=== PATIENT | male | born 1970 | race African-American/Black ===

== ENCOUNTER → 2023-01-14 | Outpatient (CLI) | payer OTHER, SELFPAY ==
--- NOTE | 2023-01-14 | COLBX_PTH ---
PATIENT: RITA LEWIS LOC: [facility] U#:[id number] AGE/SX: 52/M ROOM: RE01/14/[address]: Dr. Thiago Barboza MD : 1970 BED: DIS: 01/14/2023 SPEC #: [id number] RECD: 01/14/23 11:52 STATUS: MARICEL NAGA #: [id number] SKYE: 01/14/23 00:[address]: Thiago Barboza DEPT: SURGICAL PATHOLOGY RECD BY: Arturo Tripp Tissues: Sigmoid colon biopsy Procedures: Surgery Specimen Level IV HEADER OPERATION: Colonoscopy PRE-OP DIAGNOSIS: Screening TISSUE SUBMITTED: Sigmoid colon polyp MICROSCOPIC DIAGNOSIS Sigmoid colon polyp, biopsy: Hyperplastic polyp. OSKAR:anders 01/17/2023 MICROSCOPIC DESCRIPTION Slides are reviewed. GROSS DESCRIPTION Received in fixative is one container labeled with the patient's name and designated sigmoid colon polyp. The specimen consists of two fragments of villegas tissue measuring in aggregate 1.0 x 0.3 x 0.1 cm. The specimen is totally submitted in one cassette. / AM 01/14/2023 TC:1 CPT: 32483
== END | disposition home or self-care (01) ==
LOC: LABSPEC 14:47
PROVIDERS: Referring Provider Surgery; Visit Provider Surgery
DX: K63.5 Polyp of colon (principal)
CPT/HCPCS: 88305

== ENCOUNTER 2023-01-15 09:09 | Emergency (ER) | payer OTHER, SELFPAY ==
[2023-01-15 09:10] VITALS: BP 146/94; PULSE 63; RESP 14; TEMP 36.3; O2SAT 100; BMI 30.2
--- NOTE | 2023-01-15 09:52 | EDS_ITS ---
HPI History of Present Illness Chief Complaint: Nausea/Vomiting Narrative Narrative: 52-year-old male past medical history of hypercholesterolemia states he had routine colonoscopy performed by Dr. Barboza yesterday. Afterwards, his abdomen was firm and he felt bloated. Yesterday evening he had nausea and vomiting. In the last 24 hours he had 4-5 episodes of vomiting without any blood in his emesis. He states he is starting to pass gas as he stated he would over time. He awoke this morning and had decreased appetite and did not feel like eating breakfast. He was able to sit through a hearing aid test/fitting today and he states his abdominal pain has improved and that he is no longer vomiting. He presents with his for evaluation of the nausea and vomiting as a state that this is never happened to him previously after his colonoscopy 5 years ago and other procedures. PFSH PFSH Allergy/AdvReac Type Severity Reaction Status Date / Time No Known Allergies Allergy Verified 01/15/23 09:11 Social History Smoking Status: Never smoker ROS ROS ED ROS Narrative Constitutional: No fever, no chills. HEENT: No sore throat. No neck pain. No loss of vision. No rhinorrhea. Cardiovascular: No chest pain. No palpitations. No pedal edema. Respiratory: No cough, no shortness of breath. Abdominal: Positive abdominal bloating/abdominal pain, diffuse, improving. 4-5 episodes of nausea and vomiting in the last 24 hours after the procedure. Decreased appetite. No hematemesis. Positive flatulence. Genitourinary: No dysuria. No hematuria. Musculoskeletal: No myalgias. No arthralgias. Neurologic: No headaches. No dizziness. No lightheadedness. Skin: No rash. No change in color. Psychiatric: No depression. No anxiety. EXAM Physical Exam Narrative Exam Narrative: Afebrile. Vital signs noted. HEENT: Normocephalic. Atraumatic. PERRL, EOMI. Neck soft and supple. No point tenderness or step off. Cardiovascular: Regular rate and rhythm. No murmurs, rubs, or gallops appreciated. Respiratory: No tachypnea. Lungs clear to auscultation bilaterally. Gastrointestinal: Abdomen soft, nontender, with normoactive bowel sounds. No distention. No rebound or guarding. Neurological: Awake. Alert. Nonfocal, nonlateralizing. Skin: No rash. Normal color. No pallor. Musculoskeletal: No pedal edema. Full range of motion extremities. Const Vital Signs: 01/15/23 09:10 01/15/23 13:08 Temperature 97.3 F L Temperature Source Temporal Pulse Rate 63 60 Respiratory Rate 14 16 Blood Pressure 146/94 H 143/81 H Blood Pressure Mean 111 101 Pulse Ox 100 100 Oxygen Delivery Method Room Air Room Air MDM MDM MDM Narrative Medical decision making narrative: Patient does have bowel sounds so I am not concerned for ileus. I do not think he has a bowel obstruction. He may have had more of a reaction to the anesthesia/medication that he was given for the colonoscopy. I do not feel laboratory work is indicated as he only had 4-5 episodes of vomiting. However, I do feel that x-ray should be obtained to look for any sign of perforation or free air. Initially, patient declined any medications for nausea or for pain. I interpreted the x-rays of his abdomen/abdominal series and there is dilation of small bowel loops with air concerning for small bowel obstruction. I reviewed the radiology report which confirms my independent interpretation. They are recommending CT scan and I agree. Patient has not had any previous intra-abdominal surgeries to cause adhesions, however. I will draw basic laboratories including CBC and CMP to check his kidney function and order CT of the abdomen pelvis with IV contrast. While he declined further pain medications, he stated he would like something for nausea, so he was administered Zofran 4 mg intravenously. I reviewed the patient's laboratory work, WBC count 7.9, hemoglobin normal at 14.6, hematocrit 42.0, platelet count normal at 268. Sodium slightly low at 135 but normal potassium of 3.5 and normal chloride of 101. He has a normal BUN of 10 and creatinine also normal at 1.04. In review of his LFTs, they are essentially unremarkable. Of most significance is review of the CT report of the CT of the abdomen and pelvis with IV contrast. There is partial to complete small bowel obstruction noted with a transition point in the mid to right abdomen. NG tube will be placed. I reviewed and interpreted the KUB x-ray which does show the tip of the nasogastric tube to be in the region of the stomach. I reviewed the radiology report which confirms my independent interpretation. I discussed the patient with the on-call surgeon, Dr. Monzon who suggested that the patient be transferred to [facility] as he was just seen by one of their surgeons, Dr. Barboza. I discussed the patient with Dr. Tammy Foreman, who has accepted him in transfer. Transfer arrangements will be made through the [facility] transfer line. Currently, patient is in stable condition. Disposition is transferred. History & Record Review Discussion w/independent historian: Patient and Family Additional record(s) reviewed:: Prior outpatient record (Off patient's MyChart on cellular phone) and No prior records Lab Data Attestation: I reviewed the patient's lab results. Labs: Laboratory Results - last 24 hr 01/15/23 09:30 WBC 7.9 RBC 4.91 Hgb 14.6 Hct 42.0 MCV 85.5 MCH 29.7 MCHC 34.8 RDW Std Deviation 38.9 RDW Coeff of Kailash 12.6 Plt Count 268 MPV 11.0 Immature Gran % (Auto) 0.300 Neut % (Auto) 68.2 Lymph % (Auto) 24.3 Mckinley % (Auto) 6.7 Eos % (Auto) 0.1 Baso % (Auto) 0.4 Absolute Neuts (auto) 5.4 Absolute Lymphs (auto) 1.92 Nucleated RBC % 0 Sodium 135 L Potassium 3.5 Chloride 101 Carbon Dioxide 27.0 Anion Gap 7 BUN 10 Creatinine 1.04 Estim Creat Clear Calc 79.45 Est GFR (MDRD) Af Amer 97 Est GFR (MDRD) Non-Af 80 BUN/Creatinine Ratio 9.6 L Glucose 105 Calcium 9.3 Total Bilirubin 0.90 AST 17 ALT 25 Alkaline Phosphatase 79 Total Protein 8.0 Albumin 3.9 Globulin 4.1 Albumin/Globulin Ratio 1.0 Radiography Diagnostic Testing: Clinical Impression(s) from Imaging Studies Acute Abdomen Series 01/15/23 10:15 IMPRESSION: Dilated gaseous small bowel loops with air-fluid levels concerning for bowel obstruction. Further evaluation with CT scan of the abdomen and pelvis might be of value. Electronically Signed: Cali Dumont MD at 10:54 EDT , Abdomen/Pelvis CT 01/15/23 10:58 IMPRESSION: 1. Dilated proximal small bowel loops with normal caliber ileal loops concerning for distal small bowel obstruction which could be partial or complete. 2. Slightly prominent prostate. 3. Mild hepatic steatosis. Electronically Signed: Cali Dumont MD at 12:54 EDT , KUB X-Ray 01/15/23 14:10 IMPRESSION: Endogastric tube with the tip in the region of the stomach. Electronically Signed: Cali Dumont MD at 14:41 EDT , Discharge Plan Triage Chief Complaint: Nausea/Vomiting ED Provider: Earl Diaz Dx/Rx/DC Orders Clinical Impression: Status post colonoscopy with polypectomy, Small bowel obstruction, Nausea and vomiting Primary Care Provider: La Avila Referrals: La Avila MD [Primary Care Provider] - Disposition Disposition: Acute Care Hospital Discharge Location: [facility]
--- NOTE | 2023-01-15 10:15 | RAD_ITS ---
INDICATION: pain, nausea and vomiting after colonoscopy EXAMINATION/TECHNIQUE: X-RAY - XR Abdomen Series W/ Chest 1 View COMPARISON: None. FINDINGS: --Chest: LINES/DEVICES: None. LUNGS: Hypoventilatory changes in the right lung base. No focal infiltrate or pleural effusions. MEDIASTINUM AND CARDIOVASCULAR STRUCTURES: Cardiac silhouette not enlarged. Central airways and mediastinal contour are unremarkable. BONES AND SOFT TISSUES: No acute findings. --Abdomen: BOWEL GAS PATTERN: Dilated small bowel loops with air-fluid levels. Air is seen in the region of the rectum. FREE AIR: None visualized. ORGANOMEGALY: Not seen. CALCIFICATIONS: No abnormal calcifications observed. BONES AND SOFT TISSUES: No acute findings. RAD/Acute Abd Inc Chest (Portable) IMPRESSION: Dilated gaseous small bowel loops with air-fluid levels concerning for bowel obstruction. Further evaluation with CT scan of the abdomen and pelvis might be of value. Electronically Signed: Cali Dumont MD at 10:54 EDT ,
--- NOTE | 2023-01-15 10:58 | CT_ITS ---
STUDY: CT ABDOMEN AND PELVIS WITH CONTRAST - URINARY TRACT REASON FOR EXAM: Male, 52 years old. Pain, nausea and vomiting RADIATION DOSAGE (If Supplied By Facility): CTDIvol = ( 11.21 ) mGy, DLP = ( 887.09 ) mGycm TECHNIQUE: IV 100mL Isovue-300 was administered. Transaxial images were obtained from the dome of the diaphragm to the symphysis pubis in the arterial, nephrographic and excretory phases. Multiplanar coronal and sagittal images were reformatted. Individualized Dose Optimization Techniques Were Used For This CT. COMPARISON: Radiographs of the abdomen of the same day. FINDINGS: The visualized lung bases are unremarkable. The visualized portions of the heart are within normal limits. Small hypodense lesions in the right lobe of the above measuring less than 5 mm likely representing cysts difficult to characterize. Mild hepatic steatosis. Normal gallbladder and extrahepatic biliary system. Normal spleen. Normal pancreas. Normal bilateral adrenal glands. The antrum of the stomach is not well distended. Dilated fluid-filled small bowel loops with normal caliber ileal loops. There is a transitional zone on the right side of the mid abdomen. Colonic diverticulosis without evidence of acute diverticulitis. The colon is not distended. There is non-visualization of the appendix. Normal abdominal aorta. No retroperitoneal adenopathy. Normal right kidney. Normal left kidney. Normal urinary bladder. Prominent prostate with small calcification. Correlation with PSA level is recommended. Small umbilical hernia containing fat. Degenerative changes of the spine. CT/Abdomen/Pelvis W IV Cont ONLY IMPRESSION: 1. Dilated proximal small bowel loops with normal caliber ileal loops concerning for distal small bowel obstruction which could be partial or complete. 2. Slightly prominent prostate. 3. Mild hepatic steatosis. Electronically Signed: Cali Dumont MD at 12:54 EDT ,
[2023-01-15] MEDS: Ondansetron 4 MG/2 ML Vial IV (11:14)
[2023-01-15] MEDS: 0.9% Normal Saline 1,000 ML 1000 ML IV (11:14)
[2023-01-15 11:16] LABS: Absolute Lymphocyte Count 1.92 X10^3/uL (0.83-4.51); Absolute Neutrophil Count 5.4 X10^3/uL (2.0-7.7); Basophil# 0.03 X10^3/uL; Basophil% 0.4 % (0-1); Eosinophil# 0.01 X10^3/uL; Eosinophils% 0.1 % (0-5); Hemoglobin 14.6 g/dL (13.0-16.5); Lymphocyte # 1.92 X10^3/ul (0.83-4.51); Lymphocyte % 24.3 % (19-41); Mean Corp Hgb Conc 34.8 g/dL (32-36); Mean Corpuscular Hgb 29.7 pg (27.0-32.0); Mean Corpuscular Volume 85.5 fL (80-94); Monocyte# 0.53 X10^3/uL; Monocyte% 6.7 % (0-10); NRBC Flagged by Analyzer 0 % (0-5); Neutrophil # 5.38 X10^3/uL (2.7-7.7); Neutrophil % 68.2 % (47-70); Platelet Count 268 K/mm3 (150-450); RBC Distribution Width CV 12.6 % (11.6-14.6); RBC Distribution Width SD 38.9 fl (35.1-43.9); Red Blood Count 4.91 M/mm3 (4.6-6.2); White Blood Count 7.9 K/mm3 (4.4-11.0)
[2023-01-15 11:30] LABS: AST(SGOT) 17 U/L (15-37); Alanine Aminotransfer ALT/SGPT 25 U/L (16-61); Albumin, Serum 3.9 g/dL (3.2-5.0); Alkaline Phosphatase 79 U/L (45-117); Anion Gap 7 (5-15); BUN 10 mg/dL (7-18); BUN/Creat Ratio 9.6 RATIO (10-20); Calcium,Total 9.3 mg/dL (8.5-10.1); Chloride 101 mmol/L (98-107); Creatinine, Serum 1.04 mg/dL (0.70-1.30); EST Glomerular Filtration Rate 80 mL/min (>60); Est Glom Filt Rate - Afr Amer 97 mL/min (>60); Estimated Creatinine Clearance 79.45 ml/min; Globulin 4.1 g/dL (2.2-4.2); Glucose 105 mg/dL (74-106); Potassium 3.5 mmol/L (3.5-5.1); Sodium Level 135 mmol/L (136-145)
[2023-01-15 13:08] VITALS: BP 143/81; PULSE 60; RESP 16; O2SAT 100
[2023-01-15] MEDS: Oxymetazoline 0.05% 1 SPRAY SPRAY.BTL 2 SPRAY NASAL (13:39)
--- NOTE | 2023-01-15 14:10 | RAD_ITS ---
INDICATION: NG Insertion EXAMINATION/TECHNIQUE: X-RAY - XR Abdomen 1 View COMPARISON: Previous of the same date done earlier. FINDINGS: Nasogastric tube extends below the level of the diaphragm coiled in the region of the gastric fundus. Persistent nonspecific dilated bowel loops. RAD/Abdomen Single View (Portable) IMPRESSION: Endogastric tube with the tip in the region of the stomach. Electronically Signed: Cali Dumont MD at 14:41 EDT ,
[2023-01-15 17:22] VITALS: BP 138/79; PULSE 60; RESP 14; O2SAT 98
== END 2023-01-15 18:31 | disposition short-term general hospital (02) ==
PROVIDERS: Emergency Provider Emergency Medicine; PCP Internal Medicine; Visit Provider Emergency Medicine
DX: K56.609 Unspecified intestinal obstruction, unspecified as to partial versus complete obstruction (principal); E78.00 Pure hypercholesterolemia, unspecified; Z98.890 Other specified postprocedural states
CPT/HCPCS: 74018; 74022; 74177; 80053; 85025; 96361; 96374; 99284; J7030; Q9967; A4216; J2405

== ENCOUNTER 2023-10-14 00:52 | Emergency (ER) | payer BC, SELFPAY ==
[2023-10-14 00:53] VITALS: BP 162/89; PULSE 79; RESP 19; TEMP 36.2; O2SAT 100; BMI 31.4
[2023-10-14 01:21] LABS: Absolute Lymphocyte Count 3.94 X10^3/uL (0.83-4.51); Absolute Neutrophil Count 4.5 X10^3/uL (2.0-7.7); Basophil# 0.08 X10^3/uL; Basophil% 0.8 % (0-1); Eosinophil# 0.21 X10^3/uL; Eosinophils% 2.2 % (0-5); Hematocrit 41.6 % (40-54); Hemoglobin 14.5 g/dL (13.0-16.5); Lymphocyte # 3.94 X10^3/ul (0.83-4.51); Lymphocyte % 41.7 % (19-41); Mean Corp Hgb Conc 34.9 g/dL (32-36); Mean Corpuscular Hgb 29.4 pg (27.0-32.0); Mean Corpuscular Volume 84.2 fL (80-94); Mean Platelet Vol. 9.9 fl (6.2-12.0); Monocyte# 0.71 X10^3/uL; Monocyte% 7.5 % (0-10); NRBC Flagged by Analyzer 0 % (0-5); Neutrophil # 4.48 X10^3/uL (2.7-7.7); Neutrophil % 47.6 % (47-70); Platelet Count 263 K/mm3 (150-450); RBC Distribution Width SD 39.6 fl (35.1-43.9); Red Blood Count 4.94 M/mm3 (4.6-6.2); White Blood Count 9.4 K/mm3 (4.4-11.0)
[2023-10-14 01:41] LABS: Anion Gap 5 (5-15); BUN 18 mg/dL (7-18); BUN/Creat Ratio 14.5 RATIO (10-20); Calcium,Total 9.6 mg/dL (8.5-10.1); Chloride 105 mmol/L (98-107); Creatinine, Serum 1.24 mg/dL (0.70-1.30); EST Glomerular Filtration Rate 65 mL/min (>60); Est Glom Filt Rate - Afr Amer 79 mL/min (>60); Estimated Creatinine Clearance 75.85 ml/min; Glucose 111 mg/dL (74-106); Magnesium 2.2 mg/dL (1.6-2.6); Potassium 3.3 mmol/L (3.5-5.1); Sodium Level 137 mmol/L (136-145)
[2023-10-14 01:53] VITALS: BP 134/84; PULSE 69; RESP 16; O2SAT 97
[2023-10-14 02:00] VITALS: BP 134/88; PULSE 68; RESP 17; O2SAT 98
--- NOTE | 2023-10-14 02:03 | EDS_ITS ---
HPI History of Present Illness Chief Complaint: Numb/Ting Informant: patient and spouse/S.O. Narrative Narrative: Patient is a 53-year-old male with past medical history of hyperlipidemia. He states that he was out in his garage working when he suddenly got spasms and cramping to his right third and fourth digit and folic his forearm was tight. He states there was sensation of decreased feeling during this time. He reports symptoms lasted for a few minutes and then resolved. He states that this time he has no complaints but with concern this could have been neurologic he presents for evaluation. He denies any bouts of nausea vomiting or diarrhea which could lead to dehydration and states he does not take any type of diuretic PFSH PFS Home Medications potassium chloride 10 mEq capsule,extended release 10 meq PO DAILY 7 days #7 caps 10/14/23 [Rx Last Taken Unknown] tadalafil 5 mg tablet 5 mg PO PRN PRN sexual activity 10/14/23 [History Last Taken Unknown] Allergy/AdvReac Type Severity Reaction Status Date / Time No Known Allergies Allergy Verified 10/14/23 00:54 Social History Smoking Status: Never smoker ROS ROS ED Constitutional Constitutional ED: Denies chills or fever(s) Eyes Eyes: Denies change in vision ENT ENT ED: Denies sore throat Cardiovascular Cardiovascular: Denies chest pain or racing heartbeat Respiratory/Chest Respiratory/Chest: Denies cough or dyspnea Gastrointestinal Gastrointestinal: Denies abdominal pain, diarrhea, nausea or vomiting Genitourinary Genitourinary ED: Denies dysuria Musculoskeletal Musculoskeletal: Reports other Details: Positive right forearm pain/spasm ; Denies myalgias or neck pain Integumentary Denies rash Neurologic Neurologic: Reports paresthesias; Denies headache(s) or weakness Hematologic/Lymphatic Hematologic/Lymphatic: Denies easy bleeding or easy bruising EXAM Physical Exam Const Vital Signs: 10/14/23 00:53 10/14/23 01:53 10/14/23 02:00 Temperature 97.2 F L Temperature Source Temporal Pulse Rate 79 69 68 Respiratory Rate 19 H 16 17 Blood Pressure 162/89 H 134/84 H 134/88 H Blood Pressure Mean 113 100 103 Pulse Ox 100 97 98 Oxygen Delivery Method Room Air Room Air Room Air 10/14/23 02:20 Temperature 98.1 F Temperature Source Pulse Rate 68 Respiratory Rate 17 Blood Pressure 134/88 H Blood Pressure Mean 103 Pulse Ox 98 Oxygen Delivery Method Positive well nourished and well developed General Appearance ED: well developed; Negative for pallor HEENT HEENT Narrative: Normocephalic atraumatic Eyes PERRL and EOMs intact bilaterally Neck supple Neck Narrative: No bony deformity or step-off of the cervical spine no midline pain on palpation Negative Spurling sign bilaterally Resp normal respiratory effort and clear to auscultation bilaterally Cardio regular rate and regular rhythm Rate: other Other Details: Radial and carotid pulses are equal and symmetric No carotid bruit noted GI normal to inspection, nondistended, normoactive bowel sounds, non-tender, non- distended and no masses Auscultation: normoactive bowel sounds Palpation: soft Extremity normal to inspection Extremity Narrative: Right upper extremity is neurovascularly intact; AIN/PIN are intact and normal Patient has full active range of motion Compartments are soft and compressible going against compartment syndrome No asymmetric edema or pitting edema noted No overlying soft tissue changes to suggest trauma or infection Neuro oriented x3, CN's II-XII intact bilaterally and no sensory deficits noted Neuro Narrative: Cranial nerves II through XII are grossly intact without focal neurologic def icit No pronator drift no dysmetria no truncal ataxia NIH stroke scale score of 0 Sensorium / Orientation: alert Motor Exam: strength 5/5 throughout Psych mental status grossly normal Skin no rashes or lesions noted and no wounds General Skin Exam: Negative for jaundice or pallor MDM MDM MDM Narrative Medical decision making narrative: Patient presented to the ER hypertensive otherwise with stable vitals. He reported a spasm of his right third and fourth digit with firmness and decreased sensation in his right forearm for a few minutes. He denied any other associated symptoms. Differential diagnosis is for muscular spasm versus acute kidney injury versus electrolyte abnormality versus exertional compartment syndrome. Based on his history and exam this does not correlate with a TIA or acute stroke and I do not feel the need for a CT or CTA. Basic blood work was obtained to check for potential electrolyte abnormality and showed mild h ypokalemia at 3.3. Without treatment the patient's blood pressure improved and on reevaluation his neurologic exam remains normal with stroke scale score of 0. He also remains to have full function of the right arm without any spasms or findings of compartment syndrome. Therefore at this time history and exam indicates he most likely had a muscular spasm of the right forearm leading contracture of his third and fourth digit. His potassium was replaced as it was slightly low but as overall workup was negative with no return of symptoms I do not feel need for further evaluation and he is otherwise safe for discharge History & Record Review Discussion w/independent historian: Patient and Significant other Lab Data Attestation: I reviewed the patient's lab results. Labs: Laboratory Results - last 24 hr 10/14/23 01:13 WBC 9.4 RBC 4.94 Hgb 14.5 Hct 41.6 MCV 84.2 MCH 29.4 MCHC 34.9 RDW Std Deviation 39.6 RDW Coeff of Kailash 13.0 Plt Count 263 MPV 9.9 Immature Gran % (Auto) 0.200 Neut % (Auto) 47.6 Lymph % (Auto) 41.7 H [place] % (Auto) 7.5 Eos % (Auto) 2.2 Baso % (Auto) 0.8 Absolute Neuts (auto) 4.5 Absolute Lymphs (auto) 3.94 Nucleated RBC % 0 Sodium 137 Potassium 3.3 L Chloride 105 Carbon Dioxide 27.0 Anion Gap 5 BUN 18 Creatinine 1.24 Estim Creat Clear Calc 75.85 Est GFR (MDRD) Af Amer 79 Est GFR (MDRD) Non-Af 65 BUN/Creatinine Ratio 14.5 Glucose 111 H Calcium 9.6 Magnesium 2.2 Discharge Plan Triage Chief Complaint: Numb/Ting ED Provider: Mamadou Herring Dx/Rx/DC Orders Clinical Impression: Muscle spasm, Acute hypokalemia Instructions: ED Hypokalemia, ED Muscle Spasm Prescriptions: New potassium chloride 10 mEq capsule, extended release 10 meq PO DAILY 7 Days Qty: 7 0RF No Action tadalafil 5 mg tablet 5 mg PO PRN PRN (Reason: sexual activity) Primary Care Provider: La Avila Referrals: La Avila MD [Primary Care Provider] - Activity Restrictions/Additional Instructions: Your potassium was slightly low today which could have been the cause of your muscular spasm/hand cramping. Take the prescribed medication for the next week to bring the value to a normal level and keep yourself well-hydrated. Return to the ER should you have any further concerns Disposition Disposition: Home, Self Care Discharge Date/Time: 10/14/23 02:20
[2023-10-14] MEDS: Potassium Chloride Oral Tablet 20 MEQ PO (02:17)
[2023-10-14 02:20] VITALS: BP 134/88; PULSE 68; RESP 17; TEMP 36.7; O2SAT 98
== END 2023-10-14 02:20 | disposition home or self-care (01) ==
PROVIDERS: Emergency Provider Emergency Medicine; PCP Internal Medicine; Visit Provider Emergency Medicine
DX: M62.838 Other muscle spasm (principal); E87.6 Hypokalemia; E78.5 Hyperlipidemia, unspecified; R20.0 Anesthesia of skin
CPT/HCPCS: 80048; 83735; 85025; 99283

== ENCOUNTER 2025-01-29 12:29 | Day surgery (SDC) | payer BC, SELFPAY ==
[2025-01-29] VITALS (8 sets, daily range): BP systolic 110–130; BP diastolic 70–85; PULSE 56–69; RESP 14–18; TEMP 37–37.2; O2SAT 98–99; BMI 30.4
[2025-01-29] MEDS: Lactated Ringers 1,000 ML 15 ML IV (13:02)
--- NOTE | 2025-01-29 13:22 | PCM.PRE.AN2 ---
ASA Classification* ASA Classification ASA Classification: 1 Assessment & Plan Anesthesia* Anesthesia Assessment Anesthesia Assessment: Discussed sedation and/or anesthesia options, risks, benefits, and alternatives with patient/parents/legal guardian/POA. Questions invited. The patient/parents/legal guardian/POA seems to understand and agrees to proceed with anesthesia plan. Reviewed the physical assessment, medical history, allergy history and patient home medications list prior to surgery/procedure/anesthetic and documented any changes. Performed airway and anesthesia risk assessments. Anesthesia Type Anesthesia Type: MAC History Source History Obtained from:: Patient and Chart Anesthesia Focused Assessment* Temperature: 98.6 F Pulse Rate: 56 Blood Pressure: 130/85 Respiratory Rate: 14 Pulse Ox: 99 Oxygen Delivery Method: Room Air Airway Assessment Mouth opens: >3 cm Mallampati Score: II Teeth Condition: Intact Neck Range of motion (ROM): Full ROM Labs Anesthesia Preop lab: CBC WBC 9.4 K/mm3 (4.4-11.0) 10/14/23 01:10/14/23 RBC 4.94 M/mm3 (4.6-6.2) 10/14/23 01:10/14/23 Hgb 14.5 g/dL (13.0-16.5) 10/14/23 01:10/14/23 Hct 41.6 % (40-54) 10/14/23 01:13 10/14/23 Plt Count 263 K/mm3 (150-450) 10/14/23 01:13 10/14/23 CHEMISTRY Potassium 3.3 mmol/L (3.5-5.1) L 10/14/23 01:13 10/14/23 Sodium 137 mmol/L (136-145) 10/14/23 01:10/14/23 Magnesium 2.2 mg/dL (1.6-2.6) 10/14/23 01:10/14/23 BUN 18 mg/dL (7-18) 10/14/23 01:10/14/23 Creatinine 1.24 mg/dL (0.70-1.30) 10/14/23 01:13 10/14/23 Glucose 111 mg/dL (74-106) H 10/14/23 01:13 10/14/23 COAG Pre-Assessment Diagnosis/Proposed Procedure Planned Operative Procedure(s): EGD Anesthesia History Anesthesia History - direct of real estate: Anesthesia History - direct of real estate Hx Hospitalization No 01/24/25 13:31 Any Problems With Anesthesia No 01/24/25 13:31 Cholinesterase deficiency No 01/24/25 13:31 You/Your Family Experience No 01/24/25 13:31 fever (hyperthermia) with Relationship Recent Exposure to Contagious No 01/29/25 12:53 Disease Does patient have nerve No 01/24/25 13:31 stimulator Patient instructed to have device shut off --Does patient have Pacemaker No 01/29/25 12:53 or ICD? When Was Last Pacemaker Check QUESTION #4 FULL TEXT: You/Your Family Experience fever (hyperthermia) with Anesthesia Last Oral Intake Last Oral intake: Last Oral Intake NPO since 22:00 01/29/25 12:53 Meds taken in AM with sips of No 01/29/25 12:53 water? Meds patient instructed to take am of surgery PONV PONV - direct of real estate: PONV - direct of real estate Female No 01/24/25 13:31 HX of Motion Sickness No 01/24/25 13:31 HX of N/V After Surgery No 01/24/25 13:31 Non-Smoker Yes 01/24/25 13:31 Duration of Surgery greater No 01/24/25 13:31 than 60 minutes Number of Risk Factors 1 01/24/25 13:31 PONV Score Low Risk 01/24/25 13:31 Height & Weight Height & Weight: Anesthesia: Height & Weight Height 5 ft 7 in 01/29/25 12:53 Weight: 88 kg 01/29/25 12:53 Body Mass Index (BMI) 30.4 01/29/25 12:53 Respiratory Assessment Respiratory Assessment - direct of real estate: Respiratory Tract Infection Hx - direct of real estate Hx Respiratory Tract Infection No 01/24/25 13:31 STOP Sleep Apnea STOP Sleep Apnea - direct of real estate: STOP Sleep Apnea - direct of real estate Hx Hypertension No 01/24/25 13:31 Hx Sleep Apnea No 01/24/25 13:31 CPAP BIPAP Do you snore loudly (louder No 01/24/25 13:31 than talking or can be heard Do you often feel tired/ No 01/24/25 13:31 fatigued/ sleepy during daytime? Has anyone observed you stop No 01/24/25 13:31 breathing during sleep? STOP Results Negative 01/24/25 13:31 QUESTION #5 FULL TEXT : Do you snore loudly (louder than talking or can be heard through closed doors)? 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 Specify any problems Hx of Preganancy in last 3 N/A 01/24/25 13:31 Months Nurse Filling Out Transfusion [id number] 01/24/25 13:31 & Questions: Date: 01/24/25 01/24/25 13:31 Time: 13:33 01/24/25 13:31 Patient unable to answer at this time (ie. confused, unrespo /Reproduction History /Reproductive History - direct of real estate: /Reproductive Hx- direct of real estate Hx Now Gestational Age (in weeks): EDC: Hx Hx Para Hx Section SAB Active Medications Active Medications: Current Medications Generic Name Dose Route Start Last Admin Trade Name Freq PRN Reason Stop Dose Admin Lactated Ringer's 1,000 mls @ 15 mls/hr 01/29/25 12:45 01/29/25 13:02 IV 15 mls/hr .Q48H ELEONORA Administration PFSH Medical History (Updated 01/24/25 @ 13:36 by Dean Newsome) Wears contact lenses Wears hearing aid Loss of hearing Colonoscopy planned Former smoker Gastric reflux Home Medications ?Medication ?Instructions ?Recorded ?Last Taken ?Type omeprazole 40 mg capsule,delayed 40 mg PO QDAY PRN GERD 01/24/25 01/26/25 History release Allergy/AdvReac Type Severity Reaction Status Date / Time No Known Allergies Allergy Verified 01/29/25 12:52 Surgical History (Updated 01/24/25 @ 13:36 by Dean Newsome) H/O knee surgery Social History Smoking Status: Never smoker Review of Systems (Anesthesia) ROS Narrative System reviewed and no additional complaints, except as documented.
--- NOTE | 2025-01-29 13:30 | EGD_PTH ---
PATIENT: RITA LEWIS LOC: [facility] U#:[id number] AGE/SX: 54/M ROOM: RE01/29/[address]: Dr. Jhonathan House DO : 1970 BED: DIS: 01/29/2025 SPEC #: [id number] RECD: 01/29/25 15:52 STATUS: MARICEL REChristopher #: [id number] SKYE: 01/29/25 13:[address]: Jhonathan House DEPT: SURGICAL PATHOLOGY RECD BY: Silvino Wills ENTERED: 01/30/25 09:23 SP TYPE: EGD BIOPSY JOHNSON DR: Dr. La Avila MD Tissues: A - Esophagus, NOS B - Duodenum, NOS C - Esophagus, NOS Procedures: Surgery Specimen Level IV HEADER OPERATION: EGD with biopsy PRE-OP DIAGNOSIS: GERD TISSUE SUBMITTED: A- Distal esophagus biopsy, B- Duodenum biopsy, C- Proximal esophagus biopsy MICROSCOPIC DIAGNOSIS A. Distal esophagus, biopsy: - Columnar mucosa with no specific pathologic change. - Negative for goblet cell metaplasia. - No squamous mucosa seen. B. Duodenum, biopsy: - Normal villous architecture with Tamera gland hyperplasia and focal gastric mucin cell metaplasia. - Negative for increased intraepithelial lymphocytes. C. Proximal esophagus, biopsy: - Benign squamous mucosa negative for eosinophils. MICROSCOPIC DESCRIPTION Slides are reviewed. GROSS DESCRIPTION A. Received in fixative is one container labeled with the patient's name and designated Distal esophagus biopsy. The specimen consists of one irregular fragment of light villegas soft tissue that measures 0.3 cm. The specimen is totally submitted in one cassette. B. Received in fixative is one container labeled with the patient's name and designated Duodenum biopsy. The specimen consists of two irregular fragments of light villegas soft tissue that in aggregate measure 0.3 and 0.4 cm. The specimen is totally submitted in one cassette. C. Received in fixative is one container labeled with the patient's name and designated Proximal esophagus biopsy. The specimen consists of two irregular fragments of light villegas soft tissue that in aggregate measure 0.3 and 0.5 cm. The specimen is totally submitted in one cassette. AR 01/30/2025 CPT:65673s2
--- NOTE | 2025-01-29 13:59 | HP.PCM_ITS ---
[facility] - General General Date of Admission: 01/29/25 Date of Service: 01/29/25 Chief Complaint: GERD HPI Narrative RITA LEWIS, is a 54 M who presents with the Chief Complaint: GERD Over the past two weeks patient has been having nocturnal heartburn symptoms. This is not something he has had in the past. The first night he woke up with burning pain and was unable to breath. He notes he did have a lot of pizza and soda the night prior. He has been nervous since then and taking measures to avoid this like sleeping upright. He notices some reflux during the day. He has never had an EGD or been on PPI. Last colonoscopy was in 2022 with re commendation for repeat in 10 years. HE has had polyps in the past. REPLACED BY [facility] Medical History Wears contact lenses Wears hearing aid Loss of hearing Colonoscopy planned Former smoker Gastric reflux Home Medications ?Medication ?Instructions ?Recorded ?Last Taken ?Type omeprazole 40 mg capsule,delayed 40 mg PO QDAY PRN ASHWINI D 01/24/25 01/26/25 History release Allergy/AdvReac Type Severity Reaction Status Date / Time No Known Allergies Allergy Verified 01/29/25 12:52 Surgical History H/O knee surgery Social History Smoking Status: Never smoker ROS Constitutional Constitutional: Denies fatigue, fever(s), poor appetite, weight gain or weight loss Gastrointestinal Gastrointestinal: Denies belching, bloating, change in bowel habits, change in stool character, chewing difficulty, coffee ground emesis, constipation, cramping, diarrhea, dyspepsia, dysphagia, early satiety, excessive flatus, fecal incontinence, heartburn, hematemesis, hematochezia, hemorrhoids, loose stools, melena, nausea, odynophagia, rectal bleeding, tenesmus, vomiting or weight changes Vital Signs Vital Signs Vital Signs: 01/29/25 12:53 01/29/25 12:53 01/29/25 13:27 Temperature 98.6 F 98.6 F Temperature Source Temporal Pulse Rate 56 L 56 L Respiratory Rate 14 14 Respiratory Pattern Normal Blood Pressure 130/85 H 130/85 H Blood Pressure Mean 100 Blood Pressure Source Monitor Blood Pressure Position Semi-Fowlers Blood Pressure Location Right Arm Pulse Ox 99 99 Oxygen Delivery Method Room Air Room Air Weight Weight: 194 lb 0.108 oz Body Mass Index (BMI) 30.4 Physical Exam Const alert, oriented x3, no apparent distress and healthy appearing General Appearance: cooperative GI normal to inspection, nondistended, normoactive bowel sounds, soft to palpation, non-tender and non-distended Percussion: normal to percussion Rectal Exam: deferred Assessment & Plan Assessment/Plan (1) GERD (gastroesophageal reflux disease): PLAN: Assessment and Plan Assessment and Plan (1) Gastroesophageal reflux disease: Plan: Rita is a 54 yo male pt with reflux symptoms x2 weeks. Pt notes waking up during the night with inability to breath and burning pain in his esophagus. He now feels some GERD throughout the day. He has never had an EGD. Pt likely has GERD with possible laryngospasm. I have started him on omeprazole 40 mg daily. We may add famotidine if needed. He was scheduled for EGD however if his symptoms resolve he may cancel. He was advised to avoid fatty foods, caffeine, carbonation and chocolate. He will continue to sleep with the head of his bed elevated. -Start omeprazole 40 mg daily -EGD if symptoms do not resolve -Consider famotidine in the evening -f/u after pecodure or sooner if needed Medications: New omeprazole 40 mg PO QDAY 30 caps 1RF
--- NOTE | 2025-01-29 14:35 | PCM.POST.ANE ---
Anesthesia: Postop Eval I Current Vital Signs Temperature: 98.8 F Pulse Rate: 64 Blood Pressure: 117/79 Respiratory Rate: 16 Pulse Ox: 98 Oxygen Delivery Method: Room Air Assessment Airway patent: Yes Spontaneous unlabored respirations: Yes Mental status: Awake and Calm nausea: No Vomiting: No Anesthesia Complication: No Fluid Hydration Crystalloid volume administer (ml): 200 Total IV fluid infused: 200 Progress Note Anesthesia document: Postop Eval 1 completed: Yes
--- NOTE | 2025-01-29 14:40 | OP.PROVAT_ITS ---
01/29/2025 La Avila [address] [place] [address] Re : Upper GI endoscopy procedure for Eric Barrios Dear Dr. Avila This procedure was performed on Wednesday, January 29, 2025. My impressions and recommendations are as follows: Impressions : Recommendations : - Continue present medications. My findings are described in the full procedure note, which is enclosed. If I can be of further assistance, please feel free to contact me at . Sincerely, Jhonathan House, 01/29/2025 2:39:36 PM This report has been signed electronically.
--- NOTE | 2025-01-29 14:40 | OP.EGD_ITS ---
Patient Name: Eric Barrios Procedure Date: 01/29/2025 2:09 PM Date of : 1970 Age: 54 Procedure: Upper GI endoscopy Indications: Suspected esophageal reflux Providers: Jhonathan House DO Referring MD: La Avila Medicines: Monitored Anesthesia Care Patient Profile: This is a 54 year old male. Refer to note in patient chart for documentation of history and physical. Patient has symptoms of acute regurgitation and acute throat burning. Complications: No immediate complications. Procedure: Pre-Anesthesia Assessment: - Prior to the procedure, a History and Physical was performed, and patient medications and allergies were reviewed. The patient is competent. The risks and benefits of the procedure and the sedation options and risks were discussed with the patient. All questions were answered and informed consent was obtained. Patient identification and proposed procedure were verified by the physician in the pre-procedure area. Mental Status Examination: alert and oriented. Airway Examination: normal oropharyngeal airway and neck mobility. Respiratory Examination: clear to auscultation. CV Examination: normal. Prophylactic Antibiotics: The patient does not require prophylactic antibiotics. Prior Anticoagulants: The patient has taken no anticoagulant or antiplatelet agents except for NSAID medication. ASA Grade Assessment: II - A patient with mild systemic disease. After reviewing the risks and benefits, the patient was deemed in satisfactory condition to undergo the procedure. The anesthesia plan was to use monitored anesthesia care (MAC). Immediately prior to administration of medications, the patient was re-assessed for adequacy to receive sedatives. The heart rate, respiratory rate, oxygen saturations, blood pressure, adequacy of pulmonary ventilation, and response to care were monitored throughout the procedure. The physical status of the patient was re-assessed after the procedure. After obtaining informed consent, the endoscope was passed under direct vision. Throughout the procedure, the patient's blood pressure, pulse, and oxygen saturations were monitored continuously. The gastroscope was introduced through the mouth, and advanced to the second part of duodenum. The upper GI endoscopy was accomplished without difficulty. The patient tolerated the procedure well. Scope In: 2:20:27 PM Scope Out: 2:25:15 PM Total Procedure Duration Time 0 hours 4 minutes 48 seconds Findings: Patchy mild erythema was found in the upper third of the esophagus and in the lower third of the esophagus. Biopsies were taken with a cold forceps for histology. Verification of patient identification for the specimen was done. Estimated blood loss was minimal. No gross lesions were noted in the entire examined stomach. Patchy mildly erythematous mucosa without active bleeding and with no stigmata of bleeding was found in the duodenal bulb. Biopsies for histology were taken with a cold forceps for evaluation of celiac disease. Estimated blood loss: none. Recommendation: - Continue present medications. Jhonathan House DO 01/29/2025 2:39:36 PM This report has been signed electronically. Number of Addenda: 0 Note Initiated On: 01/29/2025 2:09 PM
--- OUTSIDE RECORDS SUMMARY | 2025-01-29 22:20 | XMS RPT_ITS | CCD ---
Author Organization [facility]iniSyme Care Team Providers Care Manager Code Name Role Phone John HOBBS Attending Unavailable YAZMIN CAMPBELL CCorina Primary Care Unavailable Yazmin Campbell MD Primary Care Provider Yazmin Campbell MD Primary Care Provider Yazmin Campbell MD Primary Care Provider Yazmin Campbell MD Primary Care Provider SHANNAN, YAZMIN Primary Care Unavailable TAMMY FOREMAN Referring Unavailable TAMMY FOREMAN Attending Unavailable TAMMY FOREMAN Admitting Unavailable Su Davila RN, Quiana Unavailable Yazmin Campbell MD Primary Care Provider Priya Oneil PA-C Unavailable [phone] Older VENTILATOR SPECIALIST.EMBROIDERER, Brittnee Unavailable Gunnar Lopez PA-C Unavailable Dr. Yazmin Campbell MD Primary Care Provider Dr. Yazmin Campbell MD Referring Provider Idalmis Ahumada Attending Provider OLDER, BRITTNEE Attending Unavailable GANTA, YAZMIN Primary Care Unavailable OLDER, BRITTNEE Referring Unavailable GANTA, YAZMIN Primary Care Unavailable MANI WELCH Attending Unavailelvia e GANTA, YAZMIN Primary Care Unavailable GUNNAR LOPEZ Referring Unavailable GANTA, YAZMIN Primary Care Unavailable GUNNAR LOPEZ Attending Unavailable GANTA, YAZMIN Primary Care Unavailable MANI WELCH Attending Unavailabl e SELF Referring Unavailable GANTA, YAZMIN Primary Care Unavailable Idalmis Dasilva Attending Unavailable Ganta, Yazmin Referring Unavailable Ganta, Yazmin Primary Care Unavailable Yazmin Campbell Primary Care Unavailable FriendJhonathan Attending Unavailable Yazmin Campbell Referring Unavailable Friend Dr. Jhonathan STEWART Attending Provider Friend Dr. Jhonathan STEWART Other Provider Allergies Allergy Classification Reported Allergen(s) Allergy Type Date of Onset Reaction(s) Facility (2 sources) Seasonal allergy; Translations: [SEASONAL ALLERGIES] Propensity to adverse reactions (disorder) 9 [facility] Other [place] [facility] Medications Current Medications Medication Drug Class(es) Dates Sig (Normalized) Sig (Original) omeprazole 40 mg delayed release oral capsule (4 sources) Proton Pump Inhibitor Start: 12-05-2024 End: 01-24-2025 take 1 capsule by mouth once daily as needed for gastroesophageal reflux disease Omeprazole 40 mg capsule,delayed release(DR/EC) Active 40 mg PO daily as needed for GERD January 24, 2025 12:00am potassium chloride 10 meq extended release oral tablet (15 sources) Start: 10-24-2023 take 1 tablet by mouth once daily at breakfast potassium chloride (K-TAB) 10 mEq tablet Take 1 tablet by mouth daily with breakfast. 30 tablet 1 10/24/2023 Active Start: 10-14-2023 End: 01-24-2025 take 1 capsule by mouth once daily Potassium Chloride 10 mEq capsule, extended release Discontinued 10 meq PO DAILY 7 7 0 October 14, 2023 12:00am January 24, 2025 1:29pm Completed/Discontinued Medications Medication Drug Class(es) Dates Sig (Normalized) Sig (Original) aluminum chloride 200 mg/ml topical solution (20 sources) Start: 04-11-2024 End: 12-28-2024 aluminum chloride (DRYSOL) 20 % external solution Indications: hyperhidrosis Apply to dry underarms at bedtime and wash off the next morning. Do not apply to wounds or broken, irritated, or recently shaved skin 60 mL 3 04/11/2024 12/28/2024 Discontinued Start: 05-21-2019 End: 03-27-2025 aluminum chloride (DRYSOL) 2 0 % external solution Indications: Axillary hyperhidrosis Apply 1 application to affected area daily at bedtime. Decrease to 1-2 times weekly once sweating improves 35 mL 5 10/19/2023 03/27/2025 Active Comment on above: Apply 1 application to affected area daily at bedtime. Decrease to 1-2 times weekly once sweating improves benzonatate 100 mg oral capsule (8 sources) Non-narcotic Antitussive Start: 023 End: 023 take 2 capsules by mouth every eight hours as needed benzonatate (TESSALON PERLES) 100 mg capsule Take 2 capsules by mouth three times daily as needed. 30 capsule 0 07/21/2022 01/17/2023 Discontinued Comment on above: Take 2 capsules by m out three times daily as needed. onabotulinumtoxina 100 unt injection (6 sources) Acetylcholine Release Inhibitor Start: 025 End: 025 onabotulinum toxin type A 200 Units injection (BOTOX) Start: 09-26-2024 End: 09-26-2024 200 Units, INTRADERMAL, ONCE , 1 dose, On Tue09/26/24 at 1600, This record documents the total dose provided to patient. See progress note for specific locations and amounts administered. REFRIGERATE - Pharmaceutical Waste: Lab Pack - Start: 04-11-2024 End: 04-11-2024 onabotulinum toxin type A 20 0 Units injection (BOTOX) Start: 04-11-2024 End: 04-11-2024 200 Units, INTRADERMAL, ONCE , 1 dose, On Tue04/11/24 at 1530, This record documents the total dose provided to patient. See progress note for specific locations and amounts administered. REFRIGERATE - Pharmaceutical Waste: Lab Pack - Start: 10-19-2023 End: 10-19-2023 onabotulinum toxin type A 20 0 Units injection (BOTOX) Start: 02-02-2023 End: 02-02-2023 onabotulinum toxin type A 20 0 Units injection (BOTOX) glycopyrrolate 1 mg oral tablet (4 sources) Start: 05-28-2019 End: 03-16-2022 take 1 tablet by mouth twice daily glycopyrrolate (ROBINUL) 1 mg tablet Indications: Hyperhidrosis Take 1 tablet by mouth twice daily. 60 tablet 0 05/28/2019 03/16/2022 Discontinued Comment on above: Take 1 tablet by jess th twice daily. tadalafil 5 mg oral tablet (20 sources) Phosphodiesterase 5 Inhibitor Start: 11-15-2022 End: 01-24-2025 Tadalafil 5 mg tablet Discontinued 5 mg PO NEEDED as needed for sexual activity October 14, 2023 12:00am January 24, 2025 1:30pm Start: 07-30-2021 End: 11-12-2022 Tadalafil (CIALIS) 5 mg tabl et Indications: Erectile dysfunction, unspecified erectile dysfunction type Take 1 tablet by mouth as needed. Take prior to sexual activity. 30 tablet 1 03/16/2022 11/12/2022 Discontinued Comment on above: Take 1 tablet by jess th as needed. Take prior to sexual activity. tretinoin 0.0005 mg/mg topical gel (20 sources) Retinoid Start: 04-23-2024 End: 12-28-2024 tretinoin 0.05 % gel Apply a pea-sized amount to whole face at night as tolerated. Start every other night and advance as tolerated. 20 g 04/23/2024 12/28/2024 Discontinued Start: 01-20-2021 End: 04-23-2024 tretinoin (RETIN-A) 0.05 % c ream Apply pea sized amount to full face nightly. May start every other night and advance to nightly as tolerated. 45 g 2 04/11/2024 04/23/2024 Discontinued Comment on above: Apply pea sized amou nt to full face nightly. May start every other night and advance to nightly as tolerated. Problems Active Problems Problem Classification Problem Date Documented Da te Episodic/Chronic Chronic obstructive pulmonary disease and bronchiectasis (1 source) Bronchitis; Translations: [Bronchitis, not specified as acute or chronic] 07-21-2022 Episodic Diabetes mellitus without complication (4 sources) Increased glucose level; Translations: [Other abnormal glucose] Onset: 4 06-05-2024 Episodic Disorders of lipid metabolism (20 sources) Mixed hyperlipidemia; Translations: [Mixed hyperlipidemia] Onset: 6 07-03-2016 Chronic Esophageal disorders (6 sources) Gastroesophageal reflux disease; Translations: [Gastro-esophageal reflux disease without esophagitis] Onset: 5 12-05-2024 Chronic Fluid and electrolyte disorders (4 sources) Acute hypokalemia; Translations: [Hypokalemia] 10-14-2023 Episodic Gastrointestinal hemorrhage (1 source) Hematochezia; Translations: [Melena] Episodic Immunizations and screening for infectious disease (20 sources) Patient encounter status; Translations: [Encounter for immunization] Onset: 3 Episodic Intestinal obstruction without hernia (20 sources) Unspecified intestinal obstruction, unspecified as to partial versus complete obstruction; Translations: [Small bowel obstruction] Onset: 3 01-15-2023 Episodic Nausea and vomiting (20 sources) Nausea and vomiting; Translations: [Nausea with vomiting, unspecified] Onset: 3 01-15-2023 Episodic Other circulatory disease (1 source) Elevated blood pressure; Translations: [Elevated blood-pressure reading, without diagnosis of hypertension] 12-28-2024 Episodic Other circulatory disease (1 source) Elevated blood-pressure reading, without diagnosis of hypertension; Translations: [Elevated blood pressure reading] Onset: 5 Episodic Other connective tissue disease (3 sources) Spasm; Translations: [Other muscle spasm] 10-14-2023 Episodic Other connective tissue disease (1 source) Hand cramps; Translations: [Cramp and spasm] 11-09-2023 Episodic Other ear and sense organ disorders (1 source) Excessive cerumen in ear canal ; Translations: [Impacted cerumen, bilateral] Episodic Other ear and sense organ disorders (1 source) Impacted cerumen of bilateral ears; Translations: [Impacted cerumen, bilateral] 12-28-2024 Episodic Other ear and sense organ disorders (1 source) Impacted cerumen, bilateral; Translations: [Bilateral impacted cerumen] Onset: 5 Episodic Other lower respiratory disease (1 source) Cough; Translations: [Acute cough] 06-05-2024 Episodic Other male genital disorders (6 sources) Male erectile dysfunction, unspecified; Translations: [Impotence of organic origin] Chronic Other nutritional; endocrine; and metabolic disorders (1 source) Obesity; Translations: [Obesity, unspecified] 11-09-2023 Chronic Other skin disorders (3 sources) Hyperhidrosis of axilla; Translations: [Primary focal hyperhidrosis, axilla] Episodic Other skin disorders (1 source) Primary focal hyperhidrosis of palm of hand; Translations: [Primary focal hyperhidrosis, palms] Episodic Other skin disorders (5 sources) Hyperhidrosis of palms; Translations: [Primary focal hyperhidrosis, palms] Episodic Residual codes; unclassified (4 sources) History of colonoscopy; Translations: [Other specified postprocedural states] 01-15-2023 Episodic Residual codes; unclassified (2 sources) FH: premature coronary heart disease; Translations: [Family history of ischemic heart disease and other diseases of the circulatory system] 12-28-2024 Episodic Residual codes; unclassified (1 source) Family history of ischemic heart disease and other diseases of the circulatory system; Translations: [Family history of early CAD] Onset: 5 Episodic Screening and history of mental health and substance abuse codes (2 sources) Encounter for screening for depression; Translations: [Encounter for screening examination for other mental health and behavioral disorders] Onset: 5 Episodic Past or Other Problems Problem Classification Problem Date Documented Da te Episodic/Chronic Other screening for suspected conditions (not mental disorders or infectious disease) (1 source) Encounter for screening for malignant neoplasm of prostate; Translations: [Screening for prostate cancer] Onset: 06-05-2024 Episodic Other skin disorders (1 source) Primary focal hyperhidrosis, palms; Translations: [Hyperhidrosis of palms] Onset: 04-11-2024 Episodic Results Test Name Value Interpretation Reference Range Facility [facility] 12-28-2024 CNOV Office Visit (INTMWS ) -- RITA LEWIS ([id number]) 1970 M Date Time Provider Department 12/28/24 11:00 AM BRITTNEE SHEFFIELD During your visit today, we recorded the following information about you: Pulse Respiration Blood pressure Weight 64/minute 16/minute 140/88 86.6 kg Brittnee Sheffield APRN.CNP 12/28/2024 12:34 PM Signed CC: Patient presents with: Physical: Annual Physical HPI Rita Lewis is a 54 year old male who presents today for annual exam. Recording using Knomo software for draft documentation of the visit was discussed with the patient/authorized assisted sales representative; all questions welcomed and answered. Patient/authorized assisted sales representative agreed to proceed Annual Wellness Exam: - Family history: - Mother: HTN, hyperlipidemia. - Father: CVA at age 50. - Brother: Diabetes, multiple sclerosis. - Sister: in 2022 from cardiomegaly. - Exercises by jogging 5 miles a day, 5 days a week; denies any chest or back pain, abnormal fatigue, or dizziness during exercise. - Attempts to follow a low-fat, low-salt diet, successful about 75% of the time. GERD: - Recent consultation with a planner chief; scheduled for endoscopy at the end of the month. - Prescribed omeprazole, with slight improvement in symptoms. - Reports a severe episode of dyspnea while sitting up in bed after consuming four pieces of pizza, described as terrifying. - Constant throat clearing and occasional acid taste. - Denies abdominal pain, nausea, or dysphagia. Hyperlipidemia and Elevated Blood Pressure: - No previous cardiac workup since his 20s. - Has not taken statins; hesitant due to concerns about side effects. - Inconsistent use of red yeast rice supplement. - No regular blood pressure monitoring at home. - Denies chest pain, shortness of breath, exercise intolerance, edema, palpitations, or headaches. Pre-Diabetes: - No regular blood sugar monitoring. - Denies increase thirst, hunger, or urination Cerumen Impaction: - Last ear cleaning approximately 7 months ago. - Reports a chirping noise with hearing aid, believed to be due to cerumen impaction. - Denies ear pain, sinus congestion, or ear drainage. REVIEW OF SYSTEMS General: no fevers, no chills, no night sweats, no recurrent infections, no change in appetite, no change in energy, and no significant changes in weight Respiratory: no cough, no wheezing, no shortness of breath, no hemoptysis GI: No nausea, vomiting, or diarrhea : No history of dysuria, frequency or incontinence Psych: PHQ2 and GAD2 are 0 Endocrine: no fatigue, no polyuria, no polyphagia, and no polydipsia Neurologic: No headache, weakness, numbness, tingling, dizziness, memory loss, syncope. PAST MEDICAL HISTORY Diagnosis Date Elevated cholesterol History of colonic polyps PAST SURGICAL HISTORY Procedure Laterality Date ARTHRO KNEE MEDIAL REL Right COLONOSCOPY FLX DX W/COLLJ SPEC WHEN PFRMD 08/2012 Colonoscopy COLONOSCOPY FLX DX W/COLLJ SPEC WHEN PFRMD 07/29/2017 repeat in 5 years COLONOSCOPY GEN ANES 2010 ALLERGIES Seasonal Allergies MEDICATIONS omeprazole (PRILOSEC) 40 mg capsule Take 1 capsule by mouth once daily. potassium chloride (K-TAB) 10 mEq tablet Take 1 tablet by mouth daily with breakfast. aluminum chloride (DRYSOL) 20 % external solution Apply 1 application to affected area daily at bedtime. Decrease to 1-2 times weekly once sweating improves FAMILY HISTORY Problem Relation Age of Onset Hypertension Mother other (cholesterol) Mother Stroke Father other (enlarged heart) Sister Diabetes Brother Multiple Sclerosis Brother Social History Tobacco Use Smoking status: Never Smokeless tobacco: Never Vaping Use Vaping status: Never Used Substance Use Topics Alcohol use: No Drug use: No PHYSICAL EXAM BP 140/88 Pulse 64 Resp 16 Wt 86.6 kg (191 lb) SpO2 98% BMI 29.91 kg/m? General Appearance: well appearing, in no acute distress, alert Pysch: mood and affect broad and appropriate Eyes: conjunctiva pink and moist, no icterus, sclera white, non-injected Ears: external ears normal to inspection and palpation, canals clear bilateral cerumen impaction prior to irrigation. Post irrigation: Left TM normal, right still with small amount of TM Neck: Thyroid normal size and symmetric without palpable nodules, Neck supple, No adenopathy Lymph nodes: No cervical lymphadenopathy and No supraclavicular lymphadenopathy Lungs: Lungs clear to auscultation. No wheezing, rhonchi, rales. Heart: RRR without murmur, gallop, or rubs. No ectopy Abdomen: Abdomen soft, non-tender. Bowel sounds normal. No masses, organomegaly Health maintenance reviewed with patient: Hepatitis C Screening Never done HIV Screening Never done DTaP,Tdap,Td Vaccine(1 - Tdap) due on 12/28/2025 Hepatitis B Vaccine(1 of 3 - 19+ 3-dose series) du (more content not included)... Normal [facility] metabolic 2000 panelon 12-28-2024 Albumin [Mass/Vol] 4.6 g/dL Normal 3.9-4.9 [facility] Comment on above: Order Comment: Speci men Type: BLOOD SPECIMEN [facility] Address: [address] [place] [address] Performed By: #### 3 016-3, 97901-5, #### [facility] CLIA [id number] [address] [place] [address] [place] ALP [Catalytic activity/Vol] 70 U/L Normal 38-113 [facility] Comment on above: Order Comment: Speci men Type: BLOOD SPECIMEN [facility]ing Facility[facility] Address: [address] [place] [address] Performed By: #### 3 016-3, 03824-1, #### [facility] CLIA [id number] [address] [place] [address] [place] ALT [Catalytic activity/Vol] 20 U/L Normal 10-54 [facility] Comment on above: Order Comment: Speci men Type: BLOOD SPECIMEN [facility]ing Facility[facility] Address: [address] [place] [address] Performed By: #### 3 016-3, 11186-5, #### [facility] CLIA [id number] [address] [place] [address] [place] Anion gap [Moles/Vol] 10 mmol/L Normal 8-15 [facility] Comment on above: Order Comment: Speci men Type: BLOOD SPECIMEN [facility] Address: [address] [place] [address] Performed By: #### 3 016-3, 58925-7, 72100-8 #### [facility] CLIA [id number] [address] [place] [address] [place] AST [Catalytic activity/Vol] 19 U/L Normal 14-40 [facility] Comment on above: Order Comment: Speci men Type: BLOOD SPECIMEN [facility] Address: [address] [place] [address] Performed By: #### 3 016-3, 68793-9, 53074-4 #### [facility] CLIA [id number] [address] [place] [address] [place] Bilirubin [Mass/Vol] 0.4 mg/dL Normal 0.2-1.3 [facility] Comment on above: Order Comment: Speci men Type: BLOOD SPECIMEN [facility] Address: [address] [place] [address] Performed By: #### 3 016-3, 28059-3, 92722-0 #### [facility] CLIA [id number] [address] [place] [address] [place] Calcium [Mass/Vol] 10.4 mg/dL High 8.5-10.2 [facility] Comment on above: Order Comment: Speci men Type: BLOOD SPECIMEN [facility] Address: [address] [place] [address] Performed By: #### 3 016-3, 71216-6, 83507-7 #### [facility] CLIA [id number] [address] [place] [address] [place] Chloride [Moles/Vol] 103 mmol/L Normal 98-107 [facility] Comment on above: Order Comment: Speci men Type: BLOOD SPECIMEN [facility] Address: [address] [place] [address] Performed By: #### 3 016-3, 06440-4, 50561-7 #### [facility] CLIA [id number] [address] [place] [address] [place] CO2 [Moles/Vol] 27 mmol/L Normal 22-30 [facility] Comment on above: Order Comment: Speci men Type: BLOOD SPECIMEN [facility] Address: [address] [place] [address] Performed By: #### 3 016-3, 73339-8, 74902-9 #### [facility] CLIA [id number] [address] [place] [address] [place] Creatinine [Mass/Vol] 0.96 mg/dL Normal 0.73-1.22 [facility] Comment on above: Order Comment: Ca morales Type: BLOOD SPECIMEN [facility] Address: [address] [place] [address] Performed By: #### 3 016-3, 58497-5, #### [facility] CLIA [id number] [address] [place] [address] [place] Creatinine and Glomerular filtration rate.predicted panel (S/P/Bld) 95 mL/min/1.73m??? Normal >=60 [facility] Comment on above: Order Comment: Ca morales Type: BLOOD SPECIMEN [facility] Address: [address] [place] [address] Result Comment: Barbara mated Glomerular Filtration Rate (eGFR) is calculated using the 2020 CKD-EPI creatinine equation. This equation utilizes serum creatinine, sex, and age as parameters. The creatinine assay has traceable calibration to isotope dilution-mass spectrometry. Refer to KDIGO guidelines for clinical interpretation. In patients with unstable renal function, e.g. those with acute kidney injury, the eGFR may not accurately reflect actual GFR. Performed By: #### 3 016-3, 60939-5, #### [facility] CLIA [id number] [address] [place] [address] [place] Glucose [Mass/Vol] 89 mg/dL Normal 74-99 [facility] Comment on above: Order Comment: Ca morales Type: BLOOD SPECIMEN [facility] Address: [address] [place] [address] Result Comment: The [place] [employer] (ADA) provides guidance for cutoff values for fasting glucose and random glucose. The ADA defines fasting as no caloric intake for at least 8 hours. Fasting plasma glucose results between 100 to 125 mg/dL indicate increased risk for diabetes (prediabetes). Fasting plasma glucose results greater than or equal to 126 mg/dL meet the criteria for diagnosis of diabetes. In the absence of unequivocal hyperglycemia, results should be confirmed by repeat testing. In a patient with classic symptoms of hyperglycemia or hyperglycemic crisis, random plasma glucose results greater than or equal to 200 mg/dL meet the criteria for diagnosis of diabetes. Reference: Standards of Medical Care in Diabetes 2016, [place] [employer] Association. Diabetes Care. 2016.39(Suppl 1). Performed By: #### 3 016-3, 32608-2, 62832-7 #### [facility] CLIA [id number] [address] [place] [address] [place] Potassium [Moles/Vol] 4.2 mmol/L Normal 3.7-5.1 [facility] Comment on above: Order Comment: Speci men Type: BLOOD SPECIMEN [facility] Address: [address] [place] [address] Performed By: #### 3 016-3, 04184-4, 51673-1 #### [facility] CLIA [id number] [address] [place] [address] [place] Protein [Mass/Vol] 7.6 g/dL Normal 6.3-8.0 [facility] Comment on above: Order Comment: Speci men Type: BLOOD SPECIMEN [facility] Address: [address] [place] [address] Performed By: #### 3 016-3, 46962-6, 08366-5 #### [facility] CLIA [id number] [address] [place] [address] [place] Sodium [Moles/Vol] 140 mmol/L Normal 136-144 [facility] Comment on above: Order Comment: Speci men Type: BLOOD SPECIMEN [facility] Address: [address] [place] [address] Performed By: #### 3 016-3, 16034-9, 86761-7 #### [facility] CLIA [id number] [address] [place] [address] [place] Urea nitrogen [Mass/Vol] 14 mg/dL Normal 9-24 [facility] Comment on above: Order Comment: Speci men Type: BLOOD SPECIMEN [facility] Address: [address] [place] [address] Performed By: #### 3 016-3, 51992-2, 52954-2 #### [facility] CLIA [id number] [address] [place] [address] [place] HCV Ab Ser Qlon 12-28-2024 HCV Ab Ql (S) Negative Normal Negative [facility] Comment on above: Order Comment: Speci men Type: BLOOD SPECIMEN [facility] Address: [address] [place] [address] Result Comment: The result suggests no evidence of infection with Hepatitis C virus. Should recent infection be suspected, repeat testing may be considered 4-6 weeks after this draw. Performed By: #### 3 016-3, 54366-2, 62233-4 #### [facility] CLIA [id number] [address] [place] [address] [place] HIV 1+2 Ab IA Qlon HIV 1 and 2 Ab IA.rapid Nom (S/P/Bld) Normal [facility] Comment on above: Order Comment: Speci men Type: BLOOD SPECIMEN [facility] Address: [address] [place] [address] Result Comment: Test not indicated. Performed By: #### 3 016-3, 80614-7, 50476-7 #### [facility] CLIA [id number] [address] [place] [address] [place] HIV 1+2 Ab+HIV1 p24 Ag IA Ql Non-Reactive Normal Nonreactive [facility] Comment on above: Order Comment: Speci men Type: BLOOD SPECIMEN [facility] Address: [address] [place] [address] Performed By: #### 3 016-3, 43986-9, #### [facility] CLIA [id number] [address] [place] [address] [place] HIV immunoassay testing algorithm interpretation (S/P/Bld) [Interp] Normal [facility] Comment on above: Order Comment: Speci men Type: BLOOD SPECIMEN [facility]ing Facility[facility] Address: [address] [place] [address] Result Comment: No e vidence of HIV-1 or HIV-2 infection. Should recent infection be suspected, repeat testing may be considered 2-3 weeks after this draw. [place] Rev. Code 3701.243(E): This information has been disclosed to you from confidential records protected from disclosure by state law. You shall make no further disclosure of this information without the specific, written, and informed release of the individual to whom it pertains or as otherwise permitted by state law. A general authorization for the release of medical or other information is not sufficient for the purpose of the release of HIV test results or diagnoses. Performed By: #### 3 016-3, 33357-7, #### [facility] CLIA [id number] [address] [place] [address] [place] HbA1c (Bld)on 12-28-2024 Average glucose Estimated from glycated hemoglobin (Bld) [Mass/Vol] 111 mg/dL Normal [facility] Comment on above: Order Comment: Speci men Type: BLOOD SPECIMEN [facility] Address: [address] [place] [address] Result Comment: eAG: (Estimated average glucose) is a calculated value from HgbA1c and is assisted sales representative of the average blood glucose level in the last 2-3 month period. Performed By: #### 3 016-3, 34252-3, #### [facility] CLIA [id number] [address] [place] [address] [place] HbA1c (Bld) [Mass fraction] 5.5 % Normal 4.3-5.6 [facility] Comment on above: Order Comment: Speci men Type: BLOOD SPECIMEN [facility] Address: [address] [place] [address] Result Comment: Amer ican Diabetes Association guidelines indicate that patients with HgbA1c in the range 5.7-6.4% are at increased risk for development of diabetes, and intervention by lifestyle modification may be beneficial. HgbA1c greater or equal to 6.5% is considered diagnostic of diabetes. Performed By: #### 3 016-3, 58838-1, 20588-4 #### [facility] CLIA [id number] [address] [place] [address] [place] Lipid 1996 panelon 5 Cholesterol [Mass/Vol] 254 mg/dL High <200 [facility] Comment on above: Order Comment: Ca morales Type: BLOOD SPECIMEN [facility] Address: [address] [place] [address] Result Comment: <200 mg/dL, Desirable 200-239 mg/dL, Borderline high >239 mg/dL, High Performed By: #### 3 016-3, 07734-0, 36814-6 #### [facility] CLIA [id number] [address] [place] [address] [place] Cholesterol in HDL [Mass/Vol] 43 mg/dL Normal >39 [facility] Comment on above: Order Comment: Ca morales Type: BLOOD SPECIMEN [facility] Address: [address] [place] [address] Result Comment: 40-5 9 mg/dL, Acceptable >59 mg/dL, High: Negative risk factor for coronary heart disease <40 mg/dL, Low: Positive risk factor for coronary heart disease Performed By: #### 3 016-3, 77025-7, 56824-8 #### [facility] CLIA [id number] [address] [place] [address] [place] Cholesterol in LDL [Mass/Vol] 200 mg/dL High <100 [facility] Comment on above: Order Comment: aC men Type: BLOOD SPECIMEN [facility] Address: [address] [place] [address] Result Comment: <100 mg/dL, Optimal 100-129 mg/dL, Near optimal/above optimal 130-159 mg/dL, Borderline high 160-189 mg/dL, High >189 mg/dL, Very high Secondary prevention optimal LDL Cholesterol levels are recommended to be <70 mg/dL LDL cholesterol is calculated using the Feliz-NIH equation. Performed By: #### 3 016-3, 36239-1, #### [facility] CLIA [id number] [address] [place], [place] [address] [address] [place] Cholesterol in LDL/Cholesterol in HDL [Mass ratio] 4.65 {ratio} High <2.54 [facility] Comment on above: Order Comment: Speci men Type: BLOOD SPECIMEN [facility] Address: [address] [place] [address] Result Comment: Refe rubiace: 1. National Cholesterol Education Program ATP III Guideline At-A-Glance Quick Desk Reference: National Heart, Lung, and Blood Mcgee. National Institutes of Health. 2001: NIH Publication No. 01-3305. 2. An International Atherosclerosis Society position paper: global recommendations for the management of dyslipidemia: executive summary, Atherosclerosis. 2014: 232(2):410-413. Performed By: #### 3 016-3, 46906-0, #### [facility] CLIA [id number] [address] [place], [place] [address] [place] [address] [place] Cholesterol in VLDL [Mass/Vol] 14 mg/dL Normal <30 [facility] Comment on above: Order Comment: Wilmari men Type: BLOOD SPECIMEN [facility] Address: [address] [place] [address] Performed By: #### 3 016-3, 39104-7, #### [facility] CLIA [id number] [address] [place], [place] [address] [address] [place] Cholesterol non HDL [Mass/Vol] 211 mg/dL High <130 [facility] Comment on above: Order Comment: Speci men Type: BLOOD SPECIMEN [facility] Address: [address] [place] [address] Result Comment: <130 mg/dL, Optimal 130-159 mg/dL, Near optimal/above optimal 160-189 mg/dL, Borderline high 190-219 mg/dL, High >219 mg/dL, Very high Secondary prevention optimal non HDL Cholesterol levels are recommended to be <100 mg/dL Performed By: #### 3 016-3, 19321-4, 08774-3 #### [facility] CLIA [id number] [address] [place] [address] [place] Cholesterol.total/Ch olesterol in HDL [Mass ratio] 5.91 {ratio} High <5.10 [facility] Comment on above: Order Comment: Wilmari men Type: BLOOD SPECIMEN [facility] Address: [address] [place] [address] Performed By: #### 3 016-3, 25513-0, 64467-8 #### [facility] CLIA [id number] [address] [place] [address] [place] FASTING TIME 12 hrs Normal [facility] Comment on above: Order Comment: Wilmari men Type: BLOOD SPECIMEN [facility] Address: [address] [place] [address] Performed By: #### 3 016-3, 32344-1, 28566-8 #### [facility] CLIA [id number] [address] [place] [address] [place] Triglyceride [Mass/Vol] 66 mg/dL Normal <150 [facility] Comment on above: Order Comment: Speci men Type: BLOOD SPECIMEN [facility] Address: [address] [place] [address] Result Comment: <150 mg/dL, Normal 150-199 mg/dL, Borderline high 200-499 mg/dL, High >499 mg/dL, Very high Performed By: #### 3 016-3, 60193-3, 47243-7 #### [facility] CLIA [id number] [address] [facility] [place] [facility] [place] [address] [address] [place] Gastroenterology Visit Repor ton 12-05-2024 Gastroenterology Visit Report [facility] [address] [place] [address] OFFICE VISIT Date of Service: 12/05/24 MR#: [id number] Acct: [id number] Name: RITA LEWIS Rep #: [id number] : 1970 Provider: DONNA Nunes Age/Sex: 54/M [place] [facility] Status: Signed Intake Vital Signs 10/14/23 00:53 Height 5 ft 7 in Intake Visit Reasons: Acid reflux Chief Complaint: GERD Allergies No Known Allergies Allergy (Verified 10/14/23 00:54) Nurse's Note: OV 12.05.24 Pt here to establish care with [facility]. Pt reports heartburn, constipation, Pt reports bm 2-3 daily but has to strain. Pt has a prior hx of colonoscopy but no prior EGD. [facility] Social History Smoking Status: Never smoker HPI HPI Chief Complaint: GERD Details: RITA LEWIS, is a 54 M who presents to the office today for establishment with [facility]. Over the past two weeks patient has been having nocturnal heartburn symptoms. This is not something he has had in the past. The first night he woke up with burning pain and was unable to breath. He notes he did have a lot of pizza and soda the night prior. He has been nervous since then and taking measures to avoid this like sleeping upright. He notices some reflux during the day. He has never had an EGD or been on PPI. Last colonoscopy was in 2022 with recommendation for repeat in 10 years. HE has had polyps in the past. ROS Const Constitutional: No fatigue, fever(s) or weight change ENT ENT: No difficulty swallowing Gastro GI: Positive for bloating, constipation, heartburn, excessive flatus and Blood in stool; No abdominal pain, belching, change in bowel habits, change in stool character, coffee ground emesis, cramping, diarrhea, difficulty swallowing, feeling full early, incontinent of stools, Vomiting blood/hematemesis, loose stools, Black,tarry stools, nausea/dyspepsia, pain with swallowing, vomiting or other Musc Musculoskeletal: Positive for back pain and muscle cramps; No joint pain Skin Skin: No yellowing of the eye or itchy eyes Psych Psychiatric: No anxiety and No depression Endo Endocrine: No fatigue or weight change Aller/Imm Allergy/Immunologic: No itchy eyes Sukhdeep/Lymp Hematologic/Lymphatic: No easy bleeding or easy bruising Exam Const General: cooperative, healthy appearing and comfortable Chest Chest palpation inspection: normal inspection of the chest Resp Effort Inspection: normal respiratory effort Cardio Rate: regular rate Rhythm: regular rhythm GI Inspection: normal to inspection Auscultation: normal bowel sounds Palpation: soft, no hepatosplenomegaly, no guarding and nontender Assessment and Plan Assessment and Plan (1) Gastroesophageal reflux disease: Plan: Rtia is a 54 yo male pt with reflux symptoms x2 weeks. Pt notes waking up during the night with inability to breath and burning pain in his esophagus. He now feels some GERD throughout the day. He has never had an EGD. Pt likely has GERD with possible laryngospasm. I have started him on omeprazole 40 mg daily. We may add famotidine if needed. He was scheduled for EGD however if his symptoms resolve he may cancel. He was advised to avoid fatty foods, caffeine, carbonation and chocolate. He will continue to sleep with the head of his bed elevated. -Start omeprazole 40 mg daily -EGD if symptoms do not resolve -Consider famotidine in the evening -f/u after pecodure or sooner if needed Medications: New omeprazole 40 mg PO QDAY 30 caps 1RF Coding Level of Care Code Off vis,new,level 4 Diagnoses Gastroesophageal reflux disease K21.9 12/05/24 1658 Date Idalmis Luoigner Signature: Date (if applicable) CC: Normal [facility] CNOVon 09-26-2024 CNOV Office Visit (DERBMN ) -- RITA LEWIS ([id number]) 1970 M Date Time Provider Department 09/26/24 3:45 PM MANI WELCH During your visit today, we recorded the following information about you: Mani Welch MD 09/26/2024 3:45 PM Signed Est Patient PROCEDURE: BOTOX VISIT HYPERHIDROSIS Auth expiration: 10/17/2024 Rita is a 54 year old male that returns today for a botox injection to his bilateral palms. Previous injection was 5 months ago. Hyperhidrosis Disease Severity Scale: Score 3 (Severe): My sweating is barely tolerable and frequently interferes with my daily activities. There have been no reported changes in his health since last visit. PATIENT would like same dose as last time as that greatly improved his QOL SURGEON Dr. Mani Welch UNIVERSAL PROTOCOL / SAFETY CHECKLIST Procedure to be performed: Botox injection Sign in Communication: Completed Time Out: Team Confirms the Correct Patient, Correct Procedure, Correct Site, Correct Position (if applicable). Time: 314 Sign Out Discussion: Completed TODAY'S PROCEDURE: 200 units of Botox were reconstituted with 4 cc of normal saline. The Botox used was from Lot Number [id number], [id number] with an expiration date of 09/2026, 04/2026 The area was cleaned and prepped in a sterile fashion. SITE 1.) 75 units of Botox injected intradermally into the right palm SITE 2.) 75 units of Botox injected intradermally into the left palm PLAN: 1. Patient will return in 3-6 mos for future injections. 2. Post-operative instructions were reviewed with patient in written and verbal form. The documentation for this note was completed by Mandie Jackson RN acting as scribe for Mani Welch MD. September 26, 2024 3:11 PM. I agree with the Chief Complaint, ROS, and Past Histories independently gathered by the clinical behaviour support teacher and the remaining scribed note accurately describes my personal service to the patient. 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 Start every other night and advance as tolerated. - aluminum chloride (DRYSOL) 20 % external solution Apply to dry underarms at bedtime and wash off the next morning. Do not apply to wounds or broken, irritated, or recently shaved skin - Tadalafil (CIALIS) 5 mg tablet Take 1 tablet by mouth as needed. Take prior to sexual activity. - potassium chloride (K-TAB) 10 mEq tablet Take 1 tablet by mouth daily with breakfast. - aluminum chloride (DRYSOL) 20 % external solution Apply 1 application to affected area daily at bedtime. Decrease to 1-2 times weekly once sweating improves Facility-Administered Medications as of 09/26/2024 - onabotulinum toxin type A 200 Units injection (BOTOX) (Completed) Problem List As Of Date 09/26/2024 Noted Resolved Mixed hyperlipidemia [E78.2] 07/03/2016 Special screening for malignant neoplasms, colo*01/14/2023 Small bowel obstruction (HCC) [K56.609] 01/15/2023 Nausea AND vomiting [R11.2] 01/15/2023 SBO (small bowel obstruction) (HCC) [K56.609] 01/15/2023 Prescriptions ordered this encounter Disp Refills Start End ONABOTULINUMTOXINA 100 UNIT SOLUTION* 09/26/2024 09/26/2024 Route: INTRADERM. Disposition: Return in about 26 weeks (around 03/27/2025) for Botox hyperhidrosis @ 3:45, 30 min slot - slot held. Follow-up and Disposition History for Encounter Date Provider Department Center 09/26/2024 [id number] WELCH Encounter Status:Closed by MANI WELCH on 09/26/24 [facility] 06-12-2024 CNPN Telephone (FAMPWS) -- RITA LEWIS ([id number]) 1970 M Date Time Provider Department 06/12[facility]24 [facility] During your visit today, we recorded the following information about you: Gunnar Lopez PA-C 06/12/2024 8:08 AM Signed Please let patient know that his cholesterol remain elevated, total 257 (<200) and LDL 191 (ideally < 120). His A1C was 5.7, just into the pre-diabetic range (fasting glucose was 112, (<100)). The rest of his labs looked good including PSA and thyroid lab. He can try the diet modifications we discussed-low cholesterol, low fat, limiting sugary drinks/sweets. Trial of Red Yeast Rice extract. We can repeat in 3 months, if remain elevated, would advise considering starting a cholesterol lowering medication. Gunnar Lopez PA-C 06/12/2024 Tierra Amos LPN 06/12/2024 1:01 PM Signed left message for patient to call the office back and speak with triage nurse. ALEXANDRA Modi Laurie Lynn, LPN 06/12/2024 2:15 PM Signed Spoke with pt and information listed below given. Pt verbalizes understanding. Michael Mehta LPN Allergies As of Date: 06/12/2024 Noted Allergy Reaction SEASONAL ALLERGIES 03/19/2019 16 - Unknown Date Reviewed: 06/05/2024 Reviewed by: Tierra Amos LPN - Fully Assessed Reason for Visit: Results [95] Prescriptions as of 06/12/2024 - tretinoin 0.05 % gel Apply a pea-sized amount to whole face at night as tolerated. Start every other night and advance as tolerated. - aluminum chloride (DRYSOL) 20 % external solution Apply to dry underarms at bedtime and wash off the next morning. Do not apply to wounds or broken, irritated, or recently shaved skin - Tadalafil (CIALIS) 5 mg tablet Take 1 tablet by mouth as needed. Take prior to sexual activity. - potassium chloride (K-TAB) 10 mEq tablet Take 1 tablet by mouth daily with breakfast. - aluminum chloride (DRYSOL) 20 % external solution Apply 1 application to affected area daily at bedtime. Decrease to 1-2 times weekly once sweating improves Problem List As Of Date 06/12/2024 Noted Resolved Mixed hyperlipidemia [E78.2] 07/03/2016 Special screening for malignant neoplasms, colo*01/14/2023 Small bowel obstruction (HCC) [K56.609] 01/15/2023 Nausea AND vomiting [R11.2] 01/15/2023 SBO (small bowel obstruction) (HCC) [K56.609] 01/15/2023 Encounter Status:Closed by MICHAEL MEHTA on 06/12/24 Normal [facility] CBC W Auto Differential pane l (Bld)on 06-05-2024 Basophils (Bld) [#/Vol] 0.04 10*3/uL Normal <0.11 [facility] Comment on above: Order Comment: Speci men Type: BLOOD SPECIMEN [facility] Address: [address] [place] [address] Performed By: #### 3 016-3, 00366-6, 84724-3 #### [facility] CLIA [id number] [address] [place] [address] [place] [address] [place] Basophils/100 WBC (Bld) 0.8 % Normal [facility] Comment on above: Order Comment: Speci men Type: BLOOD SPECIMEN [facility] Address: [address] [place] [address] Performed By: #### 3 016-3, 02406-6, #### [facility] CLIA [id number] [address] [place] [address] [place] Differential cell count method Nom (Bld) Auto Normal [facility] Comment on above: Order Comment: Speci men Type: BLOOD SPECIMEN [facility] Address: [address] [place] [address] Performed By: #### 3 016-3, 85487-4, #### [facility] CLIA [id number] [address] [place] [address] [place] Eosinophils (Bld) [#/Vol] 0.13 10*3/uL Normal <0.46 [facility] Comment on above: Order Comment: Speci men Type: BLOOD SPECIMEN [facility] Address: [address] [place] [address] Performed By: #### 3 016-3, 85455-8, #### [facility] CLIA [id number] [address] [place] [address] [place] Eosinophils/100 WBC (Bld) 2.5 % Normal [facility] Comment on above: Order Comment: Speci men Type: BLOOD SPECIMEN [facility] Address: [address] [place] [address] Performed By: #### 3 016-3, 79512-2, #### [facility] CLIA [id number] [address] [place] [address] [place] Erythrocyte distribution width (RBC) [Ratio] 13.3 % Normal 11.5-15.0 [facility] Comment on above: Order Comment: Speci men Type: BLOOD SPECIMEN [facility] Address: [address] [place] [address] Performed By: #### 3 016-3, 12733-3, 27712-6 #### [facility] CLIA [id number] [address] [place] [address] [place] Hematocrit (Bld) [Volume fraction] 42.3 % Normal 39.0-51.0 [facility] Comment on above: Order Comment: Speci men Type: BLOOD SPECIMEN [facility] Address: [address] [place] [address] Performed By: #### 3 016-3, 29137-8, 17516-8 #### [facility] CLIA [id number] [address] [place] [address] [place] Hemoglobin (Bld) [Mass/Vol] 14.5 g/dL Normal 13.0-17.0 [facility] Comment on above: Order Comment: Speci men Type: BLOOD SPECIMEN [facility] Address: [address] [place] [address] Performed By: #### 3 016-3, 90203-1, #### [facility] CLIA [id number] [address] [place] [address] [place] Immature granulocytes (Bld) [#/Vol] 10*3/uL Normal <0.10 [facility] Comment on above: Order Comment: Speci men Type: BLOOD SPECIMEN [facility] Address: [address] [place] [address] Performed By: #### 3 016-3, 83899-7, 82777-8 #### [facility] CLIA [id number] [address] [place] [address] [place] Immature granulocytes/100 WBC (Bld) 0.4 % Normal [facility] Comment on above: Order Comment: Speci men Type: BLOOD SPECIMEN [facility] Address: [address] [place] [address] Performed By: #### 3 016-3, 24670-3, 84290-1 #### [facility] CLIA [id number] [address] [place] [address] [place] Lymphocytes (Bld) [#/Vol] 2.12 10*3/uL Normal 1.00-4.00 [facility] Comment on above: Order Comment: Speci men Type: BLOOD SPECIMEN [facility] Address: [address] [place] [address] Performed By: #### 3 016-3, 70250-0, 78039-7 #### [facility] CLIA [id number] [address] [place] [address] [place] Lymphocytes/100 WBC (Bld) 41.6 % Normal [facility] Comment on above: Order Comment: Speci men Type: BLOOD SPECIMEN [facility] Address: [address] [place] [address] Performed By: #### 3 016-3, 24786-1, 74422-2 #### [facility] CLIA [id number] [address] [place] [address] [place] MCH (RBC) [Entitic mass] 29.2 pg Normal 26.0-34.0 [facility] Comment on above: Order Comment: Speci men Type: BLOOD SPECIMEN [facility] Address: [address] [place] [address] Performed By: #### 3 016-3, 42309-3, 26758-6 #### [facility] CLIA [id number] [address] [place] [address] [place] MCHC (RBC) [Mass/Vol] 34.3 g/dL Normal 30.5-36.0 [facility] Comment on above: Order Comment: Speci men Type: BLOOD SPECIMEN [facility] Address: [address] [place] [address] Performed By: #### 3 016-3, 55644-2, 05284-2 #### [facility] CLIA [id number] [address] [place] [address] [place] MCV (RBC) [Entitic vol] 85.1 fL Normal 80.0-100.0 [facility] Comment on above: Order Comment: Speci men Type: BLOOD SPECIMEN [facility] Address: [address] [place] [address] Performed By: #### 3 016-3, 93652-7, 77966-7 #### [facility] CLIA [id number] [address] [place] [address] [place] Monocytes (Bld) [#/Vol] 0.32 10*3/uL Normal <0.87 [facility] Comment on above: Order Comment: Speci men Type: BLOOD SPECIMEN [facility] Address: [address] [place] [address] Performed By: #### 3 016-3, 30181-6, #### [facility] CLIA [id number] [address] [place] [address] [place] Monocytes/100 WBC (Bld) 6.3 % Normal [facility] Comment on above: Order Comment: Speci men Type: BLOOD SPECIMEN [facility] Address: [address] [place] [address] Performed By: #### 3 016-3, 94617-8, 61741-5 #### [facility] CLIA [id number] [address] [place] [address] [place] Neutrophils (Bld) [#/Vol] 2.47 10*3/uL Normal 1.45-7.50 [facility] Comment on above: Order Comment: Speci men Type: BLOOD SPECIMEN [facility] Address: [address] [place] [address] Performed By: #### 3 016-3, 61784-8, 02697-1 #### [facility] [facility] CLIA [id number] [address] [place] [address] [place] Neutrophils/100 WBC (Bld) 48.4 % Normal [facility] Comment on above: Order Comment: Speci men Type: BLOOD SPECIMEN [facility] Address: [address] [place] [address] Performed By: #### 3 016-3, 77350-6, #### [facility] CLIA [id number] [address] [place] [address] [place] Nucleated RBC (Bld) [#/Vol] 10*3/uL Normal <0.01 [facility] Comment on above: Order Comment: Speci men Type: BLOOD SPECIMEN [facility] Address: [address] [place] [address] Performed By: #### 3 016-3, 83892-6, #### [facility] CLIA [id number] [address] [place] [address] [place] Nucleated RBC/100 WBC (Bld) [Ratio] 0.0 /100 WBC Normal [facility] Comment on above: Order Comment: Speci men Type: BLOOD SPECIMEN [facility] Address: [address] [place] [address] Performed By: #### 3 016-3, 28057-5, #### [facility] CLIA [id number] [address] [place] [address] [place] Platelet mean volume (Bld) [Entitic vol] 10.4 fL Normal 9.0-12.7 [facility] Comment on above: Order Comment: Speci men Type: BLOOD SPECIMEN [facility] Address: [address] [place] [address] Performed By: #### 3 016-3, 83273-0, #### [facility] CLIA [id number] [address] [place] [address] [place] Platelets (Bld) [#/Vol] 258 10*3/uL Normal 150-400 [facility] Comment on above: Order Comment: Speci men Type: BLOOD SPECIMEN [facility] Address: [address] [place] [address] Performed By: #### 3 016-3, 00532-6, 03510-2 #### [facility] CLIA [id number] [address] [place] [address] [place] RBC (Bld) [#/Vol] 4.97 10*6/uL Normal 4.20-6.00 [facility] Comment on above: Order Comment: Speci men Type: BLOOD SPECIMEN [facility] Address: [address] [place] [address] Performed By: #### 3 016-3, 00376-3, 08364-8 #### [facility] CLIA [id number] [address] [place] [address] [place] WBC (Bld) [#/Vol] 5.10 10*3/uL Normal 3.70-11.00 [facility] Comment on above: Order Comment: Speci men Type: BLOOD SPECIMEN [facility] Address: [address] [place] [address] Performed By: #### 3 016-3, 42197-9, 23441-3 #### [facility] CLIA [id number] [address] [place] [address] [place] CNOVon 06-05-2024 [facility] -- RITA LEWIS ([id number]) 1970 M Date Time Provider Department 06/05/24 8:00 AM [facility] During your visit today, we recorded the following information about you: Temperature Pulse Respiration Blood pressure 97.6 degrees 64/minute 12/minute 130/64 Weight Height 91 kg 1.702 m Gunnar Lopez PA-C 06/05/2024 8:50 AM Signed SUBJECTIVE: This is a 53 year old that is here today for Complaint(s) of cough x 2 weeks, but overall cough is significantly improving. 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 Denies fever/chills, SOB, wheezing, chest pain, night sweats, hemoptysis, weight loss. Normal appetite and energy level. Overall feels like he is improving. Mr. Lewis was last seen 6 months ago. Family History of prostate CA-maternal Uncle. Last PSA checked in 2022, WNL. No personal history of HTN, DM. Not some muscle aches at time, intermittent and not consistent. He is running regularly, admits to not stretching. No leg swelling. Hyperlipidemia. Has never been on any medications previously. Admits that he consumes a lot of red meat, cheese, sugary drinks/soda. He does run almost daily. + FH hyperlipidemia denies chest pain, SOB, PATHAK, His most recent lipid panels are: Cholesterol, Total (mg/dL) Date Value 11/09/2023 258 11/17/2022 284 10/31/2020 268 07/03/2016 242 HDL Cholesterol (mg/dL) Date Value 11/09/2023 36 11/17/2022 40 10/31/2020 35 07/03/2016 37 LDL Cholesterol (mg/dL) Date Value 11/09/2023 198 11/17/2022 222 10/31/2020 204 07/03/2016 185 Triglyceride (mg/dL) Date Value 11/09/2023 119 11/17/2022 109 10/31/2020 143 07/03/2016 98 Health Maintenance Declines immunizations Up to date on colonoscopy. Past Medical, Surgical, Family and Social Histories reviewed and [facility] today [facility] Current Medications and allergies reviewed. PAST MEDICAL HISTORY Diagnosis Date Elevated cholesterol History of colonic polyps PAST SURGICAL HISTORY Procedure Laterality Date ARTHRO KNEE MEDIAL REL Right COLONOSCOPY FLX DX W/COLLJ SPEC WHEN PFRMD 08/2012 Colonoscopy COLONOSCOPY FLX DX W/COLLJ SPEC WHEN PFRMD 07/29/2017 repeat in 5 years COLONOSCOPY GEN ANES 2010 ACTIVE PROBLEM LIST Mixed Hyperlipidemia Special Screening for Malignant Neoplasms, Colon Small Bowel Obstruction (Hcc) Nausea AND Vomiting Sbo (Small Bowel Obstruction) (Hcc) ALLERGIES: Seasonal Allergies Current Outpatient Medications Medication Sig tretinoin 0.05 % gel Apply a pea-sized amount to whole face at night as tolerated. Start every other night and advance as tolerated. aluminum chloride (DRYSOL) 20 % external solution Apply to dry underarms at bedtime and wash off the next morning. Do not apply to wounds or broken, irritated, or recently shaved skin Tadalafil (CIALIS) 5 mg tablet Take 1 tablet by mouth as needed. Take prior to sexual activity. potassium chloride (K-TAB) 10 mEq tablet Take 1 tablet by mouth daily with breakfast. aluminum chloride (DRYSOL) 20 % external solution Apply 1 application to affected area daily at bedtime. Decrease to 1-2 times weekly once sweating improves No current facility-administered medications for this visit. FAMILY HISTORY Problem Relation Age of Onset Hypertension Mother other (cholesterol) Mother Stroke Father Diabetes Brother Multiple Sclerosis Brother PHYSICAL EXAM: BP 130/64 (BP Site: Left Arm, BP Position: Sitting, BP Cuff Size: Large Adult) Pulse 64 Temp 36.4 ?C (97.6 ?F) Resp 12 Ht 170.2 cm (5' 7) Wt 91 kg (200 lb 9.9 oz) SpO2 97% BMI 31.42 kg/m? BMI 31.42 kg/(m2) General appearance: Alert, cooperative, pleasant, in no acute distress Head: Normocephalic, atraumatic Eyes: conjunctiva/corneas normal, PERRL Oropharynx: moist without lesions, teeth in good repair Neck: supple and no JVD Heart: regular rate and rhythm, without murmur Lungs: clear to auscultation, without rales or wheeze, good air exchange Abdomen:soft, nondistended, nontender, no hepatosplenomegaly or masses ASSESSMENT/PLAN: 1. Mixed hyperlipidemia - ICD9: 272.2, ICD10: E78.2 (primary diagnosis) - Uncontrolled - Counseled on healthy diet and regular exercise We discussed plan for attempt with lifestyle modifications for 3 months if cholesterol elevated on today's labs. Add fish oil capsules and red yeast rice extract. If repeat labs in 3 months remain elevated, will consider a cholesterol lowering medication. - Discussed need for and benefit of weight loss. BMI 31.42 kg/(m2) - Follow up in 6 months, sooner should any other issues arise. - LIPID PANEL BASIC - THYROID STIMULATING HORMONE 2. Elevated glucose - ICD9: 790 (more content not included)... Normal [facility] Comprehensive metabolic 2000 panelon 06-05-2024 Albumin [Mass/Vol] 4.3 g/dL Normal 3.9-4.9 [facility] Comment on above: Order Comment: Speci men Type: BLOOD SPECIMEN [facility] Address: [address] [place] [address] Performed By: #### 3 016-3, 85549-7, #### [facility] CLIA [id number] [address] [place] [address] [place] ALP [Catalytic activity/Vol] 76 U/L Normal 38-113 [facility] Comment on above: Order Comment: Speci men Type: BLOOD SPECIMEN [facility] Address: [address] [place] [address] Performed By: #### 3 016-3, 81352-7, #### [facility] CLIA [id number] [address] [place] [address] [place] ALT [Catalytic activity/Vol] 29 U/L Normal 10-54 [facility] Comment on above: Order Comment: Speci men Type: BLOOD SPECIMEN [facility] Address: [address] [place] [address] Performed By: #### 3 016-3, 28451-8, #### [facility] CLIA [id number] [address] [place] [address] [place] Anion gap [Moles/Vol] 8 mmol/L Normal 8-15 [facility] Comment on above: Order Comment: Speci men Type: BLOOD SPECIMEN [facility] Address: [address] [place] [address] Performed By: #### 3 016-3, 23179-8, 68214-2 #### [facility] CLIA [id number] [address] [place] [address] [place] AST [Catalytic activity/Vol] 25 U/L Normal 14-40 [facility] Comment on above: Order Comment: Speci men Type: BLOOD SPECIMEN [facility] Address: [address] [place] [address] Performed By: #### 3 016-3, 16020-2, 07138-2 #### [facility] CLIA [id number] [address] [place] [address] [place] Bilirubin [Mass/Vol] 0.2 mg/dL Normal 0.2-1.3 [facility] Comment on above: Order Comment: Speci men Type: BLOOD SPECIMEN [facility] Address: [address] [place] [address] Performed By: #### 3 016-3, 38307-1, 56732-9 #### [facility] CLIA [id number] [address] [place] [address] [place] Calcium [Mass/Vol] 9.6 mg/dL Normal 8.5-10.2 [facility] Comment on above: Order Comment: Speci men Type: BLOOD SPECIMEN [facility] Address: [address] [place] [address] Performed By: #### 3 016-3, 99777-3, 15232-6 #### [facility] CLIA [id number] [address] [place] [address] [place] Chloride [Moles/Vol] 105 mmol/L Normal 98-107 [facility] Comment on above: Order Comment: Speci men Type: BLOOD SPECIMEN [facility] Address: [address] [place] [address] Performed By: #### 3 016-3, 37736-4, 05311-6 #### [facility] CLIA [id number] [address] [place] [address] [place] CO2 [Moles/Vol] 25 mmol/L Normal 22-30 [facility] Comment on above: Order Comment: Speci men Type: BLOOD SPECIMEN [facility] Address: [address] [place] [address] Performed By: #### 3 016-3, 04400-2, 71450-1 #### [facility] CLIA [id number] [address] [place] [address] [place] Creatinine [Mass/Vol] 0.92 mg/dL Normal 0.73-1.22 [facility] Comment on above: Order Comment: Speci men Type: BLOOD SPECIMEN [facility] Address: [address] [place] [address] Performed By: #### 3 016-3, 36070-1, #### [facility] CLIA [id number] [address] [place] [address] [place] Creatinine and Glomerular filtration rate.predicted panel (S/P/Bld) 101 mL/min/1.73m??? Normal >=60 [facility] Comment on above: Order Comment: Speci men Type: BLOOD SPECIMEN [facility] Address: [address] [place] [address] Result Comment: Barbara mated Glomerular Filtration Rate (eGFR) is calculated using the 2020 CKD-EPI creatinine equation. This equation utilizes serum creatinine, sex, and age as parameters. The creatinine assay has traceable calibration to isotope dilution-mass spectrometry. Refer to KDIGO guidelines for clinical interpretation. In patients with unstable renal function, e.g. those with acute kidney injury, the eGFR may not accurately reflect actual GFR. Performed By: #### 3 016-3, 67611-1, 53742-7 #### [facility] CLIA [id number] [address] [place] [address] [place] Glucose [Mass/Vol] 112 mg/dL High 74-99 [facility] Comment on above: Order Comment: Speci men Type: BLOOD SPECIMEN [facility] Address: [address] [place] [address] Result Comment: The [place] Diabetes Association (ADA) provides guidance for cutoff values for fasting glucose and random glucose. The ADA defines fasting as no caloric intake for at least 8 hours. Fasting plasma glucose results between 100 to 125 mg/dL indicate increased risk for diabetes (prediabetes). Fasting plasma glucose results greater than or equal to 126 mg/dL meet the criteria for diagnosis of diabetes. In the absence of unequivocal hyperglycemia, results should be confirmed by repeat testing. In a patient with classic symptoms of hyperglycemia or hyperglycemic crisis, random plasma glucose results greater than or equal to 200 mg/dL meet the criteria for diagnosis of diabetes. Reference: Standards of Medical Care in Diabetes 2016, [place] [employer] Association. Diabetes Care. 2016.39(Suppl 1). Performed By: #### 3 016-3, 60613-7, 22087-7 #### [facility] CLIA [id number] [address] [place] [address] [place] Potassium [Moles/Vol] 4.2 mmol/L Normal 3.7-5.1 [facility] Comment on above: Order Comment: Wilmari men Type: BLOOD SPECIMEN [facility] Address: [address] [place] [address] Performed By: #### 3 016-3, 61491-9, 52762-6 #### [facility] CLIA [id number] [address] [place] [address] [place] Protein [Mass/Vol] 7.4 g/dL Normal 6.3-8.0 [facility] Comment on above: Order Comment: Speci men Type: BLOOD SPECIMEN [facility] Address: [address] [place] [address] Performed By: #### 3 016-3, 40999-9, 26950-9 #### [facility] CLIA [id number] [address] [place] [address] [place] Sodium [Moles/Vol] 138 mmol/L Normal 136-144 [facility] Comment on above: Order Comment: Speci men Type: BLOOD SPECIMEN [facility] Address: [address] [place] [address] Performed By: #### 3 016-3, 65522-9, 25227-7 #### [facility] CLIA [id number] [address] [place] [address] [place] Urea nitrogen [Mass/Vol] 11 mg/dL Normal 9-24 [facility] Comment on above: Order Comment: Wilmari men Type: BLOOD SPECIMEN [facility] Address: [address] [place] [address] Performed By: #### 3 016-3, 19482-0, 70754-2 #### [facility] CLIA [id number] [address] [place] [address] [place] HbA1c (Bld)on 06-05-2024 Average glucose Estimated from glycated hemoglobin (Bld) [Mass/Vol] 117 mg/dL Normal [facility] Comment on above: Order Comment: Wilmari men Type: BLOOD SPECIMEN [facility] Address: [address] [place] [address] Result Comment: eAG: (Estimated average glucose) is a calculated value from HgbA1c and is assisted sales representative of the average blood glucose level in the last 2-3 month period. Performed By: #### 5 5454-3 #### [facility] CLIA [id number] [address] [place] [address] [place] HbA1c (Bld) [Mass fraction] 5.7 % High 4.3-5.6 [facility] Comment on above: Order Comment: Wilmari men Type: BLOOD SPECIMEN [facility] Address: [address] [place] [address] Result Comment: [place] Diabetes Association guidelines indicate that patients with HgbA1c in the range 5.7-6.4% are at increased risk for development of diabetes, and intervention by lifestyle modification may be beneficial. HgbA1c greater or equal to 6.5% is considered diagnostic of diabetes. Performed By: #### 5 5454-3 #### [facility] CLIA [id number] [address] [place] [address] [place] Lipid 1996 panelon 4 Cholesterol [Mass/Vol] 257 mg/dL High <200 [facility] Comment on above: Order Comment: Ca morales Type: BLOOD SPECIMEN [facility] Address: [address] [place] [address] Result Comment: <200 mg/dL, Desirable 200-239 mg/dL, Borderline high >239 mg/dL, High Performed By: #### 3 016-3, 46266-7, 95852-1 #### [facility] CLIA [id number] [address] [place] [address] [place] Cholesterol in HDL [Mass/Vol] 35 mg/dL Low >39 [facility] Comment on above: Order Comment: Ca morales Type: BLOOD SPECIMEN [facility] Address: [address] [place] [address] Result Comment: 40-5 9 mg/dL, Acceptable >59 mg/dL, High: Negative risk factor for coronary heart disease <40 mg/dL, Low: Positive risk factor for coronary heart disease Performed By: #### 3 016-3, 45884-0, 45653-1 #### [facility] CLIA [id number] [address] [place] [address] [place] Cholesterol in LDL [Mass/Vol] 191 mg/dL High <100 [facility] Comment on above: Order Comment: Ca morales Type: BLOOD SPECIMEN [facility] Address: [address] [place] [address] Result Comment: <100 mg/dL, Optimal 100-129 mg/dL, Near optimal/above optimal 130-159 mg/dL, Borderline high 160-189 mg/dL, High >189 mg/dL, Very high Secondary prevention optimal LDL Cholesterol levels are recommended to be < 70 mg/dL Performed By: #### 3 016-3, 15406-3, 64477-3 #### [facility] CLIA [id number] [address] [place] [address] [place] Cholesterol in LDL/Cholesterol in HDL [Mass ratio] 5.46 {ratio} High <2.54 [facility] Comment on above: Order Comment: Speci men Type: BLOOD SPECIMEN [facility] Address: [address] [place] [address] Result Comment: Refe rence: 1. National Cholesterol Education Program ATP III Guideline At-A-Glance Quick Desk Reference: National Heart, Lung, and Blood [place]. National Institutes of Health. 2001: NIH Publication No. 01-3305. 2. An International Atherosclerosis Society position paper: global recommendations for the management of dyslipidemia: executive summary, Atherosclerosis. 2014: 232(2):410-413. Performed By: #### 3 016-3, 90966-3, 04785-5 #### [facility] CLIA [id number] [address] [place] [address] [place] Cholesterol in VLDL [Mass/Vol] 31 mg/dL High <30 [facility] Comment on above: Order Comment: Ca morales Type: BLOOD SPECIMEN [facility] Address: [address] [place] [address] Performed By: #### 3 016-3, 67600-5, #### [facility] CLIA [id number] [address] [place] [address] [place] Cholesterol non HDL [Mass/Vol] 222 mg/dL High <130 [facility] Comment on above: Order Comment: Ca men Type: BLOOD SPECIMEN [facility] Address: [address] [place] [address] Result Comment: <130 mg/dL, Optimal 130-159 mg/dL, Near optimal/above optimal 160-189 mg/dL, Borderline high 190-219 mg/dL, High >219 mg/dL, Very high Secondary prevention optimal non HDL Cholesterol levels are recommended to be <100 mg/dL Performed By: #### 3 016-3, 14283-0, 15577-3 #### [facility] CLIA [id number] [address] [place] [address] [place] Cholesterol.total/Ch olesterol in HDL [Mass ratio] 7.34 {ratio} High <5.10 [facility] Comment on above: Order Comment: Speci men Type: BLOOD SPECIMEN [facility] Address: [address] [place] [address] Performed By: #### 3 016-3, 74680-6, #### [facility] CLIA [id number] [address] [place] [address] [place] FASTING TIME 12 hrs Normal [facility] Comment on above: Order Comment: Speci men Type: BLOOD SPECIMEN [facility] Address: [address] [place] [address] Performed By: #### 3 016-3, 55139-8, #### [facility] CLIA [id number] [address] [place] [address] [place] Triglyceride [Mass/Vol] 155 mg/dL High <150 [facility] Comment on above: Order Comment: Speci men Type: BLOOD SPECIMEN [facility] Address: [address] [place] [address] Result Comment: <150 mg/dL, Normal 150-199 mg/dL, Borderline high 200-499 mg/dL, High >499 mg/dL, Very high Performed By: #### 3 016-3, 88455-5, #### [facility] CLIA [id number] [address] [place] [address] [place] PSA/PROSTATE SPECIFIC ANTIGE N SCREENINGon 06-05-2024 Prostate specific Ag [Mass/Vol] 1.03 ng/mL Normal <2.60 [facility] Comment on above: Order Comment: Speci men Type: BLOOD SPECIMEN [facility] Address: [address] [place] [address] Result Comment: Tota l PSA test methodology used is the Electrochemiluminescence Immunoassay by [employer]. Total PSA values by differing methodologies cannot be interchanged. Performed By: #### 3 016-3, 83956-4, 24199-5 #### [facility] CLIA [id number] [address] [place] [address] [place] TSH SerPl-aCncon 06-05-2024 TSH Qn 1.430 m[IU]/L Normal 0.270-4.200 [facility] Comment on above: Order Comment: Speci men Type: BLOOD SPECIMEN [facility] Address: [address] [place] [address] Performed By: #### 3 016-3, 45388-3, 86549-6 #### [facility] CLIA [id number] [address] [place] [address] [place] CNOVon 04-11-2024 CNOV Office Visit ([facility] ) -- RITA LEWIS ([id number]) 1970 M Date Time Provider Department 04/11/24 2:00 PM MANI WELCH During your visit today, we recorded the following information about you: Mani Welch MD 04/11/2024 3:28 PM Signed PROCEDURE: BOTOX VISIT HYPERHIDROSIS Rita is a 53 year old male that returns today for a botox injection to his bilateral palms. Previous injection was 6 months ago. -retin-a and drysol refills needed -noticing improvement even when between treatments and prior wore off Hyperhidrosis Disease Severity Scale: Score 3 (Severe): My sweating is barely tolerable and frequently interferes with my daily activities. There have been no reported changes in his health since last visit. PATIENT would like same dose as last time as that greatly improved his QOL SURGEON Dr. Mani Welch UNIVERSAL PROTOCOL / SAFETY CHECKLIST Procedure to be performed: Botox injection Sign in Communication: Completed Time Out: Team Confirms the Correct Patient, Correct Procedure, Correct Site, Correct Position (if applicable). Time: 1500 Sign Out Discussion: Completed TODAY'S PROCEDURE: 200 units of Botox were reconstituted with 4 cc of normal saline. The Botox used was from Lot Number [id number], with an expiration date of 06/2026 The area was cleaned and prepped in a sterile fashion. SITE 1.) 75 units of Botox injected intradermally into the right palm SITE 2.) 75 units of Botox injected intradermally into the left palm Patient requested lower dose be injected today PLAN: 1. Patient will return in 3-6 mos for future injections. 2. Post-operative instructions were reviewed with patient in written and verbal form. I agree with the Chief Complaint, ROS, and Past Histories independently gathered by the clinical behaviour support teacher and the remaining scribed note accurately describes my personal service to the patient. I agree with the Chief Complaint, ROS, and Past Histories independently gathered by the clinical behaviour support teacher and the remaining scribed note accurately describes my personal service to the patient. Marian Mejia Dr[address] JOSE MANUEL 04/11/2024 2:13 PM Signed Post-Operative Guidelines for Neurotoxin Injections Post-Operative Instructions Botox and Dysport are both Neurotoxins. The Neurotoxin that you received today is _. Please follow these guidelines after a Neurotoxin injection. Care for Injection Sites: 1. Avoid massaging or rubbing the treated area for 24 hours. 2. No strenuous activity or bending over for the first 24 hours. 3. Move your facial muscles approximately 10 times an hour until bedtime. 4. Do not lie flat for at least 4-5 hours. 5. Neurotoxins should start to work within one week (5-7 days before you notice a difference). Peak results should be seen in two weeks. 6. Avoid Aspirin or other anti-inflammatory medications for at least 48 hours. 7. Some small red spots may be visible on the skin after treatment, as well as minor bruising. Bruising normally resolves within a couple of days to a couple of weeks. Swelling may last 1-2 days. 8. You may apply cosmetics, moisturizers, or lotion but do not do anything that causes pressure or discomfort. For any questions or concerns, please call the office at [phone] and ask to speak to a nurse in Dermatology. 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 May start every other night and advance to nightly as tolerated.Disp: 45 gRfl: 2 aluminum chloride (DRYSOL) 20 % external solutionApply to dry underarms at bedtime and wash off the next morning. Do not apply to wounds or broken, irritated, or recently shaved skinDisp: 60 mLRfl: 3 onabotulinum toxin type A 200 Units injection (BOTOX)Disp: Rfl: Prescriptions as of 04/11/2024 - tretinoin (RETIN-A) 0.05 % cream Apply pea sized amount to full face nightly. May start every other night and advance to nightly as tolerated. - aluminum chloride (DRYSOL) 20 % external solution Apply to dry underarms at bedtime and wash off the next morning. Do not apply to wounds or broken, irritated, or recently shaved skin - Tadalafil (CIALIS) 5 mg tablet Take 1 tablet by mouth as needed. Take prior to sexual activity. - potassium chloride (K-TAB) 10 mEq tablet Take 1 tablet by mouth daily with breakfast. - aluminum chloride (DRYSOL) 20 % external solution Apply 1 application to affected area daily at bedtime. Decrease to 1-2 times w (more content not included)... Normal [facility] CBC panel Auto (Bld)on 11-09 Erythrocyte distribution width (RBC) [Ratio] 13.1 % 11.5 - 15.0 % [facility] Hematocrit (Bld) [Volume fraction] 42.3 % 39.0 - 51.0 % [facility] Hemoglobin (Bld) [Mass/Vol] 14.7 g/dL 13.0 - 17.0 g/dL [facility] Interpretation and review of laboratory results Normal [facility] MCH (RBC) [Entitic mass] 29.6 pg 26.0 - 34.0 pg [facility] MCHC (RBC) [Mass/Vol] 34.8 g/dL 30.5 - 36.0 g/dL [facility] MCV (RBC) [Entitic vol] 85.3 fL 80.0 - 100.0 fL [facility] Nucleated RBC (Bld) [#/Vol] NINF [facility] Platelet mean volume (Bld) [Entitic vol] 10.4 fL 9.0 - 12.7 fL [facility] Platelets (Bld) [#/Vol] 259 10*3/uL [facility] RBC (Bld) [#/Vol] 4.96 10*6/uL 4.20 - 6.0 0 m/uL [facility] WBC (Bld) [#/Vol] 5.10 10*3/uL [facility] Absolute lymphocyte countOrd ered By: Mamadou Herring on 10-14-2023 Lymphocytes Auto (Unsp spec) [#/Vol] 3.94 10*3/uL 0.83-4.[address] [facility] Automated lymphocyte count a s percentage of total leukocytesOrdered By: Mamadou Herring on 10-14-2023 Lymphocytes/100 WBC Auto (Unsp spec) 41.7 % 19-[address] [facility] Basophil percentageOrdered B y: Mamadou Herring on 10-14-2023 Basophils/100 WBC (Bld) 0.8 % 0-[address] [facility] Chloride [Moles/Vol] 105 mmol/L 98-107 [facility] Eosinophils/100 WBC (Bld) 2.2 % 0-[address] [facility] Glucose [Mass/Vol] 111 mg/dL 74-106 [facility] Comment on above: Fasting Glucose resu lt from 100 to 125 mg/dL suggests IMPAIRED HOMEOSTASIS per A.D.A. criteria. Hemoglobin (Bld) [Mass/Vol] 14.5 g/dL 13.0-16.[address] [facility] Monocytes/100 WBC (Bld) 7.5 % 0-[address] [facility] Neutrophils (Bld) [#/Vol] 4.5 10*3/uL 2.0-7.[address] [facility] Neutrophils/100 WBC (Bld) 47.6 % 47-[address] [facility] Potassium [Moles/Vol] 3.3 mmol/L 3.5-5.[address] [facility] Comment on above: Slight Hemolysis, Re sult may be falsely increased. Sodium [Moles/Vol] 137 mmol/L 136-145 [facility] WBC (Bld) [#/Vol] 9.4 10*3/uL 4.4-11.0 [facility] Determination of erythrocyte mean corpuscular volume (MCV)Ordered By: Mamadou Herring on 10-14-2023 MCV (RBC) [Entitic vol] 84.2 fL 80-[address] [facility] Erythrocyte distribution wid th ratioOrdered By: Mamadou Herring on 10-14-2023 Erythrocyte distribution width (RBC) [Ratio] 13.0 % 11.6-14.[address] [facility] Erythrocyte distribution wid th standard deviationOrdered By: Mamadou Herring on 10-14-2023 Erythrocyte distribution width (RBC) [Entitic vol] 39.6 fL 35.1-43.[address] [facility] Hematocrit Auto (Bld) [Volum e fraction]Ordered By: Mamadou Herring on 10-14-2023 Hematocrit (Bld) [Volume fraction] 41.6 % 40-[address] [facility] Immature granulocytes/100 WB C Auto (Bld)Ordered By: Mamadou Herring on 10-14-2023 Immature granulocytes/100 WBC (Bld) 0.200 % 0.0-0.[address] [facility] Comment on above: IG% - Immature Granu locytes (promyelocytes, myelocytes and metamyelocytes) > 1% indicates that a LEFT SHIFT is Present. Laboratory - Chemistry and C hemistry - challengeOrdered By: Mamadou Herring on 10-14-2023 CO2 [Moles/Vol] 27.0 mmol/L 21.0-32.[address] [facility] Magnesium [Mass/Vol] 2.2 mg/dL 1.6-2.6 [facility] Comment on above: Slight Hemolysis, Re sult may be falsely increased. Urea nitrogen/Creatinine [Mass ratio] 14.5 mg/mg 10-[address] [facility] Laboratory - Hematology and Cell countsOrdered By: Mamadou Herring on 10-14-2023 MCH (RBC) [Entitic mass] 29.4 pg 27.0-32.[address] [facility] MCHC (RBC) [Mass/Vol] 34.9 g/dL 32-[address] [facility] Nucleated RBC/100 WBC (Bld) [Ratio] 0 % 0-[address] [facility] Platelet mean volume (Bld) [Entitic vol] 9.9 fL 6.2-12.[address] [facility] Platelets (Bld) [#/Vol] 263 10*3/uL 150-[address] [facility] No Panel InformationOrdered By: Mamadou Herring on 10-14-2023 Estimated Creatinine Clearance Calc 75.85 ml/min [facility] Estimated GFR (MDRD) Amer 79 mL/min >[address] [facility] Comment on above: GFR Calc Estimated GFR (MDRD) Non-Af Amer 65 mL/min >[address] [facility] Comment on above: Non- GFR Calc RBC Auto (Bld) [#/Vol]Ordere d By: Mamadou Herring on 10-14-2023 RBC (Bld) [#/Vol] 4.94 10*6/uL 4.6-6.2 [facility] Serum or plasma calcium poppy urement (mass/volume)Ordered By: Mamadou Herring on 10-14-2023 Calcium [Mass/Vol] 9.6 mg/dL 8.5-10.1 [facility] Serum or plasma creatinine m easurement (mass/volume)Ordered By: Mamadou Herring on 10-14-2023 Creatinine [Mass/Vol] 1.24 mg/dL 0.70-1.[address] [facility] Comment on above: The validity of the calculated GFR & GFRAA in patients over 70 years has not been determined. Clinical correlation is essential. Serum or plasma urea nitroge n measurement (mass/volume)Ordered By: Mamadou Herring on 10-14-2023 Urea nitrogen [Mass/Vol] 18 mg/dL 01-[address] [facility] Thin prep Papanicolaou smear with manual screeningOrdered By: Mamadou Herring on 10-14-2023 Thin prep Papanicolaou smear with manual screening 5 -[address] [facility] CASE MANAGEMon 01-17-2023 CASE MANAGEM HNO ID: [id number] Author: Lillie Dailey RN Service: ? Author Type: Registered Nurse Type: Care Mgt Progress Note Filed: 01/17/2023 1:07 PM Note Text: CARE MANAGEMENT DISCHARGE NOTE SERVICE DATE: January 17, 2023 SERVICE TIME: 1:02 PM Discharge Order written for today. Discharge: Home. JOSE MANUEL POTTS met with patient at bedside to discuss discharge plan. Patient confirms he is agreeable with discharge home today. He states his spouse will transport and he confirms his discharge pharmacy [facility] the [facility] in [place]. JOSE MANUEL POTTS updated Nurse: Nicolette Howard RN on discharge plan. Admission Date: 01/15/2023 LOS: 2 days Discharge Arrangement Discharge Arrangement: Home with Self Care Caregiver Assessment Caregiver is ready, willing and able to meet the patient's needs as recommended by the inter-professional team: No Caregiver needed Transportation Arrangements Transportation Arrangements: Car Date of Trip: 01/17/23 Destination: Home Handoff Communication: Handoff to: Primary Care Physician Primary Care Physician Name/Phone: Yazmin Campbell MD - Additional Information: Discharge Information Row Name Admission (Current) [facility] Follow-Up Appointment Provider Name Yazmin Campbell MD - SIGNATURE: Lillie Dailey RN PATIENT NAME: Rita Lewis DATE: January 17, 2023 TIME: 1:00 PM CONTACT #: [phone] Normal [facility] CBC panel Auto (Bld)on 01-17 Erythrocyte distribution width (RBC) [Ratio] 12.7 % Normal 11.5-15.0 [facility] Comment on above: Order Comment: Speci men Type: BLOOD SPECIMENOrdering Facility: [facility] Address: [address] [place], [place] [address] Performed By: #### 5 8410-2 ####[facility]ORATORYCLIA [id number] [address] Hematocrit (Bld) [Volume fraction] 36.7 % Low 39.0-51.0 [facility] Comment on above: Order Comment: Speci men Type: BLOOD SPECIMENOrdering Facility: [facility] Address: [address] [place] [address] Performed By: #### 5 8410-2 ####[facility]ORATORYCLIA [id number] [address] [place] Hemoglobin (Bld) [Mass/Vol] 12.9 g/dL Low 13.0-17.0 [facility] Comment on above: Order Comment: Speci men Type: BLOOD SPECIMENOrdering Facility: [facility] Address: [address] [place] [address] Performed By: #### 5 8410-2 ####[facility]ORATORYCLIA [id number] [address] MCH (RBC) [Entitic mass] 30.1 pg Normal 26.0-34.0 [facility] Comment on above: Order Comment: Speci men Type: BLOOD SPECIMENOrdering Facility: [facility] Address: [address] [place] [address] Performed By: #### 5 8410-2 ####[facility]ORATORYCLIA [id number] [address] MCHC (RBC) [Mass/Vol] 35.1 g/dL Normal 30.5-36.0 [facility] Comment on above: Order Comment: Speci men Type: BLOOD SPECIMENOrdering Facility: [facility] Address: [address] [place] [address] Performed By: #### 5 8410-2 ####[facility]ORATORYCLIA [id number] [address] MCV (RBC) [Entitic vol] 85.5 fL Normal 80.0-100.0 [facility] Comment on above: Order Comment: Speci men Type: BLOOD SPECIMENOrdering Facility: [facility] Address: [address] [address] Performed By: #### 5 8410-2 ####[facility]ORATORYCLIA [id number] [address] [place] Nucleated RBC (Bld) [#/Vol] 10*3/uL Normal <0.01 [facility] Comment on above: Order Comment: Speci men Type: BLOOD SPECIMENOrdering Facility: [facility] Address: [address] [address] Performed By: #### 5 8410-2 ####[facility]ORATORYCLIA [id number] [address] [place] Platelet mean volume (Bld) [Entitic vol] 10.4 fL Normal 9.0-12.7 [facility] Comment on above: Order Comment: Speci men Type: BLOOD SPECIMENOrdering Facility: [facility] Address: [address] [address] Performed By: #### 5 8410-2 ####[facility] LABORATORYCLIA [id number] [address] [place] Platelets (Bld) [#/Vol] 229 10*3/uL Normal 150-400 [facility] Comment on above: Order Comment: Speci men Type: BLOOD SPECIMENOrdering Facility: [facility] Address: [address] [place] [address] Performed By: #### 5 8410-2 ####[facility] LABORATORYCLIA [id number] [address] [place] RBC (Bld) [#/Vol] 4.29 10*6/uL Normal 4.20-6.00 [facility] Comment on above: Order Comment: Speci men Type: BLOOD SPECIMENOrdering Facility: [facility] Address: [address] [place] [address] Performed By: #### 5 8410-2 ####[facility] LABORATORYCLIA [id number] [address] [place] WBC (Bld) [#/Vol] 6.64 10*3/uL Normal 3.70-11.00 [facility] Comment on above: Order Comment: Speci men Type: BLOOD SPECIMENOrdering Facility: [facility] Address: [place] [address] Performed By: #### 5 8410-2 ####PAUL LABORATORYCLIA [id number] [place], [place] [address] [place] [address] CNDSon 01-17-2023 CNDS HNO ID: [id number] Author: Jonathon Rios DO Service: General Surgery Author Type: Resident Type: Discharge Summary Filed: 01/17/2023 12:07 PM Note Text: -- Attestation signed by Charli Andino MD at 01/17/2023 4:40 PM I saw and evaluated the patient. Discussed with the resident and agree with resident's findings and plan as documented in the resident's note. -- DISCHARGE SUMMARY PATIENT NAME: Rita Lewis ADMISSION DATE: 01/15/2023 DISCHARGE DATE: 01/17/2023 ATTENDING PHYSICIAN: Tammy Foreman MD Code Status: Not on file Highest Readmission Risk Score: 7 The 30 day readmissions risk score is derived from an internally validated risk model which evaluates patient level characteristics, utilization history, medication orders and lab results up until the day of discharge. Patients with a score of 40 or above are considered highest risk for readmission. Specific patient level drivers will be listed at the bottom of the summary. CONSULTING TEAMS DURING HOSPITALIZATION: None Treatment Team: Attending Provider: Tammy Foreman MD REASON FOR HOSPITALIZATION: Small Bowel Obstruction DIAGNOSIS: Principal Problem: SBO (small bowel obstruction) (HCC) (POA: Yes) Active Problems: Nausea AND vomiting (POA: Yes) Resolved Problems: * No resolved hospital problems. * OPERATIONS DURING HOSPITALIZATION: None PROCEDURES DURING HOSPITALIZATION: No procedures performed HOSPITAL COURSE: No notes on file Transitions of Care Critical Issues: None LABS AND PROCEDURES PENDING AT DISCHARGE: No pending results. PATIENT CONDITION AT DISCHARGE: Stable DISCHARGE DISPOSITION: Home with Self Care GENERAL: Alert, no distress, cooperative. HEAD: Normocephalic, atraumatic. EYES: EOMI, anicteric. NECK: Freely mobile. HEART: RR LUNGS: No respiratory distress. Good bilateral inspiratory effort. SKIN: Skin color, texture, turgor normal. No rashes or lesions. ABDOMEN: Soft NTND EXTREMITIES: Moves all four purposefully. PSYCH: AAOx3 INFORMATION PROVIDED TO PATIENT: None WOUND/SURGICAL SITE CARE: None DIET: Resume pre-hospital diet ACTIVITY: Resume pre-hospital activity ALLERGIES Allergen Reactions Seasonal Allergies Unknown DISCHARGE MEDICATION: Medication List CONTINUE taking these medications aluminum chloride 20 % external solution Commonly known as: DRYSOL Apply 1 application to affected area daily at bedtime. Decrease to 1-2 times weekly once sweating improves Tadalafil 5 mg tablet Commonly known as: CIALIS Take 1 tablet by mouth as needed. Take prior to sexual activity. tretinoin 0.05 % cream Commonly known as: RETIN-A Apply pea sized amount to full face nightly. May start every other night and advance to nightly as tolerated. STOP taking these medications benzonatate 100 mg capsule Commonly known as: JAVON NIELSON FUTURE APPOINTMENTS: Future Appointments Date Time Provider Department Center 02/02/2023 7:45 AM Mani Welch MD [facility] 05/20/2023 2:00 PM Brittnee Sheffield APRN.EMBROIDERER INTMWS [facility] The patient's risk for 30-day readmission is determined using the following contributing factors: Pt variables contributing to increased readmission risk: 9.4 First Resulted Calcium During Admission 7 Most Recent BUN Result 5 Active Medication Orders 1 Insurance - Medicare Plan of care discussed with Patient SIGNATURE: Jonathon Rios DO DATE: January 17, 2023 TIME: 12:05 PM Normal [facility] Comprehensive metabolic 2000 panelon 01-17-2023 Albumin [Mass/Vol] 3.6 g/dL Low 3.9-4.9 [facility] Comment on above: Order Comment: Speci men Type: BLOOD SPECIMEN [facility] Address: [address] [place] [address] Performed By: #### 2 4323-8 #### [facility] CLIA [id number] [address] ALP [Catalytic activity/Vol] 60 U/L Normal 38-113 [facility] Comment on above: Order Comment: Speci men Type: BLOOD SPECIMEN [facility] Address: [address] [place] [address] Performed By: #### 2 4323-8 #### [facility] CLIA [id number] [address] ALT [Catalytic activity/Vol] 11 U/L Normal 10-54 [facility] Comment on above: Order Comment: Speci men Type: BLOOD SPECIMEN [facility] Address: [address] [place] [address] Performed By: #### 2 4323-8 #### [facility] CLIA [id number] [address] Anion gap [Moles/Vol] 9 mmol/L Normal 9-18 [facility] Comment on above: Order Comment: Speci men Type: BLOOD SPECIMEN [facility] Address: [address] [address] Performed By: #### 2 4323-8 #### [facility] CLIA [id number] [address] AST [Catalytic activity/Vol] 16 U/L Normal 14-40 [facility] Comment on above: Order Comment: Speci men Type: BLOOD SPECIMEN [facility] Address: [address] [place] [address] Performed By: #### 2 4323-8 #### [facility] CLIA [id number] [address] [place] Bilirubin [Mass/Vol] 0.8 mg/dL Normal 0.2-1.3 [facility] Comment on above: Order Comment: Speci men Type: BLOOD SPECIMEN [facility] Address: [address] [place] [address] Performed By: #### 2 4323-8 #### [facility] CLIA [id number] [address] [place] [address] [place] Calcium [Mass/Vol] 9.0 mg/dL Normal 8.5-10.2 [facility] Comment on above: Order Comment: Speci men Type: BLOOD SPECIMEN [facility] Address: [address] [place] [address] Performed By: #### 2 4323-8 #### [facility] CLIA [id number] [address] [place] [address] [place] Chloride [Moles/Vol] 104 mmol/L Normal 97-105 [facility] Comment on above: Order Comment: Speci men Type: BLOOD SPECIMEN [facility] Address: [address] [place] [address] Performed By: #### 2 4323-8 #### [facility] CLIA [id number] [address] [place] [address] [place] CO2 [Moles/Vol] 27 mmol/L Normal 22-30 [facility] Comment on above: Order Comment: Speci men Type: BLOOD SPECIMEN [facility] Address: [address] [place] [address] Performed By: #### 2 4323-8 #### [facility] CLIA [id number] [address] [place] [address] [place] Creatinine [Mass/Vol] 1.01 mg/dL Normal 0.73-1.22 [facility] Comment on above: Order Comment: Speci men Type: BLOOD SPECIMEN [facility] Address: [address] [place] [address] Performed By: #### 2 4323-8 #### [facility] CLIA [id number] [address] [place] ESTIMATED GLOMERULAR FILTRATION RATE 91 mL/min/1.73m??? Normal >=60 [facility] Comment on above: Order Comment: Ca morales Type: BLOOD SPECIMEN [facility] Address: [address] [address] Result Comment: Barbara mated Glomerular Filtration Rate (eGFR) is calculated using the 2020 CKD-EPI creatinine equation. This equation utilizes serum creatinine, sex, and age as parameters. The creatinine assay has traceable calibration to isotope dilution-mass spectrometry. Refer to KDIGO guidelines for clinical interpretation. In patients with unstable renal function, e.g. those with acute kidney injury, the eGFR may not accurately reflect actual GFR. Performed By: #### 2 4323-8 #### [facility] CLIA [id number] [address] [place] [address] [place] Glucose [Mass/Vol] 94 mg/dL Normal 74-99 [facility] Comment on above: Order Comment: Ca morales Type: BLOOD SPECIMEN [facility] Address: [address] [place] [address] Result Comment: The [place] [employer] (ADA) provides guidance for cutoff values for fasting glucose and random glucose. The ADA defines fasting as no caloric intake for at least 8 hours. Fasting plasma glucose results between 100 to 125 mg/dL indicate increased risk for diabetes (prediabetes). Fasting plasma glucose results greater than or equal to 126 mg/dL meet the criteria for diagnosis of diabetes. In the absence of unequivocal hyperglycemia, results should be confirmed by repeat testing. In a patient with classic symptoms of hyperglycemia or hyperglycemic crisis, random plasma glucose results greater than or equal to 200 mg/dL meet the criteria for diagnosis of diabetes. Reference: Standards of Medical Care in Diabetes 2016, [place] [employer]. Diabetes Care. 2016.39(Suppl 1). Performed By: #### 2 4323-8 #### [facility] CLIA [id number] [address] [place] [address] [place] Potassium [Moles/Vol] 3.9 mmol/L Normal 3.7-5.1 [facility] Comment on above: Order Comment: Ca morales Type: BLOOD SPECIMEN [facility] Address: [address] Performed By: #### 2 4323-8 #### [facility] CLIA [id number] [address] Protein [Mass/Vol] 6.4 g/dL Normal 6.3-8.0 [facility] Comment on above: Order Comment: Speci men Type: BLOOD SPECIMEN [facility] Address: [address] [address] Performed By: #### 2 4323-8 #### [facility] CLIA [id number] [address] Sodium [Moles/Vol] 140 mmol/L Normal 136-144 [facility] Comment on above: Order Comment: Speci men Type: BLOOD SPECIMEN [facility] Address: [address] [address] Performed By: #### 2 4323-8 #### [facility] CLIA [id number] [address] Urea nitrogen [Mass/Vol] 7 mg/dL Low 9-24 [facility] Comment on above: Order Comment: Speci men Type: BLOOD SPECIMEN [facility] Address: [address] [place] [address] Performed By: #### 2 4323-8 #### [facility] CLIA [id number] [address] NURSING PROGon 01-17-2023 NURSING PROG HNO ID: [id number] Author: Adele Rodríguez RN Service: Nursing Author Type: Registered Nurse Type: Nursing Progress Note Filed: 01/17/2023 6:51 AM Note Text: 0630 no complaints overnight, pt feels better. No pain, no nausea pt stated that he had a very small liquid BM. Normal [facility] XR ABD 2V SUPINE W UPR/DECUB /CTLon 01-17-2023 XR ABD 2V SUPINE W UPR/DECUB/CTL * * *Final Report* * * DATE OF EXAM: Jan 17 2023 10:41AM MDX 5356 - XR ABD 2V SUPINE W UPR/DECUB/CTL / PROCEDURE REASON: Bowel obstruction suspected * * * * Physician Interpretation * * * * HISTORY: Bowel obstruction suspected abd pain TECHNIQUE: Supine and upright abdomen COMPARISON: 1 day prior RESULT: Gas-filled dilated small bowel is less marked than previously. Small amount of gas is noted in decompressed colon. No free air. No obvious gastric distention. IMPRESSION: Less small bowel distention than previously. Saw Repairer: BENNY Transcribe Date/Time: Jan 17 2023 11:14A Dictated by : ABY GUERRERO MD This examination was interpreted and the report reviewed and electronically signed by: ABY GUERRERO MD on Jan 17 2023 11:17AM EST [id number] [facility] ALLIED HEALTHon 01-16-2023 ALLIED HEALTH HNO ID: [id number] Author: RT Heidy(R) Service: Radiology Author Type: Technologist Type: Allied Health Filed: 01/16/2023 12:18 PM Note Text: Radiology Service Progress Note PATIENT NAME: Rita Lewis DATE OF SERVICE: January 16, 2023 TIME: 12:17 PM PATIENT IDENTITY VERIFICATION COMPLETED USING TWO (2) IDENTIFIERS: Name and Date of confirmed by patient verbally. FALL SCREENING: Has the patient had 2 falls in the last year or 1 fall with injury or currently using an Ambulatory Assistive Device (Walker, Cane, Wheelchair, Crutches, etc.)? Inpatient: Screened on floor PATIENT GENDER DATA: Male PATIENT RELEVANT IMPLANT DATA REVIEWED: Not Applicable RADIOLOGY DEPARTMENT: General X-ray: Exam(s) Completed: Abdomen X-Ray: Abdomen PERIPHERAL IV DATA: Not applicable SIGNED BY: RT Heidy(R) January 16, 2023 12:17 PM [facility] CASE MGT INIT ASSES 2022 CASE MGT INIT [facility] HNO ID: [id number] Author: JOSEPH Causey Service: ? Author Type: Steel Tier Type: Care Mgt Initial Assessment Filed: 01/16/2023 3:29 PM Note Text: CARE MANAGEMENT: ASSESSMENT AND DISCHARGE PLAN SERVICE DATE: January 16, 2023 SERVICE TIME: 3:27 PM PCP: Yazmin Campbell MD -verified- Primary Contact: Extended Emergency Contact Information Primary Emergency Contact: Shiloh Lewis Address: [address] [place] [address] Mobile Relation: Spouse Admission Status: Inpatient Insurance Provider: REBECA GRIMALDO Discharge Planning requested by: Potential Transition Plans Home;To Be Determined Advance Directives Current Advance Directive: None E Learning Designer Attempted to Assist with AD Completion: Yes Action: Education Provided Current Living Arrangements and Support Lives with: Children, Spouse/significant other Type of Residence: Private Residence (House) Does the patient have to climb stairs at home?: Yes;stairs outside the home;stairs within the home Support: Family members, Friends/neighbors, Spouse/significant other How do you manage to accomplish the following: Independent: Ambulation;Bathe/Shower;Me als/Meal Prep;Going to the bathroom;Medication Management;Transportation to appointments/community;Malachi ss Current Services/Equipment Current Post-Acute Service(s): None Discharge Planning Patient Goal(s): Be able to go home, General wellness, Less pain, Better appetite Epsom of Choice Explained: Are you interested in bedside delivery of your medications? Yes Discharge Planning Participant(s): Spouse/significant other;Patient Patient/Family Comments: Pt from home with spouse, adult children. Independent with all ADLs. Works/drives. Caregiver Assessment: Caregiver is ready, willing and able to meet the patient's needs as recommended by the inter-professional team: No Caregiver needed Transport at Discharge: Transportation Arrangements: Car Destination: home Needs Prior to Discharge: Needs Prior to Discharge: To Be Determined Post-Acute Discharge Plan: EMR reviewed. SW met with pt and at bedside. Pt sleeping; provided most info for Initial Assessment. Pt presented with SBO, N/V. Pt from home with , adult children. Independent with all ADLs, works, drives. Anticipate return to home with self care. Spouse will transport at discharge. inquiring about HCPOA docs - will supply blank forms at this time; SARAH/CM to follow up for completion. SIGNATURE: MARIE Causey PATIENT NAME: Rita Lewis DATE: January 16, 2023 TIME: 3:27 PM CONTACT #: [phone] [facility] CBC panel Auto (Bld)on 01-16 Erythrocyte distribution width (RBC) [Ratio] 12.7 % Normal 11.5-15.0 [facility] Comment on above: Order Comment: Speci men Type: BLOOD SPECIMENOrdering Facility: [facility] Address: [address] [place] [address] Performed By: #### 5 8410-2 ####PAUL LABORATORYCLIA [id number] [address] Hematocrit (Bld) [Volume fraction] 41.5 % Normal 39.0-51.0 [facility] Comment on above: Order Comment: Speci men Type: BLOOD SPECIMENOrdering Facility: [facility] Address: [address] [place] [address] Performed By: #### 5 8410-2 ####PAUL LABORATORYCLIA [id number] [address] Hemoglobin (Bld) [Mass/Vol] 14.4 g/dL Normal 13.0-17.0 [facility] Comment on above: Order Comment: Speci men Type: BLOOD SPECIMENOrdering Facility: [facility] Address: [address] [place] [address] Performed By: #### 5 8410-2 ####PAUL LABORATORYCLIA [id number] [address] MCH (RBC) [Entitic mass] 29.8 pg Normal 26.0-34.0 [facility] Comment on above: Order Comment: Speci men Type: BLOOD SPECIMENOrdering Facility: [facility] Address: [address] [place] [address] Performed By: #### 5 8410-2 ####PAUL LABORATORYCLIA [id number] [address] MCHC (RBC) [Mass/Vol] 34.7 g/dL Normal 30.5-36.0 [facility] Comment on above: Order Comment: Speci men Type: BLOOD SPECIMENOrdering Facility: [facility] Address: [address] [place] [address] Performed By: #### 5 8410-2 ####PAUL LABORATORYCLIA [id number] [address] MCV (RBC) [Entitic vol] 85.9 fL Normal 80.0-100.0 [facility] Comment on above: Order Comment: Speci men Type: BLOOD SPECIMENOrdering Facility: [facility] Address: [address] [address] Performed By: #### 5 8410-2 ####PAUL LABORATORYCLIA [id number] [address] [place] Nucleated RBC (Bld) [#/Vol] 10*3/uL Normal <0.01 [facility] Comment on above: Order Comment: Speci men Type: BLOOD SPECIMENOrdering Facility: [facility] Address: [address] [address] Performed By: #### 5 8410-2 ####PAUL LABORATORYCLIA [id number] [address] Platelet mean volume (Bld) [Entitic vol] 10.2 fL Normal 9.0-12.7 [facility] Comment on above: Order Comment: Speci men Type: BLOOD SPECIMENOrdering Facility: [facility] Address: [address] [address] Performed By: #### 5 8410-2 ####PAUL LABORATORYCLIA [id number] [address] [place] Platelets (Bld) [#/Vol] 249 10*3/uL Normal 150-400 [facility] Comment on above: Order Comment: Speci men Type: BLOOD SPECIMENOrdering Facility: [facility] Address: [address] [address] Performed By: #### 5 8410-2 ####PAUL LABORATORYCLIA [id number] [address] [place] RBC (Bld) [#/Vol] 4.83 10*6/uL Normal 4.20-6.00 [facility] Comment on above: Order Comment: Speci men Type: BLOOD SPECIMENOrdering Facility: [facility] Address: [address] [address] Performed By: #### 5 8410-2 ####PAUL LABORATORYCLIA [id number] [address] [place] WBC (Bld) [#/Vol] 8.24 10*3/uL Normal 3.70-11.00 [facility] Comment on above: Order Comment: Speci men Type: BLOOD SPECIMENOrdering Facility: [facility] Address: [address] [place] [address] Performed By: #### 5 8410-2 ####PAUL LABORATORYCLIA [id number] [address] Comprehensive metabolic 2000 panelon 01-16-2023 Albumin [Mass/Vol] 4.2 g/dL Normal 3.9-4.9 [facility] Comment on above: Order Comment: Speci men Type: BLOOD SPECIMENOrdering Facility: [facility] Address: [address] [place] [address] Performed By: #### 2 4323-8 ####PAUL LABORATORYCLIA [id number] [address] ALP [Catalytic activity/Vol] 70 U/L Normal 38-113 [facility] Comment on above: Order Comment: Speci men Type: BLOOD SPECIMENOrdering Facility: [facility] Address: [address] [place] [address] Performed By: #### 2 4323-8 ####PAUL LABORATORYCLIA [id number] [address] ALT [Catalytic activity/Vol] 14 U/L Normal 10-54 [facility] Comment on above: Order Comment: Speci men Type: BLOOD SPECIMENOrdering Facility: [facility] Address: [address] [address] Performed By: #### 2 4323-8 ####PAUL LABORATORYCLIA [id number] [address] Anion gap [Moles/Vol] 16 mmol/L Normal 9-18 [facility] Comment on above: Order Comment: Speci men Type: BLOOD SPECIMENOrdering Facility: [facility] Address: [address] [place] [address] Performed By: #### 2 4323-8 ####PAUL LABORATORYCLIA [id number] [address] [place] [facility] AST [Catalytic activity/Vol] 16 U/L Normal 14-40 [facility] Comment on above: Order Comment: Speci men Type: BLOOD SPECIMENOrdering Facility: [facility] Address: [address] [place] [address] Performed By: #### 2 4323-8 ####PAUL LABORATORYCLIA [id number] [place] [address] [place] Bilirubin [Mass/Vol] 0.7 mg/dL Normal 0.2-1.3 [facility] Comment on above: Order Comment: Speci men Type: BLOOD SPECIMENOrdering Facility: [facility] Address: [address] [place] [address] Performed By: #### 2 4323-8 ####PAUL LABORATORYCLIA [id number] [place] [address] [place] Calcium [Mass/Vol] 9.4 mg/dL Normal 8.5-10.2 [facility] Comment on above: Order Comment: Speci men Type: BLOOD SPECIMENOrdering Facility: [facility] Address: [address] [place] [address] Performed By: #### 2 4323-8 ####PAUL LABORATORYCLIA [id number] [place] [address] [place] Chloride [Moles/Vol] 104 mmol/L Normal 97-105 [facility] Comment on above: Order Comment: Speci men Type: BLOOD SPECIMENOrdering Facility: [facility] Address: [address] [address] Performed By: #### 2 4323-8 ####PAUL LABORATORYCLIA [id number] [place] [address] [place] CO2 [Moles/Vol] 21 mmol/L Low 22-30 [facility] Comment on above: Order Comment: Speci men Type: BLOOD SPECIMENOrdering Facility: [facility] Address: [address] [place] [address] Performed By: #### 2 4323-8 ####PAUL LABORATORYCLIA [id number] [address] [place] [facility] Creatinine [Mass/Vol] 1.04 mg/dL Normal 0.73-1.22 [facility] Comment on above: Order Comment: Ca morales Type: BLOOD SPECIMENOrdering Facility: [facility] Address: [address] [place] [address] Performed By: #### 2 4323-8 ####PAUL LABORATORYCLIA [id number] [address] ESTIMATED GLOMERULAR FILTRATION RATE 87 mL/min/1.73m??? Normal >=60 [facility] Comment on above: Order Comment: Ca morales Type: BLOOD SPECIMENOrdering Facility: [facility] Address: [address] [place] [address] Result Comment: Barbara mated Glomerular Filtration Rate (eGFR) is calculated using the 2020 CKD-EPI creatinine equation. This equation utilizes serum creatinine, sex, and age as parameters. The creatinine assay has traceable calibration to isotope dilution-mass spectrometry. Refer to KDIGO guidelines for clinical interpretation. In patients with unstable renal function, e.g. those with acute kidney injury, the eGFR may not accurately reflect actual GFR. Performed By: #### 2 4323-8 ####PAUL LABORATORYCLIA [id number] [address] Glucose [Mass/Vol] 88 mg/dL Normal 74-99 [facility] Comment on above: Order Comment: Ca morales Type: BLOOD SPECIMENOrdering Facility: [facility] Address: [address] [place] [address] Result Comment: The [place] [employer] (ADA) provides guidance for cutoff values for fasting glucose and random glucose. The ADA defines fasting as no caloric intake for at least 8 hours. Fasting plasma glucose results between 100 to 125 mg/dL indicate increased risk for diabetes (prediabetes). Fasting plasma glucose results greater than or equal to 126 mg/dL meet the criteria for diagnosis of diabetes. In the absence of unequivocal hyperglycemia, results should be confirmed by repeat testing. In a patient with classic symptoms of hyperglycemia or hyperglycemic crisis, random plasma glucose results greater than or equal to 200 mg/dL meet the criteria for diagnosis of diabetes. Reference: Standards of Medical Care in Diabetes 2016, [place] [employer]. Diabetes Care. 2016.39(Suppl 1). Performed By: #### 2 4323-8 ####PAUL LABORATORYCLIA [id number] [address] [place] [facility] Potassium [Moles/Vol] 4.1 mmol/L Normal 3.7-5.1 [facility] Comment on above: Order Comment: Speci men Type: BLOOD SPECIMENOrdering Facility: [facility] Address: [address] [address] Performed By: #### 2 4323-8 ####PAUL LABORATORYCLIA [id number] [address] [place] Protein [Mass/Vol] 7.1 g/dL Normal 6.3-8.0 [facility] Comment on above: Order Comment: Speci men Type: BLOOD SPECIMENOrdering Facility: [facility] Address: [address] [place] [address] Performed By: #### 2 4323-8 ####PAUL LABORATORYCLIA [id number] [address] [place] [facility] Sodium [Moles/Vol] 141 mmol/L Normal 136-144 [facility] Comment on above: Order Comment: Speci men Type: BLOOD SPECIMENOrdering Facility: [facility] Address: [address] [place] [address] Performed By: #### 2 4323-8 ####PAUL LABORATORYCLIA [id number] [address] [place] Urea nitrogen [Mass/Vol] 12 mg/dL Normal 9-24 [facility] Comment on above: Order Comment: Speci men Type: BLOOD SPECIMENOrdering Facility: [facility] Address: [address] [place] [address] Performed By: #### 2 4323-8 ####PAUL LABORATORYCLIA [id number] [place] [address] [place] XR ABDOMEN 1V SUPINEon 01-16 XR ABDOMEN 1V SUPINE * * *Final Report* * * DATE OF EXAM: Jan 16 2023 12:17PM MDX 5289 - XR ABDOMEN 1V SUPINE / PROCEDURE REASON: Bowel obstruction suspected * * * * Physician Interpretation * * * * EXAMINATION / TECHNIQUE: XR ABDOMEN 1V SUPINE, XR ABDOMEN 1V SUPINE ACCESSION NUMBER: [id number], [id number] HISTORY: BOWEL OBSTRUCTION Bowel obstruction suspected. COMPARISON: Outside abdominal radiographs 01/15/2023 Flat and views the abdomen were performed. FINDINGS: See impression IMPRESSION: No free air on the upright views. Dilated gas-filled loops of small bowel scattered air-fluid levels again compatible small bowel obstruction. Enteric tube present on the prior outside study is not visualized on the current study. Saw Repairer: SHERPA assistant Transcribe Date/Time: Jan 16 2023 4:33P Dictated by : JOSE GUADALUPE HUBBARD MD This examination was interpreted and the report reviewed and electronically signed by: JOSE GUADALUPE HUBBARD MD on Jan 16 2023 4:35PM EST [id number] XR ABDOMEN 1V SUPINE * * *Final Report* * * DATE OF EXAM: Jan 16 2023 12:16PM MDX 5289 - XR ABDOMEN 1V SUPINE / PROCEDURE REASON: Bowel obstruction suspected * * * * Physician Interpretation * * * * EXAMINATION / TECHNIQUE: XR ABDOMEN 1V SUPINE, XR ABDOMEN 1V SUPINE ACCESSION NUMBER: [id number], [id number] HISTORY: BOWEL OBSTRUCTION Bowel obstruction suspected. COMPARISON: Outside abdominal radiographs 01/15/2023 Flat and views the abdomen were performed. FINDINGS: See impression IMPRESSION: No free air on the upright views. Dilated gas-filled loops of small bowel scattered air-fluid levels again compatible small bowel obstruction. Enteric tube present on the prior outside study is not visualized on the current study. Saw Repairer: SHERPA assistant Transcribe Date/Time: Jan 16 2023 4:33P Dictated by : JOSE GUADALUPE HUBBARD MD This examination was interpreted and the report reviewed and electronically signed by: JOSE GUADALUPE HUBBARD MD on Jan 16 2023 4:35PM EST [id number] Absolute lymphocyte countOrd ered By: Earl Diaz on 01-15-2023 Lymphocytes Auto (Unsp spec) [#/Vol] 1.92 10*3/uL 0.83-4.[address] [facility] Basophil percentageOrdered B y: Earl Diaz on 01-15-2023 Basophils/100 WBC (Bld) 0.4 % 0-[address] [facility] Bilirubin [Mass/Vol] 0.90 mg/dL 0.20-1.00 [facility] Comment on above: For patients on eltr ombopag therapy, use of Dimension [place] TBIL is not recommended. Chloride [Moles/Vol] 101 mmol/L 98-107 [facility] Eosinophils/100 WBC (Bld) 0.1 % 0-[address] [facility] Glucose [Mass/Vol] 105 mg/dL 74-106 [facility] Comment on above: Fasting Glucose resu lt from 100 to 125 mg/dL suggests IMPAIRED HOMEOSTASIS per A.D.A. criteria. Neutrophils (Bld) [#/Vol] 5.4 10*3/uL 2.0-7.[address] [facility] Neutrophils/100 WBC (Bld) 68.2 % 47-[address] [facility] Potassium [Moles/Vol] 3.5 mmol/L 3.5-5.[address] [facility] Protein [Mass/Vol] 8.0 g/dL 6.4-8.2 [facility] Sodium [Moles/Vol] 135 mmol/L 136-145 [facility] WBC (Bld) [#/Vol] 7.9 10*3/uL 4.4-11.0 [facility] Blood erythrocytes count (nu mber/volume)Ordered By: Earl Diaz on 01-15-2023 RBC (Bld) [#/Vol] 4.91 10*6/uL 4.6-6.2 [facility] Blood hemoglobin measurement (mass/volume)Ordered By: Earl Diaz on 01-15-2023 Hemoglobin (Bld) [Mass/Vol] 14.6 g/dL 13.0-16.[address] [facility] Blood lymphocytes/100 leukoc ytesOrdered By: Earl Diaz on 01-15-2023 Lymphocytes/100 WBC (Bld) 24.3 % 19-[address] [facility] Blood monocytes/100 leukocyt esOrdered By: Earl Diaz on 01-15-2023 Monocytes/100 WBC (Bld) 6.7 % 0-[address] [facility] Blood platelet mean volumeOr dered By: Earl Diaz on 01-15-2023 Platelet mean volume (Bld) [Entitic vol] 11.0 fL 6.2-12.[address] [facility] Determination of erythrocyte mean corpuscular volume (MCV)Ordered By: Earl Diaz on 01-15-2023 MCV (RBC) [Entitic vol] 85.5 fL 80-[address] [facility] HISTORY PHYSICALon 3 HISTORY PHYSICAL HNO ID: [id number] Author: Araceli Goddard APRN.EMBROIDERER Service: General Internal Medicine Author Type: Nurse Practitioner Type: HANDP Filed: 01/15/2023 10:22 PM Note Text: -- Attestation signed by Tammy Foreman MD at 01/16/2023 9:36 AM I have examined patient and reviewed charting. In summary, 52 y/o male who underwent colonoscopy by Dr. Barboza on January 14, presented to [facility] ED on evening of January 15 with acute onset of abdominal pain. He underwent CT scan (without oral contrast) and there is question of small bowel obstruction. Normal lab studies - normal WBC, no left shift of differential. Patient has been passing flatus this entire time. He did feel abdominal bloating at the time, but this has resolved, he states. This morning, he denies abdominal pain. He has been passing flatus. NG tube placed last night - plan will be to d/c this morning and start clears. If tolerates, will d/c to home -- History and Physical Examination SERVICE DATE: 01/15/2023 SERVICE TIME: 2143 PCP: Yazmin Campbell MD PRIMARY ATTENDING: Tammy Esparza MD Subjective CHIEF COMPLAINT: Abdominal pain, nausea and vomiting HPI: Patient is a 52 year old male with a past medical history significant for high cholesterol, who presents with abdominal pain from the Emergency Department. He had a routine colonoscopy done yesterday with Dr. Barboza. He has had one before and never any issues. After he felt very bloated and had nausea and vomiting. This morning he had decreased appetite but the vomiting had subsided. ED workup: WBC count 7.9, hemoglobin normal at 14.6, hematocrit 42.0, platelet count normal at 268. He has a normal BUN of 10 and creatinine also normal at 1.04. LFTs, they are essentially unremarkable. History provided by: patient, family member, EMR, and outside medical records FUNCTIONAL STATUS: Independent PAST MEDICAL HISTORY Diagnosis Date Elevated cholesterol History of colonic polyps PAST SURGICAL HISTORY Procedure Laterality Date ARTHRO KNEE MEDIAL REL Right COLONOSCOPY FLX DX W/COLLJ SPEC WHEN PFRMD 08/2012 Colonoscopy COLONOSCOPY FLX DX W/COLLJ SPEC WHEN PFRMD 07/29/2017 repeat in 5 years COLONOSCOPY GEN ANES 2010 FAMILY HISTORY Problem Relation Age of Onset Hypertension Mother other (cholesterol) Mother Stroke Father Diabetes Brother Multiple Sclerosis Brother Social History Tobacco Use Smoking status: Never Smokeless tobacco: Never Substance Use Topics Alcohol use: No Drug use: No I have confirmed and edited as necessary, the PFSH obtained by others. ALLERGIES Allergen Reactions Seasonal Allergies Unknown Prior to Admission Medications Prescriptions Last Dose Informant Patient Reported? Taking? Tadalafil (CIALIS) 5 mg tablet Past Week No Yes Sig: Take 1 tablet by mouth as needed. Take prior to sexual activity. aluminum chloride (DRYSOL) 20 % external solution Unknown No No Sig: Apply 1 application to affected area daily at bedtime. Decrease to 1-2 times weekly once sweating improves benzonatate (TESSALON PERLES) 100 mg capsule Unknown No No Sig: Take 2 capsules by mouth three times daily as needed. Patient taking differently: Take 200 mg by mouth three times daily as needed. Pt states that he does not take tretinoin (RETIN-A) 0.05 % cream Unknown No No Sig: Apply pea sized amount to full face nightly. May start every other night and advance to nightly as tolerated. Facility-Administered Medications: None REVIEW OF SYSTEMS: Review of Systems Constitutional: Positive for appetite change. Negative for activity change, chills and fever. HENT: Negative for congestion, rhinorrhea, sinus pressure and sore throat. Eyes: Negative for pain, discharge and itching. Respiratory: Negative for cough, shortness of breath and wheezing. Cardiovascular: Negative for chest pain, palpitations and leg swelling. Gastrointestinal: Positive for abdominal pain, nausea and vomiting. Endocrine: Negative for polydipsia, polyphagia and polyuria. Genitourinary: Negative for difficulty urinating, frequency and urgency. Skin: Negative for color change, pallor and rash. Neurological: Negative for speech difficulty, weakness and headaches. Psychiatric/Behavioral: Negative for agitation, behavioral problems and confusion. The patient is nervous/anxious. Objective PHYSICAL EXAM: Physical Exam Vitals and nursing note reviewed. Constitutional: General: He is not in acute distress. Appearance: Normal appearance. He is normal weight. He is not ill-appearing. HENT: Head: Normocephalic and atraumatic. Nose: Nose normal. No congestion or rhinorrhea. Mouth/Throat: Mouth: Mucous membranes are moist. Pharynx: Oropharynx is clear. Eyes: General: Right eye: No di (more content not included)... Normal [facility] Hematocrit Auto (Bld) [Volum e fraction]Ordered By: Earl Diaz on 01-15-2023 Hematocrit (Bld) [Volume fraction] 42.0 % 40-[address] [facility] Laboratory - Chemistry and C hemistry - challengeOrdered By: Earl Diaz on 01-15-2023 ALP [Catalytic activity/Vol] 79 U/L 45-[address] [facility] ALT [Catalytic activity/Vol] 25 U/L 16-[address] [facility] CO2 [Moles/Vol] 27.0 mmol/L 21.0-32.[address] [facility] Globulin (S) [Mass/Vol] 4.1 g/dL 2.2-4.[address] [facility] Urea nitrogen/Creatinine [Mass ratio] 9.6 mg/mg 10-[address] [facility] Laboratory - Hematology and Cell countsOrdered By: Earl Diaz on 01-15-2023 Erythrocyte distribution width (RBC) [Entitic vol] 38.9 fL 35.1-43.[address] [facility] Erythrocyte distribution width (RBC) [Ratio] 12.6 % 11.6-14.[address] [facility] Immature granulocytes/100 WBC (Bld) 0.300 % 0.0-0.[address] [facility] [facility] Comment on above: IG% - Immature Granu locytes (promyelocytes, myelocytes and metamyelocytes) > 1% indicates that a LEFT SHIFT is Present. MCH (RBC) [Entitic mass] 29.7 pg 27.0-32.[address] [facility] Nucleated RBC/100 WBC (Bld) [Ratio] 0 % 0-[address] [facility] MCHC Auto (RBC) [Mass/Vol]Or dered By: Earl Diaz on 01-15-2023 MCHC (RBC) [Mass/Vol] 34.8 g/dL 32-[address] [facility] No Panel InformationOrdered By: Earl Diaz on 01-15-2023 Estimated Creatinine Clearance Calc 79.45 ml/min [facility] Estimated GFR (MDRD) Amer 97 mL/min >[address] [facility] Comment on above: GFR Calc Estimated GFR (MDRD) Non-Af Amer 80 mL/min >[address] [facility] Comment on above: Non- GFR Calc Platelets bldOrdered By: Cassie Diaz on 01-15-2023 Platelets (Bld) [#/Vol] 268 10*3/uL 150-[address] [facility] Serum or plasma albumin poppy urement (mass/volume)Ordered By: Earl Diaz on 01-15-2023 Albumin [Mass/Vol] 3.9 g/dL 3.2-5.0 [facility] [place] Serum or plasma albumin/glob ulin mass ratioOrdered By: Earl Diaz on 01-15-2023 Albumin/Globulin [Mass ratio] 1.0 {ratio} 0.9-2.[address] [facility] Serum or plasma calcium poppy urement (mass/volume)Ordered By: Earl Diaz on 01-15-2023 Calcium [Mass/Vol] 9.3 mg/dL 8.5-10.1 [facility] Serum or plasma creatinine m easurement (mass/volume)Ordered By: Earl Diaz on 01-15-2023 Creatinine [Mass/Vol] 1.04 mg/dL 0.70-1.[address] [facility] Comment on above: The validity of the calculated GFR & GFRAA in patients over 70 years has not been determined. Clinical correlation is essential. Serum or plasma urea nitroge n measurement (mass/volume)Ordered By: Earl Diaz on 01-15-2023 Urea nitrogen [Mass/Vol] 10 mg/dL 01-[address] [facility] Thin prep Papanicolaou smear with manual screeningOrdered By: Earl Diaz on 01-15-2023 Thin prep Papanicolaou smear with manual screening 17 U/L [facility] Thin prep Papanicolaou smear with manual screening 7 11-[address] [facility] COLONOSCOPY SCREENINGon 01-01 [facility] XR Chest PA and Lateralon IMPRESSION: No acute radiographic abnormality. Saw Repairer: BENNY Transcribe Date/Time: Jul 21 2022 5:21P Dictated by : KING QUINTANILLA MD This examination was interpreted and the report reviewed and electronically signed by: KING QUINTANILLA MD on Jul 21 2022 5:22PM [facility] DIVISION OF RADIOLOGY * * *Final Report* * * DATE OF EXAM: Jul 21 2022 5:14PM WOX [id number] - XR CHEST 2V FRONTAL/LAT / PROCEDURE REASON: Bronchitis * * * * Physician Interpretation * * * * EXAMINATION: CHEST RADIOGRAPH (2 VIEW FRONTAL & LATERAL) CLINICAL HISTORY: Bronchitis MQ: XC2_6 EXAM DATE/TIME: 07/21/2022 5:14 PM COMPARISON: No relevant prior studies available. RESULT: Lines, tubes, and devices: None. Lungs and pleura: Low lung volumes. No consolidation. No lung mass. No pleural effusion. No pneumothorax. Cardiomediastinal silhouette: Normal cardiomediastinal silhouette. Bones and soft tissues: Unremarkable. DIVISION OF RADIOLOGY Provider, [facility] - 07/21/2022 * * *Final Report* * * DATE OF EXAM: Jul 21 2022 5:14PM WOX [id number] - XR CHEST 2V FRONTAL/LAT / PROCEDURE REASON: Bronchitis * * * * Physician Interpretation * * * * EXAMINATION: CHEST RADIOGRAPH (2 VIEW FRONTAL & LATERAL) CLINICAL HISTORY: Bronchitis MQ: XC2_6 EXAM DATE/TIME: 07/21/2022 5:14 PM COMPARISON: No relevant prior studies available. RESULT: Lines, tubes, and devices: None. Lungs and pleura: Low lung volumes. No consolidation. No lung mass. No pleural effusion. No pneumothorax. Cardiomediastinal silhouette: Normal cardiomediastinal silhouette. Bones and soft tissues: Unremarkable. IMPRESSION IMPRESSION: No acute radiographic abnormality. Saw Repairer: PSCB Transcribe Date/Time: Jul 21 2022 5:21P Dictated by : KING QUINTANILLA MD This examination was interpreted and the report reviewed and electronically signed by: KING QUINTANILLA MD on Jul 21 2022 5:22PM EST [facility] Radiology Study observation (narrative) [facility] XR Chest PA and LateralOrder ed By: [facility] Provider on 07-21-2022 [facility] Vital Signs Date Time Vital Sign Value Performing Clinician Facility 01-29-2025 14:46-0400 Body temperature 98.9 [degF] Dr. Yazmin Campbell MD Work Phone: 1([phone] [place] [address] 01-29-2025 14:46-0400 Diastolic blood pressure 82 mm[Hg] Dr. Yazmin Campbell MD Work Phone: 4([phone])[phone] [place] [address] 01-29-2025 14:46-0400 Heart rate 59 /min Dr. Yazmin Campbell MD Work Phone: 4(395)[phone] [place] [address] 01-29-2025 14:46-0400 Respiratory rate 18 /min Dr. Yazmin Campbell MD Work Phone: 6([phone] [place] [address] 01-29-2025 14:46-0400 SaO2% (BldA) [Mass fraction] 98 % Dr. Yazmin Campbell MD Work Phone: 2(955)[phone] [place] [address] 01-29-2025 14:46-0400 Systolic blood pressure 125 mm[Hg] Dr. Yazmin Campbell MD Work Phone: 7([phone])[phone] [place] [address] 01-29-2025 12:53-0400 Body height 170.[address] Yazmni Campbell MD Work Phone: 2(038)[phone] [place] [address] 01-29-2025 12:53-0400 Body mass index (BMI) [Ratio] 30.4 kg/m2 Dr. Yazmin Campbell MD Work Phone: [facility] 01-29-2025 12:53-0400 Body weight [address] Yazmin Campbell MD Work Phone: [facility] 12-28-2024 10:55-0400 Body mass index (BMI) [Ratio] 29.91 kg/m2 Brittnee Older VENTILATOR SPECIALIST.EMBROIDERER Work Phone: [facility] 12-28-2024 10:55-0400 Body weight 86.64 kg Brittnee Older VENTILATOR SPECIALIST.EMBROIDERER Work Phone: [facility] 12-28-2024 10:55-0400 Diastolic blood pressure 88 mm[Hg] Brittnee Older VENTILATOR SPECIALIST.EMBROIDERER Work Phone: [facility] 12-28-2024 10:55-0400 Heart rate 64 /min Brittnee Older VENTILATOR SPECIALIST.EMBROIDERER Work Phone: [facility] 12-28-2024 10:55-0400 Respiratory rate 16 /min Brittnee Older VENTILATOR SPECIALIST.EMBROIDERER Work Phone: [facility] 12-28-2024 10:55-0400 SaO2% (BldA) [Mass fraction] 98 % Brittnee Older VENTILATOR SPECIALIST.EMBROIDERER Work Phone: [facility] 12-28-2024 10:55-0400 Systolic blood pressure 140 mm[Hg] Brtitnee Older VENTILATOR SPECIALIST.EMBROIDERER Work Phone: [facility] 06-05-2024 08:14-0500 Body height 170.2 cm Gunnar Bogner PA-C Work Phone: [facility] 06-05-2024 08:14-0500 Body mass index (BMI) [Ratio] 31.42 kg/m2 Gunnar Bogner PA-C Work Phone: [facility] 06-05-2024 08:14-0500 Body temperature 97.59 [degF] Gunnar Bogner PA-C Work Phone: [facility] 06-05-2024 08:14-0500 Body weight 91 kg Gunnar Bogner PA-C Work Phone: [facility] 06-05-2024 08:14-0500 Diastolic blood pressure 64 mm[Hg] Gunnar Bogner PA-C Work Phone: [facility] 06-05-2024 08:14-0500 Heart rate 64 /min Gunnar Bogner PA-C Work Phone: [facility] 06-05-2024 08:14-0500 Respiratory rate 12 /min Gunnar Bogner PA-C Work Phone: [facility] 06-05-2024 08:14-0500 SaO2% (BldA) [Mass fraction] 97 % Gunnar Bogner PA-C Work Phone: [facility] 06-05-2024 08:14-0500 Systolic blood pressure 130 mm[Hg] Gunnar Bogner PA-C Work Phone: [facility] 11-09-2023 15:19-0400 Diastolic blood pressure 80 mm[Hg] Brittnee Older VENTILATOR SPECIALIST.EMBROIDERER Work Phone: [facility] 11-09-2023 15:19-0400 Systolic blood pressure 124 mm[Hg] Brittnee Older VENTILATOR SPECIALIST.EMBROIDERER Work Phone: [facility] 11-09-2023 14:49-0400 Body height 170.2 cm Brittnee Older VENTILATOR SPECIALIST.EMBROIDERER Work Phone: [facility] 11-09-2023 14:49-0400 Body mass index (BMI) [Ratio] 30.54 kg/m2 Brittnee Older VENTILATOR SPECIALIST.EMBROIDERER Work Phone: [facility] 11-09-2023 14:49-0400 Body temperature 98.71 [degF] Brittnee Older VENTILATOR SPECIALIST.EMBROIDERER Work Phone: [facility] 11-09-2023 14:49-0400 Body weight 88.45 kg Brittnee Older VENTILATOR SPECIALIST.EMBROIDERER Work Phone: [facility] 11-09-2023 14:49-0400 Heart rate 57 /min Brittnee Older VENTILATOR SPECIALIST.EMBROIDERER Work Phone: [facility] 11-09-2023 14:49-0400 Respiratory rate 12 /min Brittnee Older VENTILATOR SPECIALIST.EMBROIDERER Work Phone: [facility] 11-09-2023 14:49-0400 SaO2% (BldA) [Mass fraction] 98 % Brittnee Older VENTILATOR SPECIALIST.EMBROIDERER Work Phone: [facility] 10-14-2023 02:20-0400 Body temperature 98.1 [degF] [facility] 10-14-2023 02:20-0400 Diastolic blood pressure 88 mm[Hg] [facility] 10-14-2023 02:20-0400 Heart rate 68 /min [facility] 10-14-2023 02:20-0400 Respiratory rate 17 /min [facility] 10-14-2023 02:20-0400 SaO2% (BldA) [Mass fraction] 98 % [facility] 10-14-2023 02:20-0400 Systolic blood pressure 134 mm[Hg] [facility] 10-14-2023 00:53-0400 Body height 170.18 cm [facility] 10-14-2023 00:53-0400 Body mass index (BMI) [Ratio] 31.4 kg/m2 [facility] 10-14-2023 00:53-0400 Body weight 91.08 kg [facility] 01-15-2023 17:22-0400 Diastolic blood pressure 79 mm[Hg] [facility] 01-15-2023 17:22-0400 Heart rate 60 /min [facility] 01-15-2023 17:22-0400 Respiratory rate 14 /min [facility] 01-15-2023 17:22-0400 SaO2% (BldA) [Mass fraction] 98 % [facility] 01-15-2023 17:22-0400 Systolic blood pressure 138 mm[Hg] [facility] 01-15-2023 09:10-0400 Body height 170.18 cm [facility] 01-15-2023 09:10-0400 Body mass index (BMI) [Ratio] 30.2 kg/m2 [facility] 01-15-2023 09:10-0400 Body temperature 97.3 [degF] [facility] 01-15-2023 09:10-0400 Body weight 87.54 kg [facility] 01-14-2023 11:30-0400 Diastolic blood pressure 86 mm[Hg] Thiago Barboza MD Work Phone: [facility] 01-14-2023 11:30-0400 Heart rate 67 /min Thiago Barboza MD Work Phone: [facility] 01-14-2023 11:30-0400 Respiratory rate 16 /min Thiago Barboza MD Work Phone: [facility] 01-14-2023 11:30-0400 SaO2% (BldA) [Mass fraction] 97 % Thiago Barboza MD Work Phone: [facility] 01-14-2023 11:30-0400 Systolic blood pressure 140 mm[Hg] Thiago Barboza MD Work Phone: [facility] 01-14-2023 10:08-0400 Body temperature 97.81 [degF] Thiago Barboza MD Work Phone: [facility] 01-14-2023 10:08-0400 Body weight 88.5 kg Thiago Barboza MD Work Phone: [facility] 03-16-2022 14:14-0400 Diastolic blood pressure 80 mm[Hg] Yanet Alexis VENTILATOR SPECIALIST.JAVA SECURITY ARCHITECT Work Phone: [facility] 03-16-2022 14:14-0400 Heart rate 56 /min Yanet Alexis VENTILATOR SPECIALIST.JAVA SECURITY ARCHITECT Work Phone: [facility] 03-16-2022 14:14-0400 Systolic blood pressure 130 mm[Hg] Yanet Alexis VENTILATOR SPECIALIST.JAVA SECURITY ARCHITECT Work Phone: [facility] 03-16-2022 14:04-0400 Body weight 87.09 kg Yanet Alexis VENTILATOR SPECIALIST.JAVA SECURITY ARCHITECT Work Phone: [facility] 03-16-2022 14:04-0400 Respiratory rate 16 /min Yanet Alexis VENTILATOR SPECIALIST.JAVA SECURITY ARCHITECT Work Phone: [facility] Encounters Encounter Date Encounter Type Care Provider Facility Start: 01-29-2025 Non-patient / Non-visit Jhonathan Brice nd DO -[facility] Start: 01-29-2025 End: 01-29-2025 Admission to same day surgery center Jhonathan House DO -Endoscopy Work Phone: Start: 01-29-2025 End: 01-29-2025 ambulatory Yazmin Campbell Facility:[facility] Start: 12-28-2024 End: 12-28-2024 ambulatory [facility] Facility:[facility] Start: 12-28-2024 End: 12-28-2024 Periodic preventive med est patient 40-64yrs Brittnee Sheffield VENTILATOR SPECIALIST.EMBROIDERER Work Phone: [facility] [place] Comment on above: Annual physical exam (Primary Dx); Gastroesophageal reflux disease, unspecified whether esophagitis present; Prediabetes; Elevated blood pressure reading; Mixed hyperlipidemia; Family history of early CAD; Bilateral impacted cerumen; Screening for depression; Encounter for screening examination for other mental health and behavioral disorders; Special screening examination for viral disease; Screening for HIV (human immunodeficiency virus) Start: 12-28-2024 End: 12-28-2024 ambulatory [facility] Facility:[facility] Start: 12-28-2024 End: 12-28-2024 Patient encounter procedure Brittnee Sheffield VENTILATOR SPECIALIST.EMBROIDERER Work Phone: [facility] Start: 12-05-2024 End: 12-05-2024 Patient encounter procedure Idalmis THOMPSON -[facility] Work Phone: Start: 12-05-2024 End: 12-05-[address] Yazmin Campbell MD Work Phone: [facility] Work Phone: Start: 10-01-2024 End: 10-01-2024 ambulatory Matt Rashid RN NURSE INFRASTRUCTURE ENGINEER Comment on above: Information Start: 09-26-2024 End: 09-26-2024 ambulatory MANI RANASINGHE Facility:[facility] Start: 09-26-2024 End: 09-26-2024 Patient encounter procedure Mani Welch MD Work Phone: Dermatology Comment on above: Hyperhidrosis of pal ms (Primary Dx) Start: 06-12-2024 End: 06-12-2024 Telephone encounter Gunnar Lopez PA-C Work Phone: [facility] [place] Comment on above: Results Start: 06-05-2024 End: 06-05-2024 ambulatory GUNNAR LOPEZ Facility:[facility] Start: 06-05-2024 End: 06-05-2024 Office outpatient new 45 minutes Gunnar Lopez PA-C Work Phone: [facility] [place] Comment on above: Mixed hyperlipidemia (Primary Dx); Elevated glucose; Screening for prostate cancer; Acute cough Start: 04-23-2024 End: 04-23-2024 Refill Mani Welch MD Work Phone: Dermatology Comment on above: Med Change Request Start: 04-21-2024 End: 04-23-2024 Refill Mani Welch MD Work Phone: Dermatology Comment on above: Med Change Request Start: 04-11-2024 End: 04-11-2024 Patient encounter procedure Mani Welch MD Work Phone: Dermatology Comment on above: Hyperhidrosis of pal ms (Primary Dx) Start: 04-11-2024 End: 04-11-2024 ambulatory MANI RANASINGHE Facility:[facility] Start: 11-14-2023 Telephone encounter Yazmin pickett MD Work Phone: [facility] [place] Comment on above: Insurance Authorizat ion Start: 11-11-2023 Telephone encounter Brittnee Sheffield APRN.EMBROIDERER Work Phone: [facility] [place] Comment on above: Results Start: 11-09-2023 End: 11-09-2023 Patient encounter procedure Brittnee Sheffield APRN.EMBROIDERER Work Phone: [facility] [place] Comment on above: Erectile dysfunction , unspecified erectile dysfunction type (Primary Dx); Hypokalemia; Hand cramp; Class 1 obesity with body mass index (BMI) of 30.0 to 30.9 in adult, unspecified obesity type, unspecified whether serious comorbidity present; Annual physical exam Start: 10-19-2023 End: 10-19-2023 Patient encounter procedure Mani Welch MD Work Phone: Dermatology Comment on above: Hyperhidrosis of pal ms (Primary Dx); Axillary hyperhidrosis Start: 10-17-2023 Telephone encounter Brittnee Sheffield APRN.EMBROIDERER Work Phone: [facility] [place] Comment on above: Patient Question Start: 10-14-2023 End: 10-14-2023 Emergency department patient visit [facility] Work Phone: Start: 10-04-2023 Telephone encounter Mani Welch MD Work Phone: [facility] Comment on above: Insurance Authorizat ion ([place]-P2P requested) Start: 09-21-2023 Telephone encounter Mani Wlech MD Work Phone: Dermatology Comment on above: Log Sorter - O ther Start: 09-20-2023 Telephone encounter Mani Welch MD Work Phone: [facility] Comment on above: Insurance Authorizat ion ([place] Delayed-Additional information needed) Start: 02-02-2023 End: 02-02-2023 Patient encounter procedure Mani Welch MD Work Phone: Dermatology Comment on above: Hyperhidrosis of pal ms (Primary Dx) Start: 01-18-2023 Patient Outreach Quiana Davila RN Work Phone: Assistant Film Editor Management Comment on above: Transition Of Care ( TCM Initial Hospital Discharge 01/17/2023) Start: 01-15-2023 End: 01-17-2023 Evaluation and management of inpatient [facility] Facility:[facility] Start: 01-15-2023 End: 01-15-2023 Emergency department patient visit [facility]Emergency [facility] Work Phone: Start: 01-14-2023 End: 01-14-2023 ambulatory Kalee Lebron RN NURSE INFRASTRUCTURE ENGINEER Comment on above: Patient Update Information Start: 01-14-2023 End: 01-14-2023 Patient encounter procedure Calista Pabon RN NURSE INFRASTRUCTURE ENGINEER Comment on above: Clinical Update Start: 01-14-2023 End: 01-14-2023 Subsequent hospital visit by physician Thiago Barboza MD Work Phone: Ambulatory Surgery Comment on above: Special screening fo r malignant neoplasms, colon [Z12.11] Start: 12-28-2022 Telephone encounter Tahir watts MD Work Phone: Plastic Surgery Comment on above: Appointment Start: 12-08-2022 E-mail encounter fro m caregiver Mani Welch MD Work Phone: [facility] Start: 12-08-2022 Patient encounter procedure Mani Welch MD Work Phone: Dermatology Comment on above: Appointment Reschedu le Start: 11-12-2022 Refill Yanet Alexis VENTILATOR SPECIALIST.JAVA SECURITY ARCHITECT Work Phone: [facility] [place] Comment on above: Refill Request Start: 10-13-2022 End: 10-13-2022 Patient encounter procedure Mani Welch MD Work Phone: Dermatology Comment on above: Hyperhidrosis of pal ms (Primary Dx) Start: 07-21-2022 End: 07-21-2022 Subsequent hospital visit by physician [facility] Work Phone: Radiology Comment on above: Bronchitis [J40] Start: 05-12-2022 Orders Only Yanet Alexis VENTILATOR SPECIALIST.JAVA SECURITY ARCHITECT Work Phone: [facility] [place] Start: 04-27-2022 Orders Only Yanet Alexis VENTILATOR SPECIALIST.JAVA SECURITY ARCHITECT Work Phone: [facility] [place] Start: 03-16-2022 End: 03-16-2022 Patient encounter procedure Yanet Alexis VENTILATOR SPECIALIST.JAVA SECURITY ARCHITECT Work Phone: [facility] [place] Comment on above: Erectile dysfunction , unspecified erectile dysfunction type (Primary Dx); Encounter for immunization; Special screening examination for viral disease; Screening for HIV (human immunodeficiency virus); Blood in stool; Colon cancer screening; Excessive cerumen in both ear canals Start: 02-04-2022 Refill Yazmin Andujar Work Phone: [facility] [place] Comment on above: Refill Request Start: 12-01-2021 End: 12-01-2021 Patient encounter procedure Eusebia Stroud MD Work Phone: Dermatology Comment on above: Axillary hyperhidros is (Primary Dx); Hyperhidrosis of hands Start: 10-28-2021 Refill Brittnee ArriagaEMBROIDERER Work Phone: [facility] [place] Comment on above: Refill Request Start: 08-12-2018 End: 08-12-2018 Patient encounter procedure [facility] Facility:A Procedures Date Procedure Procedure Detail Performing Clinician Start: 01-29-[address] Yazmin mary MD Work Phone: Start: 12-28-2024 Adult depression screening assessment Brittnee Sheffield APRN.EMBROIDERER Work Phone: Start: 06-05-2024 Lipid 1996 panel - Serum or Plasma Shagufta Lopez PA-C Work Phone: Start: 11-09-2023 Lipid 1996 panel - Serum or Plasma Brittnee cadena VENTILATOR SPECIALIST.EMBROIDERER Work Phone: Start: 01-15-2023 Plain X-ray abdomen Start: 01-15-2023 Computed tomography of abdomen and pelvis with intravenous contrast Start: 01-15-2023 Diagnostic radiography of abdomen Start: 01-14-2023 Colonoscopy flx dx w/collj spec when pfrmd Brittnee Sheffield APRN.EMBROIDERER Work Phone: Start: 01-14-2023 Colonoscopy Kalee Lebron RN Start: 11-17-2022 Lipid 1995 panel - Serum or Plasma Joseph Barboza MD Work Phone: Start: 07-21-2022 Radiologic exam chest 2 views Letitia R Ath johanny ROJOC Work Phone: Start: 03-16-2022 Adult depression screening assessment Yanet Alexis VENTILATOR SPECIALIST.JAVA SECURITY ARCHITECT Work Phone: Start: 09-19-2018 Adult depression screening assessment Brittnee Sheffield VENTILATOR SPECIALIST.EMBROIDERER Work Phone: Start: 07-29-2017 Colonoscopy Brittnee Sheffield VENTILATOR SPECIALIST.EMBROIDERER Work Phone: Plan of Treatment Date Care Activity Detail Author Start: 06-05-2029 Lipid panel Lipid Screening [facility] Start: 06-05-2029 Prostate specific antigen measurement Prostate Cancer Screening Discussion [facility] Start: 11-08-2028 Lipid panel Lipid Screening [facility] Start: 01-15-2028 Colonoscopy COLONOSCOPY [facility] Start: 01-15-2028 COLORECTAL CANCER SCREENING COLORECTAL CANCER SCREENING [facility] Start: 01-15-2028 Screening for malign ant neoplasm of colon [facility] Start: 11-18-2027 Lipid 1996 panel - Serum or Plasma Lipid Screening [facility] Start: 11-18-2027 Lipid panel Lipid Screening [facility] Start: 11-18-2027 LIPID SCREEN LIPID SCREEN [facility] Start: 06-05-2027 Diabetes Screening Diabetes Screenin [facility] Start: 03-16-2027 LIPID SCREEN LIPID SCREEN [facility] Start: 11-08-2026 Diabetes Screening Diabetes Screenin [facility] Start: 01-17-2026 DIABETES SCREEN DIABETES SCREEN [facility] Start: 01-17-2026 Diabetes Screening Diabetes Screenin g [facility] Start: 12-28-2025 Anxiety Screening Anxiety Screening [facility] Start: 12-28-2025 Covid-19 Vaccine ( season) Covid-19 Vaccine () [facility] Comment on above: Postponed from 03/04 (Declined at this time) Start: 12-28-2025 Depression Screening Depression Scre ening [facility] Start: 12-28-2025 Hepatitis B Vaccine (1 of 3 - 19+ 3-dose series) Hepatitis B Vaccine (1 of 3 - 19+ 3-dose series) [facility] Comment on above: Postponed from 08/15 (Declined at this time) Start: 12-28-2025 Pneumococcal Vaccine : 50+ (1 of 1 - PCV) Pneumococcal Vaccine: 50+ (1 of 1 - PCV) [facility] Comment on above: Postponed from 08/15 (Declined at this time) Start: 12-28-2025 Shingrix Vaccine (1 of 2) Shingrix Vaccine (1 of 2) [facility] Comment on above: Postponed from 08/15 (Declined at this time) Start: 12-28-2025 Urine microalbumin profile DTaP,Tdap,Td Vaccine (1 - Tdap) [facility] Comment on above: Postponed from 08/15 (Declined at this time) Start: 11-17-2025 DIABETES SCREEN DIABETES SCREEN [facility] Start: 10-31-2025 LIPID SCREEN LIPID SCREEN [facility] Start: 03-27-2025 End: 03-27-2025 Patient encounter procedure 03/27/2025 3:45 PM EDT Office Visit Dermatology [address] [place] [address] Mani Welch MD [address] [place] [address] botox hyperhidrosis Dermatology Comment on above: botox hyperhidrosis Start: 03-16-2025 DIABETES SCREEN DIABETES SCREEN [facility] Start: 03-04-2025 Influenza vaccination Influenz a Vaccine (Season Ended) [facility] Start: 01-29-2025 Patient discharge [facility] Start: 01-25-2025 End: 01-25-2025 Patient encounter procedure 01/25/2025 1:00 PM EDT Office Visit [facility] [place] [address] [place], [place] [id number] Brittnee Sheffield APRN.EMBROIDERER [address] [place], [place] [address] 4 week BP follow up [facility] [place] Comment on above: 4 week BP follow up Start: 12-28-2024 End: 03-29-2025 Comprehensive metabolic 2000 panel - Serum or Plasma [facility] Comment on above: Expected: 12/28/2024 , Expires: 03/29/2025 Start: 12-28-2024 End: 03-29-2025 Hemoglobin A1c in Blood [facility] Comment on above: Expected: 12/28/2024 , Expires: 03/29/2025 Start: 12-28-2024 End: 03-29-2025 Hepatitis C virus Ab [Presence] in Serum [facility] Comment on above: Expected: 12/28/2024 , Expires: 03/29/2025 Start: 12-28-2024 End: 03-29-2025 HIV 1+2 Ab [Presence] in Serum or Plasma by Immunoassay [facility] Comment on above: Expected: 12/28/2024 , Expires: 03/29/2025 Start: 12-28-2024 End: 03-29-2025 Lipid 1996 panel - Serum or Plasma [facility] Comment on above: Expected: 12/28/2024 , Expires: 03/29/2025 Start: 12-04-2024 End: 12-04-2024 Patient encounter procedure 12/04/2024 8:40 AM EDT Office Visit Internal Medicine [address] [address] Yazmin Campbell MD [address] [place], [place] [address] 6 month follow up-labs [facility] [place] Comment on above: 6 month follow up-la bs Start: 09-26-2024 End: 09-26-2024 Patient encounter procedure 09/26/2024 3:45 PM EDT Office Visit Dermatology [address] [place] [address] Mani Welch MD [address] [place] [address] Hyperhidrosis Dermatology Comment on above: Hyperhidrosis Start: 06-05-2024 End: 09-04-2024 CBC W Auto Differential panel - Blood [facility] Comment on above: Expected: 06/05/2024 , Expires: 09/04/2024 Start: 06-05-2024 End: 09-04-2024 Comprehensive metabolic 2000 panel - Serum or Plasma [facility] Comment on above: Expected: 06/05/2024 , Expires: 09/04/2024 Start: 06-05-2024 End: 09-04-2024 Hemoglobin A1c in Blood [facility] Work Phone: Comment on above: Expected: 06/05/2024 , Expires: 09/04/2024 Start: 06-05-2024 End: 09-04-2024 Lipid 1996 panel - Serum or Plasma [facility] Comment on above: Expected: 06/05/2024 , Expires: 09/04/2024 Start: 06-05-2024 End: 09-04-2024 PSA/PROSTATE SPECIFIC ANTIGEN SCREENING [facility] Comment on above: Expected: 06/05/2024 , Expires: 09/04/2024 Start: 06-05-2024 End: 09-04-2024 Thyrotropin [Units/volume] in Serum or Plasma [facility] Comment on above: Expected: 06/05/2024 , Expires: 09/04/2024 Start: 04-11-2024 End: 04-11-2024 Patient encounter procedure 04/11/2024 2:00 PM EDT Office Visit Dermatology [address] [place] [address] Mani Welch MD [address] [place] [address] hyperhidrosis Dermatology Comment on above: hyperhidrosis Start: 03-04-2024 Covid-19 Vaccine ( season) Covid-19 Vaccine ( season) [facility] Start: 03-04-2024 Influenza vaccination [facility] Start: 11-18-2023 Urine microalbumin profile [facility] Comment on above: Postponed from 08/15 (Declined at this time) Start: 11-09-2023 End: 11-09-2023 Patient encounter procedure 11/09/2023 3:00 PM EDT Office Visit Internal Medicine [place] [address] [place] [address] Brittnee Sheffield APRN.CONSUELO [address] [place] [address] ER Follow up, [facility] 10/14/23 [facility] [place] Comment on above: ER Follow up, [facility] 06/26 Start: 11-09-2023 End: 02-08-2024 Comprehensive metabolic 2000 panel - Serum or Plasma [facility] Work Phone: Comment on above: Expected: 11/09/2023 , Expires: 02/08/2024 Start: 11-09-2023 End: 02-08-2024 Lipid 1996 panel - Serum or Plasma [facility] Comment on above: Expected: 11/09/2023 , Expires: 02/08/2024 Start: 11-09-2023 End: 02-08-2024 TESTOSTERONE, FREE AND TOTAL [facility] Comment on above: Expected: 11/09/2023 , Expires: 02/08/2024 Start: 11-09-2023 End: 02-08-2024 Thyrotropin [Units/volume] in Serum or Plasma [facility] Comment on above: Expected: 11/09/2023 , Expires: 02/08/2024 Start: 11-01-2023 DIABETES SCREEN DIABETES SCREEN [facility] Start: 10-14-2023 [facility] Start: 07-04-2023 Behavioral Health Screening Behavioral Health Screening [facility] Start: 07-04-2023 Depression Assessment Depression Ass essment [facility] Start: 03-16-2023 Adult depression screening assessment DEPRESSION SCREENING [facility] Start: 03-16-2023 HEPATITIS C SCREENING HEPATITIS C [facility] Comment on above: Postponed from 08/15 (Declined at this time) Start: 03-16-2023 HIV SCREENING HIV SCREENING [facility] Comment on above: Postponed from 08/15 (Declined at this time) Start: 03-04-2023 Covid-19 Vaccine () Covid-19 Vaccine () [facility] Start: 03-04-2023 Influenza vaccination [facility] Start: 12-31-2022 Influenza vaccination INFLUENZA (#1) [facility] Comment on above: Postponed from 03/04 (Declined at this time) Start: 2022 Pneumococcal Vaccine : 50+ (1 of 1 - PCV) Pneumococcal Vaccine: 50+ (1 of 1 - PCV) [facility] Start: 2022 SHINGRIX VACCINE (1 of 2) SHINGRIX VACCINE (1 of 2) [facility] Start: 07-29-2022 Colonoscopy COLONOSCOPY [facility] Start: 07-29-2022 COLORECTAL CANCER SCREENING COLORECTAL CANCER SCREENING [facility] Start: 07-05-2022 Urine microalbumin profile DTAP,TDAP,TD (1 - Tdap) [facility] Comment on above: Postponed from 08/15 (Insurance Coverage) Start: 07-04-2022 DEPRESSION ASSESSMENT DEPRESSION ASS [facility] Start: 04-15-2022 End: 06-15-2022 TESTOSTERONE, FREE AND TOTAL TESTOSTERONE, FREE AND TOTAL Lab Routine Erectile dysfunction, unspecified erectile dysfunction type Expected: 04/15/2022, Expires: 06/15/2022 [facility] Work Phone: Comment on above: Expected: 04/15/2022 , Expires: 06/15/2022 Start: 03-16-2022 End: 05-16-2022 Comprehensive metabolic 2000 panel - Serum or Plasma [facility] Work Phone: Comment on above: Expected: 03/16/2022 , Expires: 05/16/2022 Start: 03-16-2022 End: 05-16-2022 Lipid 1996 panel - Serum or Plasma [facility] Work Phone: Comment on above: Expected: 03/16/2022 , Expires: 05/16/2022 Start: 03-04-2022 Influenza vaccination [facility] Start: 07-04-2021 DEPRESSION ASSESSMENT DEPRESSION ASS ESSMENT [facility] Start: 02-10-2021 COVID-19 VACCINE (3 - Booster for Moderna series) COVID-19 VACCINE (3 - Booster for Moderna series) [facility] Start: 11-05-2020 COVID-19 VACCINE (3 - Booster for Moderna series) COVID-19 VACCINE (3 - Booster for Moderna series) [facility] Start: 11-05-2020 COVID-19 VACCINE (3 - Moderna series) COVID-19 VACCINE (3 - Moderna series) [facility] Start: 09-20-2019 Adult depression screening assessment DEPRESSION SCREENING [facility] Start: 2017 COLOGUARD (FIT-DNA) COLOGUARD (FIT-D NA) [facility] Start: [address] COLONOGRAPHY [facility] Start: 2017 FECAL OCCULT BLOOD FECAL OCCULT BLOO D [facility] Start: 2017 Screening for malign ant neoplasm of colon [facility] Start: 2017 SIGMOIDOSCOPY SIGMOIDOSCOPY [facility] Start: 1991 Hepatitis B Vaccine (1 of 3 - 19+ 3-dose series) Hepatitis B Vaccine (1 of 3 - 19+ 3-dose series) [facility] Start: 1991 Urine microalbumin profile [facility] Start: 1990 Anxiety Screening Anxiety Screening [facility] Start: 1990 Depression Screening Depression Scre ening [facility] Start: 1990 HEPATITIS C SCREENING HEPATITIS C [facility] Start: 1990 Hepatitis C screening Hepatitis C [facility] Start: 1990 HIV SCREENING HIV SCREENING [facility] Start: 1990 HIV screening HIV Screening [facility] Start: 1972 HEPATITIS B (1 of 3 - 3-dose series) HEPATITIS B (1 of 3 - 3-dose series) [facility] Start: 1972 Hepatitis B Vaccine (1 of 3 - 3-dose series) Hepatitis B Vaccine (1 of 3 - 3-dose series) [facility] Hepb vaccine adult 3 dose schedule for im use HEPATITIS B VACCINE, ADULT AGE 20+, IM Immunization/Injection Routine Encounter for immunization Ordered: 03/16/2022 [facility] Work Phone: Comment on above: Ordered: 03/16/2022 Patient Education ED Hypokalemia ED Muscle Spasm [facility] Work Phone: Patient referral [facility] Work Phone: [employer] COVID-19 BIVALENT BOOSTER VACCINE, AGE 12+ YR [employer] COVID-19 BIVALENT BOOSTER VACCINE, AGE 12+ YR Immunization/Injection Routine Encounter for immunization Ordered: 03/16/2022 [facility] Work Phone: Comment on above: Ordered: 03/16/2022 Removal impacted cerumen irrigation/lvg unilat AMBULATORY EAR LAVAGE/IRRIGATION Procedures Routine Bilateral impacted cerumen Ordered: 12/28/2024 [facility] Work Phone: Comment on above: Ordered: 12/28/2024 TESTOSTERONE, FREE A ND TOTAL TESTOSTERONE, FREE AND TOTAL Lab Routine Erectile dysfunction, unspecified erectile dysfunction type 03/16/2022 3:00 PM EDT [facility] Work Phone: End: 07-05-2025 XR Chest PA and Lateral XR CHEST 2V FRONTAL/LAT Radiology Routine Acute cough 1 Occurrences starting 06/05/2024 until 07/05/2025 [facility] Comment on above: 1 Occurrences starti ng 06/05/2024 until 07/05/2025 [facility] Immunizations Immunization Date Immunization Notes Care Provider Perri mckoy 07-03-2016 influenza virus vaccine, unspecified formulation Thiago Barboza MD Work Phone: [facility] NEGATED: Highlighted row has not occurred!03-16-2022 COVID-19 vaccine, age 12+ yr, bivalent booster ([employer]) Yanet Alexis APRN.JAVA SECURITY ARCHITECT Work Phone: [facility] Work Phone: Comment on above: Deferred: Postponed NEGATED: Highlighted row has not occurred!03-16-2022 hepatitis B vaccine, adult dosage Yanet Alexis APRN.[employer]AVA SECURITY ARCHITECT Work Phone: [facility] Work Phone: Comment on above: Deferred: Postponed Payers Date Payer Category Payer Self-pay 2024 [employer] BLUE ACCE PPO [id number] 2023 Unknown [id number] 2022 Unknown [id number] 2021 Unknown [id number] 2019 Unknown [id number] 2018 Private Health Insurance [id number] 1972 Unknown [id number] Unknown [id number] Unknown [id number] Social History Date Type Detail Facility Start: 07-29-2017 End: 01-24-2025 Tobacco smoking status GAIS Never smoked tobacco [facility] Start: 07-29-2017 End: 03-16-2022 Tobacco use and exposure Smokeless tobacco non-user [facility] Start: 01-20-2021 End: 12-28-2024 Alcohol intake Current non-drinker of alcohol (finding) [facility] Start: 1970 Sex Assigned At Male [facility] Start: 11-21-2021 End: 03-16-2022 Exposure to SARS-CoV-2 (event) Not sure [facility] Start: 03-16-2022 End: 11-17-2022 History SDOH Alcohol Frequency 1 [facility] Start: 03-16-2022 End: 11-17-2022 History SDOH Alcohol Std Drinks 0 [facility] Start: 03-16-2022 End: 11-17-2022 History SDOH Social Connections Phone 5 [facility] Start: 03-16-2022 End: 11-17-2022 History SDOH Social Connections Adventism 3 [facility] Start: 03-16-2022 End: 11-17-2022 History SDOH Food Worry 2 [facility] Start: 11-17-2022 History SDOH Physica l Activity MPS 6 [facility] Start: 11-16-2022 End: 01-16-2023 History of Social function [facility] Start: 11-16-2022 End: 01-16-2023 Social connection and isolation panel [facility] Do you belong to any clubs or organizations such as shinto groups, unions, fraternal or athletic groups, or school groups? Yes [facility] Are you now , , , , never or living with a partner? [facility] How often to you hav e a drink containing alcohol? Never [facility] How many standard dr inks containing alcohol do you have on a typical day? Patient does not drink [facility] How hard is it for y ou to pay for the very basics like food, housing, medical care, and heating Hard [facility] Do you feel stress - tense, restless, nervous, or anxious, or unable to sleep at night because your mind is troubled all the time - these days [OSQ] Not at all [facility] (I/We) worried marie er (my/our) food would run out before (I/we) got money to buy more. Sometimes true [facility] The food that (I/we) bought just didn't last, and (I/we) didn't have money to get more. Never true [facility] In the past 12 month s, was there a time when you were not able to pay the mortgage or rent on time? No [facility] How hard is it for y ou to pay for the very basics like food, housing, medical care, and heating Not very hard [facility] Start: 01-15-2023 End: 10-14-2023 Tobacco smoking status NHIS Unknown if ever smoked [facility] How hard is it for y ou to pay for the very basics like food, housing, medical care, and heating Somewhat hard [facility] How hard is it for y ou to pay for the very basics like food, housing, medical care, and heating Very hard [facility] Goals Date Patient Goal Desired Activity /State Functional Status Date Assessment Result Facility 01-17-2023 Are you deaf, or do you have serious difficulty hearing Yes 01/17/2023 1:31 PM Nicolette Arreola RN Yes [facility] 01-17-2023 Are you blind, or do you have serious difficulty seeing, even when wearing glasses No 01/17/2023 1:31 PM Nicolette Arreola RN No [facility] 01-17-2023 Do you have serious difficulty walking or climbing stairs No 01/17/2023 1:31 PM Nicolette Arreola RN No [facility] 01-17-2023 Do you have difficul ty dressing or bathing No 01/17/2023 1:31 PM Nicolette Arreola RN No [facility] 01-17-2023 Because of a physica l, mental, or emotional condition, do you have difficulty doing errands alone such as visiting a physician's office or shopping No 01/17/2023 1:31 PM Nicolette Arreola RN No [facility] Mental Status Date Assessment Result Facility 01-29-2025 Cognitive function Voice/Name [facility] Work Phone: 10-14-2023 Cognitive function Voice/Name [facility] Work Phone: 01-17-2023 Because of a physica l, mental, or emotional condition, do you have serious difficulty concentrating, remembering, or making decisions No 01/17/2023 1:31 PM Nicolette Arreola RN No [facility] Clinical Notes 12-01-2021 to 01-29-2025 Jesenia Stewart MA - 12/28/2024 12:02 PM Brittnee Garcia APRN.CNP - 12/28/2024 11:46 AM EDTPatient Instructions Note Date & Type Note Facility 01-29-2025 Procedure note [facility] 01-29-2025 Procedure note [facility] 01-29-2025 [address] [facility] 01-29-2025 History and physi eduardo note [facility] 01-29-2025 Consult [address] [facility] 12-28-2024 Note HNO ID: [id number] Author: JESENIA STEWART MA Service: ? Author Type: Chief Technologist Type: Progress Notes Filed: 12/28/2024 12:34 Note Text: Ambulatory Ear Lavage Pre-treatment: Warm water Treatment: Both ears Equipment and Irrigation solution and Volume used: Single use syringe with single use irrigation tip Return flow appearance: Brown Patient tolerated procedure: yes Tympanic membrane assessment: Tympanic membrane assessed by LIP pre and post procedure [facility] 12-28-2024 History of Present illness Narrative Ambulatory Ear Lavage Pre-treatment: Warm water Treatment: Both ears Equipment and Irrigation solution and Volume used: Single use syringe with single use irrigation tip Return flow appearance: Brown Patient tolerated procedure: yes Tympanic membrane assessment: Tympanic membrane assessed by LIP pre and post procedure CC: Patient presents with: Physical: Annual Physical HPI Rita Lewis is a 54 year old male who presents today for annual exam. Recording using Knomo software for draft documentation of the visit was discussed with the patient/authorized assisted sales representative; all questions welcomed and answered. Patient/authorized assisted sales representative agreed to proceed Annual Wellness Exam: - Family history: - Mother: HTN, hyperlipidemia. - Father: CVA at age 50. - Brother: Diabetes, multiple sclerosis. - Sister: in 2022 from cardiomegaly. - Exercises by jogging 5 miles a day, 5 days a week; denies any chest or back pain, abnormal fatigue, or dizziness during exercise. - Attempts to follow a low-fat, low-salt diet, successful about 75% of the time. GERD: - Recent consultation with a planner chief; scheduled for endoscopy at the end of the month. - Prescribed omeprazole, with slight improvement in symptoms. - Reports a severe episode of dyspnea while sitting up in bed after consuming four pieces of pizza, described as terrifying. - Constant throat clearing and occasional acid taste. - Denies abdominal pain, nausea, or dysphagia. Hyperlipidemia and Elevated Blood Pressure: - No previous cardiac workup since his 20s. - Has not taken statins; hesitant due to concerns about side effects. - Inconsistent use of red yeast rice supplement. - No regular blood pressure monitoring at home. - Denies chest pain, shortness of breath, exercise intolerance, edema, palpitations, or headaches. Pre-Diabetes: - No regular blood sugar monitoring. - Denies increase thirst, hunger, or urination Cerumen Impaction: - Last ear cleaning approximately 7 months ago. - Reports a chirping noise with hearing aid, believed to be due to cerumen impaction. - Denies ear pain, sinus congestion, or ear drainage. REVIEW OF SYSTEMS General: no fevers, no chills, no night sweats, no recurrent infections, no change in appetite, no change in energy, and no significant changes in weight Respiratory: no cough, no wheezing, no shortness of breath, no hemoptysis GI: No nausea, vomiting, or diarrhea : No history of dysuria, frequency or incontinence Psych: PHQ2 and GAD2 are 0 Endocrine: no fatigue, no polyuria, no polyphagia, and no polydipsia Neurologic: No headache, weakness, numbness, tingling, dizziness, memory loss, syncope. PAST MEDICAL HISTORY Diagnosis Date Elevated cholesterol History of colonic polyps PAST SURGICAL HISTORY Procedure Laterality Date ARTHRO KNEE MEDIAL REL Right COLONOSCOPY FLX DX W/COLLJ SPEC WHEN PFRMD 08/2012 Colonoscopy COLONOSCOPY FLX DX W/COLLJ SPEC WHEN PFRMD 07/29/2017 repeat in 5 years COLONOSCOPY GEN ANES 2010 ALLERGIES Seasonal Allergies MEDICATIONS omeprazole (PRILOSEC) 40 mg capsule Take 1 capsule by mouth once daily. potassium chloride (K-TAB) 10 mEq tablet Take 1 tablet by mouth daily with breakfast. aluminum chloride (DRYSOL) 20 % external solution Apply 1 application to affected area daily at bedtime. Decrease to 1-2 times weekly once sweating improves FAMILY HISTORY Problem Relation Age of Onset Hypertension Mother other (cholesterol) Mother Stroke Father other (enlarged heart) Sister Diabetes Brother Multiple Sclerosis Brother Social History Tobacco Use Smoking status: Never Smokeless tobacco: Never Vaping Use Vaping status: Never Used Substance Use Topics Alcohol use: No Drug use: No PHYSICAL EXAM BP 140/88 Pulse 64 Resp 16 Wt 86.6 kg (191 lb) SpO2 98% BMI 29.91 kg/m General Appearance: well appearing, in no acute distress, alert Pysch: mood and affect broad and appropriate Eyes: conjunctiva pink and moist, no icterus, sclera white, non-injected Ears: external ears normal to inspection and palpation, canals clear bilateral cerumen impaction prior to irrigation. Post irrigation: Left TM normal, right still with small amount of TM Neck: Thyroid normal size and symmetric without palpable nodules, Neck supple, No adenopathy Lymph nodes: No cervical lymphadenopathy and No supraclavicular lymphadenopathy Lungs: Lungs clear to auscultation. No wheezing, rhonchi, rales. Heart: RRR without murmur, gallop, or rubs. No ectopy Abdomen: Abdomen soft, non-tender. Bowel sounds normal. No masses, organomegaly Health maintenance reviewed with patient: Hepatitis C Screening Never done HIV Screening Never done DTaP,Tdap,Td Vaccine(1 - Tdap) due on 12/28/2025 Hepatitis B Vaccine(1 of 3 - 19+ 3-dose series) due on 12/28/2025 Shingrix Vaccine(1 of 2) due on 12/28/2025 Covid-19 Vaccine( - 2023- season) due on 12/28/2025 Pneumococcal Vaccine: 50+(1 of 1 - PCV) due on 12/28/2025 Influenza Vaccine(Season Ended) due on 03/04/2025 Depression Screening due on 12/28/2025 Anxiety Screening due on 12/28/2025 Diabetes Screening due on 06/05/2027 Colorectal Cancer Screening due on 01/15/2028 Lipid Screening due on 06/05/2029 Prostate Cancer Screening Discussion due on 06/05/2029 DATA REVIEWED: No new labs Assessment/Plan 1. Annual physical exam (Z00.00) - Completed comprehensive physical examination. - Ordered lab work including lipid panel, hemoglobin A1c, fasting blood glucose, kidney and liver function tests, and apolipoprotein B and A levels. - Scheduled follow-up in 4 weeks to review blood pressure readings and lab results. 2. Gastroesophageal reflux disease, unspecified whether esophagitis present (K21.9) - Currently managed with omeprazole; patient reports some improvement in symptoms. - No episodes of dyspnea since starting medication. - No abdominal pain, nausea, or dysphagia reported. - Scheduled for endoscopy at the end of the month. 3. Prediabetes (R73.03) - Previous fasting blood glucose levels were elevated. - Ordered hemoglobin A1c and fasting blood glucose tests. - Advised patient on the importance of maintaining a healthy diet and regular exercise. 4. Elevated blood pressure reading (R03.0) - Blood pressure readings elevated during the visit. - Advised home monitoring of blood pressure; patient to record readings and bring them to the next appointment. - Emphasized the importance of a low-sodium diet. - Follow-up in 4 weeks to assess blood pressure control. 5. Mixed hyperlipidemia (E78.2) 6. Family history of early CAD (Z82.49) - Discussed genetic predisposition to hyperlipidemia and cardiovascular disease. - Patient hesitant about statin therapy; discussed alternative options such as omega-3 supplements and red yeast rice. - Ordered lipid panel and patient wanting to discuss further genetic markers and lipoprotein levels. - Referred to preventative cardiology for further evaluation and management. 7. Bilateral impacted cerumen (H61.23) - Significant cerumen impaction noted in both ears. - Performed ear irrigation; significant improvement in cerumen clearance and tolerated well - No dizziness or pain reported post-procedure. 8. Screening for depression (Z13.31) 9. Encounter for screening examination for other mental health and behavioral disorders (Z13.39) - Conducted screening for depression and anxiety; no symptoms reported. Prescription instructions reviewed with patient as applicable. Potential red flag symptoms discussed with the patient. Reviewed appropriate action plan to take if red flag symptoms occur. Patient agreeable to treatment plan. Brittnee Sheffield APRN.CNP documented in this encounter [facility] 12-28-2024 Instructions Brittnee Sheffield APRN.CNP - 12/28/2024 11:47 AM EDT - Continue omeprazole as you ve been taking it for your reflux. - Continue your potassium supplement; we ll check your potassium level with today s labs. - Discontinue tadalafil (Cialis) and the duplicate saw palmetto ( dry saw ) solution. - Fasting blood work was drawn today and includes: Cholesterol panel with apolipoprotein B and apolipoprotein A and lipoprotein(a) Fasting blood sugar/HbA1c Kidney and liver function tests - A preventive cardiology consultation has been ordered; you ll be contacted to schedule that appointment. - Check your blood pressure at home, record your readings, and bring the log to your next visit. Aim for readings under 130/80 mm Hg. - Continue your running routine (about 5 miles, 5 days per week) and maintain a low-fat diet. Focus on further reducing salt in your meals. - Return in 4 weeks for repeat blood pressure measurement and to review your lab results and cardiology plan. documented in this encounter [facility] 12-28-2024 Note HNO ID: [id number] Author: BRITTNEE SHEFFIELD APRN.CONSUELO Service: ? Author Type: Nurse Practitioner Type: Progress Notes Filed: 12/28/2024 12:34 Note Text: CC: Patient presents with: Physical: Annual Physical HPI Rita Lewis is a 54 year old male who presents today for annual exam. Recording using [employer] software for draft documentation of the visit was discussed with the patient/authorized assisted sales representative; all questions welcomed and answered. Patient/authorized assisted sales representative agreed to proceed Annual Wellness Exam: - Family history: - Mother: HTN, hyperlipidemia. - Father: CVA at age 50. - Brother: Diabetes, multiple sclerosis. - Sister: in 2022 from cardiomegaly. - Exercises by jogging 5 miles a day, 5 days a week; denies any chest or back pain, abnormal fatigue, or dizziness during exercise. - Attempts to follow a low-fat, low-salt diet, successful about 75% of the time. GERD: - Recent consultation with a planner chief; scheduled for endoscopy at the end of the month. - Prescribed omeprazole, with slight improvement in symptoms. - Reports a severe episode of dyspnea while sitting up in bed after consuming four pieces of pizza, described as terrifying. - Constant throat clearing and occasional acid taste. - Denies abdominal pain, nausea, or dysphagia. Hyperlipidemia and Elevated Blood Pressure: - No previous cardiac workup since his 20s. - Has not taken statins; hesitant due to concerns about side effects. - Inconsistent use of red yeast rice supplement. - No regular blood pressure monitoring at home. - Denies chest pain, shortness of breath, exercise intolerance, edema, palpitations, or headaches. Pre-Diabetes: - No regular blood sugar monitoring. - Denies increase thirst, hunger, or urination Cerumen Impaction: - Last ear cleaning approximately 7 months ago. - Reports a chirping noise with hearing aid, believed to be due to cerumen impaction. - Denies ear pain, sinus congestion, or ear drainage. REVIEW OF SYSTEMS General: no fevers, no chills, no night sweats, no recurrent infections, no change in appetite, no change in energy, and no significant changes in weight Respiratory: no cough, no wheezing, no shortness of breath, no hemoptysis GI: No nausea, vomiting, or diarrhea : No history of dysuria, frequency or incontinence Psych: PHQ2 and GAD2 are 0 Endocrine: no fatigue, no polyuria, no polyphagia, and no polydipsia Neurologic: No headache, weakness, numbness, tingling, dizziness, memory loss, syncope. PAST MEDICAL HISTORY Diagnosis Date Elevated cholesterol History of colonic polyps PAST SURGICAL HISTORY Procedure Laterality Date ARTHRO KNEE MEDIAL REL Right COLONOSCOPY FLX DX W/COLLJ SPEC WHEN PFRMD 08/2012 Colonoscopy COLONOSCOPY FLX DX W/COLLJ SPEC WHEN PFRMD 07/29/2017 repeat in 5 years COLONOSCOPY GEN ANES 2010 ALLERGIES Seasonal Allergies MEDICATIONS omeprazole (PRILOSEC) 40 mg capsule Take 1 capsule by mouth once daily. potassium chloride (K-TAB) 10 mEq tablet Take 1 tablet by mouth daily with breakfast. aluminum chloride (DRYSOL) 20 % external solution Apply 1 application to affected area daily at bedtime. Decrease to 1-2 times weekly once sweating improves FAMILY HISTORY Problem Relation Age of Onset Hypertension Mother other (cholesterol) Mother Stroke Father other (enlarged heart) Sister Diabetes Brother Multiple Sclerosis Brother Social History Tobacco Use Smoking status: Never Smokeless tobacco: Never Vaping Use Vaping status: Never Used Substance Use Topics Alcohol use: No Drug use: No PHYSICAL EXAM BP 140/88 Pulse 64 Resp 16 Wt 86.6 kg (191 lb) SpO2 98% BMI 29.91 kg/m? General Appearance: well appearing, in no acute distress, alert Pysch: mood and affect broad and appropriate Eyes: conjunctiva pink and moist, no icterus, sclera white, non-injected Ears: external ears normal to inspection and palpation, canals clear bilateral cerumen impaction prior to irrigation. Post irrigation: Left TM normal, right still with small amount of TM Neck: Thyroid normal size and symmetric without palpable nodules, Neck supple, No adenopathy Lymph nodes: No cervical lymphadenopathy and No supraclavicular lymphadenopathy Lungs: Lungs clear to auscultation. No wheezing, rhonchi, rales. Heart: RRR without murmur, gallop, or rubs. No ectopy Abdomen: Abdomen soft, non-tender. Bowel sounds normal. No masses, organomegaly Health maintenance reviewed with patient: Hepatitis C Screening Never done HIV Screening Never done DTaP,Tdap,Td Vaccine(1 - Tdap) due on 12/28/2025 Hepatitis B Vaccine(1 of 3 - 19+ 3-dose series) due on 12/28/2025 Shingrix Vaccine(1 of 2) due on 12/28/2025 Covid-19 Vaccine( - season) due on 12/28/2025 Pneumococcal Vaccine: 50+(1 of 1 - PCV) due on 12/28/2025 Influenza Vaccine(Season Ended) due on 03/04/2025 Depression Screening due o (more content not included)... [facility] 12-05-2024 Evaluation note Diagnosis Onset Date Resolution Gastroesophageal reflux disease noneactive December 05, 2024 3:55pm GERD (gastroesophageal reflux disease) acute January 29, 2025 12:29pm [facility] Work Phone: [phone]) 231-357203-31-2025 Telephone encounter Note* Telephone Encounter - Matt Rashid RN - 10/01/2024 6:39 PM EDT calling for patient. Consent obtained to speak with regarding care. states patient was seen by dermatology Dr. Hai Kelly with [facility] and requesting additional medication for itching. directed to call [facility] for further assistance. Patient denies any new or worsening symptoms of which a provider is not aware:Yes . [facility]03-31-2025 Miscellaneous Notes* Telephone Encounter - Matt Rashid RN - 10/01/2024 6:39 PM EDT calling for patient. Consent obtained to speak with regarding care. states patient was seen by dermatology Dr. Hai Kelly with [facility] and requesting additional medication for itching. directed to call [facility] for further assistance. Patient denies any new or worsening symptoms of which a provider is not aware:Yes . [facility] History of Present illness Narrative* Mani Welch MD - 09/26/2024 3:45 PM EDT Est Patient PROCEDURE: BOTOX VISIT HYPERHIDROSIS Auth expiration: 10/17/2024 Rita is a 54 year old male that returns today for a botox injection to his bilateral palms. Previous injection was 5 months ago. Hyperhidrosis Disease Severity Scale: Score 3 (Severe): My sweating is barely tolerable and frequently interferes with my daily activities. There have been no reported changes in his health since last visit. PATIENT would like same dose as last time as that greatly improved his QOL SURGEON Dr. Mani Welch UNIVERSAL PROTOCOL / SAFETY CHECKLIST Procedure to be performed: Botox injection Sign in Communication: Completed Time Out: Team Confirms the Correct Patient, Correct Procedure, Correct Site, Correct Position (if applicable). Time: 314 Sign Out Discussion: Completed TODAY'S PROCEDURE: 200 units of Botox were reconstituted with 4 cc of normal saline. The Botox used was from Lot Number [id number], [id number] with an expiration date of 09/2026, 04/2026 The area was cleaned and prepped in a sterile fashion. SITE 1.) 75 units of Botox injected intradermally into the right palm SITE 2.) 75 units of Botox injected intradermally into the left palm PLAN: 1. Patient will return in 3-6 mos for future injections. 2. Post-operative instructions were reviewed with patient in written and verbal form. The documentation for this note was completed by Mandie Jackson RN acting as scribe for Mani Welch MD. September 26, 2024 3:11 PM. I agree with the Chief Complaint, ROS, and Past Histories independently gathered by the clinical behaviour support teacher and the remaining scribed note accurately describes my personal service to the patient. Mani Welch MD documented [facility]25 NoteHNO ID: [id number] Author: MANI WELCH MD Service: ? Author Type: Physician Type: Progress Notes Filed: 09/26/2024 15:45 Note Text: Est Patient PROCEDURE: BOTOX VISIT HYPERHIDROSIS Auth expiration: 10/17/2024 Rita is a 54 year old male that returns today for a botox injection to his bilateral palms. Previous injection was 5 months ago. Hyperhidrosis Disease Severity Scale: Score 3 (Severe): My sweating is barely tolerable and frequently interferes with my daily activities. There have been no reported changes in his health since last visit. PATIENT would like same dose as last time as that greatly improved his QOL SURGEON Dr. Mani Welch UNIVERSAL PROTOCOL / SAFETY CHECKLIST Procedure to be performed: Botox injection Sign in Communication: Completed Time Out: Team Confirms the Correct Patient, Correct Procedure, Correct Site, Correct Position (if applicable). Time: 314 Sign Out Discussion: Completed TODAY'S PROCEDURE: 200 units of Botox were reconstituted with 4 cc of normal saline. The Botox used was from Lot Number [id number], [id number] with an expiration date of 09/2026, 04/2026 The area was cleaned and prepped in a sterile fashion. SITE 1.) 75 units of Botox injected intradermally into the right palm SITE 2.) 75 units of Botox injected intradermally into the left palm PLAN: 1. Patient will return in 3-6 mos for future injections. 2. Post-operative instructions were reviewed with patient in written and verbal form. The documentation for this note was completed by Mandie Jackson RN acting as scribe for Mani Welch MD. September 26, 2024 3:11 PM. I agree with the Chief Complaint, ROS, and Past Histories independently gathered by the clinical behaviour support teacher and the remaining scribed note accurately describes my personal service to the patient. Mani Welch, [facility]12-10-2024 Telephone encounter Note* Telephone Encounter - Michael Mehta LPN - 06/12/2024 2:14 PM EST Spoke with pt and information listed below given. Pt verbalizes understanding. Michael Mehta LPN [facility]12-10-2024 Miscellaneous Notes* Telephone Encounter - Michael Mehta LPN - 06/12/2024 2:14 PM EST Spoke with pt and information listed below given. Pt verbalizes understanding. Michael Mehta LPN * Telephone Encounter - Tierra Amos LPN - 06/12/2024 1:00 PM EST left message for patient to call the office back and speak with triage nurse. Tierra Amos LPN * Telephone Encounter - Gunnar Lopez PA-C - 06/12/2024 8:05 AM EST Please let patient know that his cholesterol remain elevated, total 257 (<200) and LDL 191 (ideally < 120). His A1C was 5.7, just into the pre-diabetic range (fasting glucose was 112, (<100)). The rest of his labs looked good including PSA and thyroid lab. He can try the diet modifications we discussed-low cholesterol, low fat, limiting sugary drinks/sweets. Trial of Red Yeast Rice extract. We can repeat in 3 months, if remain elevated, would advise considering starting a cholesterol lowering medication. Gunnar Lopez PA-C 06/12/2024 [facility] Telephone encounter Note * Telephone Encounter - iTerra Amos LPN - 06/12/2024 1:00 PM EST left message for patient to call the office back and speak with triage nurse. Tierra Amos LPN [facility]12-10-2024 Telephone encounter Note* Telephone Encounter - Gunnar Lopez PA-C - 06/12/2024 8:05 AM EST Please let patient know that his cholesterol remain elevated, total 257 (<200) and LDL 191 (ideally < 120). His A1C was 5.7, just into the pre-diabetic range (fasting glucose was 112, (<100)). The rest of his labs looked good including PSA and thyroid lab. He can try the diet modifications we discussed-low cholesterol, low fat, limiting sugary drinks/sweets. Trial of Red Yeast Rice extract. We can repeat in 3 months, if remain elevated, would advise considering starting a cholesterol lowering medication. Gunnar Lopez PA-C 06/12/2024 [facility] Work Phone: 1(297) 341-653712-03-2024 Instructions* Patient Instructions* Gunnar Lopez PA-C - 06/05/2024 8:42 AM EST Red yeast rice extract Fish oil capsules Probiotic Good quality brands for any supplements: Pure Encapsulations, Yoseph, Life Extensions, Garden of Life. Magnesium - aim for at least 500 mg/day. May divide or take at night. - constipation --> citrate - no constipation -- > mag glycinate or malate or mixed amino acid chelate - HERNANDEZ or anxiety --> mag threonate or taurate (helpful for arrythmia) - GI absorption --> epsom salt bath Symptoms of low magnesium: - muscle cramps, twitches, tightness or pain - trouble with sleep - Irritability - sensitivity to loud noises - Anxiety - ADD - Palpitations - Angina - Constipation - Headaches/migraines - Fibromyalgia, - Chonic fatigue - Asthma - kidney stones - osteoporosis - menstrual cramps, - irritable bowel syndrome documented in this encounter[facility]24 NoteHNO ID: [id number] Author: GUNNAR LOPEZ PA-C Service: ? Author Type: Physician Bed Placement Coordinator Type: Progress Notes Filed: 06/05/2024 08:50 Note Text: SUBJECTIVE: This is a 53 year old that is here today for Complaint(s) of cough x 2 weeks, but overall cough is significantly improving. 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 Denies fever/chills, SOB, wheezing, chest pain, night sweats, hemoptysis, weight loss. Normal appetite and energy level. Overall feels like he is improving. Mr. Lewis was last seen 6 months ago. Family History of prostate CA-maternal Uncle. Last PSA checked in 2022, WNL. No personal history of HTN, DM. Not some muscle aches at time, intermittent and not consistent. He is running regularly, admits to not stretching. No leg swelling. Hyperlipidemia. Has never been on any medications previously. Admits that he consumes a lot of red meat, cheese, sugary drinks/soda. He does run almost daily. + FH hyperlipidemia denies chest pain, SOB, PATHAK, His most recent lipid panels are: Cholesterol, Total (mg/dL) Date Value 11/09/2023 258 11/17/2022 284 10/31/2020 268 07/03/2016 242 HDL Cholesterol (mg/dL) Date Value 11/09/2023 36 11/17/2022 40 10/31/2020 35 07/03/2016 37 LDL Cholesterol (mg/dL) Date Value 11/09/2023 198 11/17/2022 222 10/31/2020 204 07/03/2016 185 Triglyceride (mg/dL) Date Value 11/09/2023 119 11/17/2022 109 10/31/2020 143 07/03/2016 98 Health Maintenance Declines immunizations Up to date on colonoscopy. Past Medical, Surgical, Family and Social Histories reviewed and [facility] Current Medications and allergies reviewed. PAST MEDICAL HISTORY Diagnosis Date Elevated cholesterol History of colonic polyps PAST SURGICAL HISTORY Procedure Laterality Date ARTHRO KNEE MEDIAL REL Right COLONOSCOPY FLX DX W/COLLJ SPEC WHEN PFRMD 08/2012 Colonoscopy COLONOSCOPY FLX DX W/COLLJ SPEC WHEN PFRMD 07/29/2017 repeat in 5 years COLONOSCOPY GEN ANES 2010 ACTIVE PROBLEM LIST Mixed Hyperlipidemia Special Screening for Malignant Neoplasms, Colon Small Bowel Obstruction (Hcc) Nausea AND Vomiting Sbo (Small Bowel Obstruction) (Hcc) ALLERGIES: Seasonal Allergies Current Outpatient Medications Medication Sig tretinoin 0.05 % gel Apply a pea-sized amount to whole face at night as tolerated. Start every other night and advance as tolerated. aluminum chloride (DRYSOL) 20 % external solution Apply to dry underarms at bedtime and wash off the next morning. Do not apply to wounds or broken, irritated, or recently shaved skin Tadalafil (CIALIS) 5 mg tablet Take 1 tablet by mouth as needed. Take prior to sexual activity. potassium chloride (K-TAB) 10 mEq tablet Take 1 tablet by mouth daily with breakfast. aluminum chloride (DRYSOL) 20 % external solution Apply 1 application to affected area daily at bedtime. Decrease to 1-2 times weekly once sweating improves No current facility-administered medications for this visit. FAMILY HISTORY Problem Relation Age of Onset Hypertension Mother other (cholesterol) Mother Stroke Father Diabetes Brother Multiple Sclerosis Brother PHYSICAL EXAM: BP 130/64 (BP Site: Left Arm, BP Position: Sitting, BP Cuff Size: Large Adult) Pulse 64 Temp 36.4 ?C (97.6 ?F) Resp 12 Ht 170.2 cm (5' 7) Wt 91 kg (200 lb 9.9 oz) SpO2 97% BMI 31.42 kg/m? BMI 31.42 kg/(m2) General appearance: Alert, cooperative, pleasant, in no acute distress Head: Normocephalic, atraumatic Eyes: conjunctiva/corneas normal, PERRL Oropharynx: moist without lesions, teeth in good repair Neck: supple and no JVD Heart: regular rate and rhythm, without murmur Lungs: clear to auscultation, without rales or wheeze, good air exchange Abdomen:soft, nondistended, nontender, no hepatosplenomegaly or masses ASSESSMENT/PLAN: 1. Mixed hyperlipidemia - ICD9: 272.2, ICD10: E78.2 (primary diagnosis) - Uncontrolled - Counseled on healthy diet and regular exercise We discussed plan for attempt with lifestyle modifications for 3 months if cholesterol elevated on today's labs. Add fish oil capsules and red yeast rice extract. If repeat labs in 3 months remain elevated, will consider a cholesterol lowering medication. - Discussed need for and benefit of weight loss. BMI 31.42 kg/(m2) - Follow up in 6 months, sooner should any other issues arise. - LIPID PANEL BASIC - THYROID STIMULATING HORMONE 2. Elevated glucose - ICD9: 790.29, ICD10: R73.09 Check labs Discussed eliminating sugary drinks, limiting sweet, simple carbohydrates. - HEMOGLOBIN A1C - COMPREHENSIVE METABOLIC PANEL - THYROID STIMULATING HORMONE - COMPLETE BLOOD COUNT AND DIFFERENTIAL 3. Screening for prostate cancer - ICD9: V76.44, ICD10: Z12.5 - C (more content not included)...[facility]12-03-2024 History of Present illness Narrative* Gunnar Lopez PA-C - 06/05/2024 8:18 AM EST SUBJECTIVE: This is a 53 year old that is here today for Complaint(s) of cough x 2 weeks, but overall cough is significantly improving. 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 Denies fever/chills, SOB, wheezing, chest pain, night sweats, hemoptysis, weight loss. Normal appetite and energy level. Overall feels like he is improving. Mr. Lewis was last seen 6 months ago. Family History of prostate CA-maternal Uncle. Last PSA checked in 2022, WNL. No personal history of HTN, DM. Not some muscle aches at time, intermittent and not consistent. He is running regularly, admits to not stretching. No leg swelling. Hyperlipidemia. Has never been on any medications previously. Admits that he consumes a lot of red meat, cheese, sugary drinks/soda. He does run almost daily. + FH hyperlipidemia denies chest pain, SOB, PATHAK, His most recent lipid panels are: Cholesterol, Total (mg/dL) Date Value 11/09/2023 258 11/17/2022 284 10/31/2020 268 07/03/2016 242 HDL Cholesterol (mg/dL) Date Value 11/09/2023 36 11/17/2022 40 10/31/2020 35 07/03/2016 37 LDL Cholesterol (mg/dL) Date Value 11/09/2023 198 11/17/2022 222 10/31/2020 204 07/03/2016 185 Triglyceride (mg/dL) Date Value 11/09/2023 119 11/17/2022 109 10/31/2020 143 07/03/2016 98 Health Maintenance Declines immunizations Up to date on colonoscopy. Past Medical, Surgical, Family and Social Histories reviewed and [facility] today [facility]. Current Medications and allergies reviewed. PAST MEDICAL HISTORY Diagnosis Date Elevated cholesterol History of colonic polyps PAST SURGICAL HISTORY Procedure Laterality Date ARTHRO KNEE MEDIAL REL Right COLONOSCOPY FLX DX W/COLLJ SPEC WHEN PFRMD 08/2012 Colonoscopy COLONOSCOPY FLX DX W/COLLJ SPEC WHEN PFRMD 07/29/2017 repeat in 5 years COLONOSCOPY GEN ANES 2010 ACTIVE PROBLEM LIST Mixed Hyperlipidemia Special Screening for Malignant Neoplasms, Colon Small Bowel Obstruction (Hcc) Nausea & Vomiting Sbo (Small Bowel Obstruction) (Hcc) ALLERGIES: Seasonal Allergies Current Outpatient Medications Medication Sig tretinoin 0.05 % gel Apply a pea-sized amount to whole face at night as tolerated. Start every other night and advance as tolerated. aluminum chloride (DRYSOL) 20 % external solution Apply to dry underarms at bedtime and wash off the next morning. Do not apply to wounds or broken, irritated, or recently shaved skin Tadalafil (CIALIS) 5 mg tablet Take 1 tablet by mouth as needed. Take prior to sexual activity. potassium chloride (K-TAB) 10 mEq tablet Take 1 tablet by mouth daily with breakfast. aluminum chloride (DRYSOL) 20 % external solution Apply 1 application to affected area daily at bedtime. Decrease to 1-2 times weekly once sweating improves No current facility-administered medications for this visit. FAMILY HISTORY Problem Relation Age of Onset Hypertension Mother other (cholesterol) Mother Stroke Father Diabetes Brother Multiple Sclerosis Brother PHYSICAL EXAM: BP 130/64 (BP Site: Left Arm, BP Position: Sitting, BP Cuff Size: Large Adult) Pulse 64 Temp 36.4 C (97.6 F) Resp 12 Ht 170.2 cm (5' 7) Wt 91 kg (200 lb 9.9 oz) SpO2 97% BMI 31.42 kg/mBMI 31.42 kg/(m^2) General appearance: Alert, cooperative, pleasant, in no acute distress Head: Normocephalic, atraumatic Eyes: conjunctiva/corneas normal, PERRL Oropharynx: moist without lesions, teeth in good repair Neck: supple and no JVD Heart: regular rate and rhythm, without murmur Lungs: clear to auscultation, without rales or wheeze, good air exchange Abdomen:soft, nondistended, nontender, no hepatosplenomegaly or masses ASSESSMENT/PLAN: 1. Mixed hyperlipidemia - ICD9: 272.2, ICD10: E78.2 (primary diagnosis) - Uncontrolled - Counseled on healthy diet and regular exercise We discussed plan for attempt with lifestyle modifications for 3 months if cholesterol elevated on today's labs. Add fish oil capsules and red yeast rice extract. If repeat labs in 3 months remain elevated, will consider a cholesterol lowering medication. - Discussed need for and benefit of weight loss. BMI 31.42 kg/(m^2) - Follow up in 6 months, sooner should any other issues arise. - LIPID PANEL BASIC - THYROID STIMULATING HORMONE 2. Elevated glucose - ICD9: 790.29, ICD10: R73.09 Check labs Discussed eliminating sugary drinks, limiting sweet, simple carbohydrates. - HEMOGLOBIN A1C - COMPREHENSIVE METABOLIC PANEL - THYROID STIMULATING HORMONE - COMPLETE BLOOD COUNT AND DIFFERENTIAL 3. Screening for prostate cancer - ICD9: V76.44, ICD10: Z12.5 - Counseled on healthy diet and regular exercise - PSA/PROSTATE SPECIFIC ANTIGEN SCREENING 4. Acute cough - ICD9: 786.2, ICD10: R05.1 Overall improving, if not resolving in 7-10 days, advise CXR, order F/u sooner if worsening symptoms. - XR CHEST 2V FRONTAL/LAT The patient indicates understanding of these issues and agrees with the plan. Gunnar Lopez PA-C documented in this encounterUniversity Hospitals [facility]10-21-2024 Telephone encounter Note * Telephone Encounter - Mani Welch MD - 04/23/2024 1:53 PM EDT Pls notify patient of issue below and to start differin OTC gel instead [facility]10-21-2024 Miscellaneous Notes* Telephone Encounter - Mani Welch MD - 04/23/2024 1:53 PM EDT Pls notify patient of issue below and to start differin OTC gel instead * Telephone Encounter - Cheyenne Cabrera RN - 04/23/2024 1:44 PM EDT Pharmacy escripts requesting the following refill: Pharmacy comment: Product Backordered/Unavailable:PRESCRIBED PRODUCT NOT IN STOCK. PLEASE CONSIDER THE COST-EFFECTIVE POTENTIAL ALTERNATIVE(S) LISTED AND EVALUATE IF APPROPRIATE FOR YOUR PATIENT'S INDICATION AND TREATMENT GOALS. Requested Prescriptions Pending Prescriptions Disp Refills tretinoin (RETIN-A) 0.05 % cream [Pharmacy Med Name: TRETINOIN 0.05% CREAM] 45 g 0 Sig: Please specify directions, refills and quantity Please review and advise. Cheyenne Cabrera RN documented in this encounterUniversity Hospitals [facility]10-21-2024 Telephone encounter Note * Telephone Encounter - Cheyenne Cabrera RN - 04/23/2024 1:44 PM EDT Pharmacy escripts requesting the following refill: Pharmacy comment: Product Backordered/Unavailable:PRESCRIBED PRODUCT NOT IN STOCK. PLEASE CONSIDER THE COST-EFFECTIVE POTENTIAL ALTERNATIVE(S) LISTED AND EVALUATE IF APPROPRIATE FOR YOUR PATIENT'S INDICATION AND TREATMENT GOALS. Requested Prescriptions Pending Prescriptions Disp Refills tretinoin (RETIN-A) 0.05 % cream [Pharmacy Med Name: TRETINOIN 0.05% CREAM] 45 g 0 Sig: Please specify directions, refills and quantity Please review and advise. Cheyenne Cabrera RN [facility]10-21-[facility] Telephone encounter Note* Telephone Encounter - Cheyenne Cabrera RN - 04/23/2024 11:22 AM EDT Pharmacy comment: Alternative Requested:NEED PA FOR MORE THAN 20 GRMAM TUBES IN 30 DAY S. Cheyenne Cabrera RN [facility]10-21-2024 Miscellaneous Notes* Telephone Encounter - Cheyenne Cabrera RN - 04/23/2024 11:22 AM EDT Pharmacy comment: Alternative Requested:NEED PA FOR MORE THAN 20 GRMAM TUBES IN 30 DAY S. Cheyenne Cabrera RN documented in this encounterUniversity Hospitals Parma [facility] Center10-09-2024 Instructions* Patient Instructions* Marian Peralta RN - 04/11/2024 2:13 PM EDT Post-Operative Guidelines for Neurotoxin Injections Post-Operative Instructions Botox and Dysport are both Neurotoxins. The Neurotoxin that you received today is . Please follow these guidelines after a Neurotoxin injection. Care for Injection Sites: 1. Avoid massaging or rubbing the treated area for 24 hours. 2. No strenuous activity or bending over for the first 24 hours. 3. Move your facial muscles approximately 10 times an hour until bedtime. 4. Do not lie flat for at least 4-5 hours. 5. Neurotoxins should start to work within one week (5-7 days before you notice a difference). Peakresults should be seen in two weeks. 6. Avoid Aspirin or other anti-inflammatory medications for at least 48 hours. 7. Some small red spots may be visible on the skin after treatment, as well as minor bruising. Bruising normally resolves within a couple of days to a couple of weeks. Swelling may last 1-2 days. 8. You may apply cosmetics, moisturizers, or lotion but do not do anything that causes pressure or discomfort. For any questions or concerns, please call the office at [phone] and ask to speak to a nurse in Dermatology. documented in this encounterUniversity Hospitals Par[facility] Center10-09-2024 History of Present illness Narrative* Mani Welch MD - 04/11/2024 2:00 PM EDT PROCEDURE: BOTOX VISIT HYPERHIDROSIS Rita is a 53 year old male that returns today for a botox injection to his bilateral palms. Previous injection was 6 months ago. -retin-a and drysol refills needed -noticing improvement even when between treatments and prior wore off Hyperhidrosis Disease Severity Scale: Score 3 (Severe): My sweating is barely tolerable and frequently interferes with my daily activities. There have been no reported changes in his health since last visit. PATIENT would like same dose as last time as that greatly improved his QOL SURGEON Dr. Mani Welch UNIVERSAL PROTOCOL / SAFETY CHECKLIST Procedure to be performed: Botox injection Sign in Communication: Completed Time Out: Team Confirms the Correct Patient, Correct Procedure, Correct Site, Correct Position (if applicable). Time: 1500 Sign Out Discussion: Completed TODAY'S PROCEDURE: 200 units of Botox were reconstituted with 4 cc of normal saline. The Botox used was from Lot Number [id number], with an expiration date of 06/2026 The area was cleaned and prepped in a sterile fashion. SITE 1.) 75 units of Botox injected intradermally into the right palm SITE 2.) 75 units of Botox injected intradermally into the left palm Patient requested lower dose be injected today PLAN: 1. Patient will return in 3-6 mos for future injections. 2. Post-operative instructions were reviewed with patient in written and verbal form. I agree with the Chief Complaint, ROS, and Past Histories independently gathered by the clinical behaviour support teacher and the remaining scribed note accurately describes my personal service to the patient. I agree with the Chief Complaint, ROS, and Past Histories independently gathered by the clinical behaviour support teacher and the remaining scribed note accurately describes my personal service to the patient. Marian Welch documented in this encounterUniversity Hospitals [facility] Center10-09-2024 NoteHNO ID: [id number] Author: MANI WELCH MD Service: ? Author Type: Physician Type: Progress Notes Filed: 04/11/2024 15:28 Note Text: PROCEDURE: BOTOX VISIT HYPERHIDROSIS Rita is a 53 year old male that returns today for a botox injection to his bilateral palms. Previous injection was 6 months ago. -retin-a and drysol refills needed -noticing improvement even when between treatments and prior wore off Hyperhidrosis Disease Severity Scale: Score 3 (Severe): My sweating is barely tolerable and frequently interferes with my daily activities. There have been no reported changes in his health since last visit. PATIENT would like same dose as last time as that greatly improved his QOL SURGEON Dr. Mani Welch UNIVERSAL PROTOCOL / SAFETY CHECKLIST Procedure to be performed: Botox injection Sign in Communication: Completed Time Out: Team Confirms the Correct Patient, Correct Procedure, Correct Site, Correct Position (if applicable). Time: 1500 Sign Out Discussion: Completed TODAY'S PROCEDURE: 200 units of Botox were reconstituted with 4 cc of normal saline. The Botox used was from Lot Number [id number], with an expiration date of 06/2026 The area was cleaned and prepped in a sterile fashion. SITE 1.) 75 units of Botox injected intradermally into the right palm SITE 2.) 75 units of Botox injected intradermally into the left palm Patient requested lower dose be injected today PLAN: 1. Patient will return in 3-6 mos for future injections. 2. Post-operative instructions were reviewed with patient in written and verbal form. I agree with the Chief Complaint, ROS, and Past Histories independently gathered by the clinical behaviour support teacher and the remaining scribed note accurately describes my personal service to the patient. I agree with the Chief Complaint, ROS, and Past Histories independently gathered by the clinical behaviour support teacher and the remaining scribed note accurately describes my personal service to the patient. [facility] Telephone encounter Note* Telephone Encounter - Fozia Novka LPN - 11/14/2023 2:34 PM EDT Electronic PA rec'd and completed for cialis. This was denied as it is not a covered benefit. Pt notified via my chart. [facility]05-13-[facility]24 Miscellaneous Notes* Telephone Encounter - Fozia Novak LPN - 11/14/2023 2:34 PM EDT Electronic PA rec'd and completed for cialis. This was denied as it is not a covered benefit. Pt notified via my chart. documented in this encounterUniversity Hospitals [facility]05-13-2024 Telephone encounter Note * Telephone Encounter - Brittnee Sheffield APRN.CNP - 11/14/2023 12:23 PM EDT Noted. Brittnee Sheffield APRN.CNP [facility]05-13-2024 Miscellaneous Notes* Telephone Encounter - Brittnee Sheffield APRN.CNP - 11/14/2023 12:23 PM EDT Noted. Brittnee Sheffield APRN.CNP * Telephone Encounter - Amelia Shaffer RN - 11/14/2023 11:43 AM EDT Patient calls and notified of results and providers instructions. Patient verbalizes understanding and still declines statin therapy at this time. Amelia Shaffer RN * Telephone Encounter - Raquel Junior RN - 11/11/2023 2:50 PM EDT Called and left a voicemail for the Patient to call back and ask for a nurse to receive the providers message. Raquel Junior RN * Telephone Encounter - Brittnee Sheffield APRN.CNP - 11/11/2023 9:30 AM EDT Cholesterol levels still high. I recommend once again statin therapy as before to decrease his riskfor heart attack and stroke. He has declined this before. Is this something her would consider thistime? Thank you Brittnee Sheffield APRN.CONSUELO documented in this encounterUniversity Hospitals [facility] Center05-13-2024 Telephone encounter Note * Telephone Encounter - Amelia Shaffer RN - 11/14/2023 11:43 AM EDT Patient calls and notified of results and providers instructions. Patient verbalizes understanding and still declines statin therapy at this time. Amelia Shaffer RN [facility]05-10-2024 Telephone encounter Note* Telephone Encounter - Raquel Junior RN - 11/11/2023 2:50 PM EDT Called and left a voicemail for the Patient to call back and ask for a nurse to receive the providers message. Raquel Junior RN [facility]05-10-2024 Telephone encounter Note* Telephone Encounter - Brittnee Sheffield APRN.CNP - 11/11/2023 9:30 AM EDT Cholesterol levels still high. I recommend once again statin therapy as before to decrease his riskfor heart attack and stroke. He has declined this before. Is this something her would consider thistime? Thank you Brittnee Sheffield APRN.CNP [facility]05-08-2024 History of Present illness Narrative* Brittnee Sheffield APRN.CNP - 11/09/2023 3:05 PM EDT CC: Patient presents with: Follow Up HPI Rita Lewis is a 53 year old male who presents today for follow up. Has not been seen in a year and had recent ER visit. Had right hand cramping so went to [place] ER on 10/13. Was concerned he was having a stroke. Told it was due to low potassium and started on PO potassium Potassium was 3.3. No further spasms. Denies numbness, weakness, confusion, or any other further muscle cramping. ED: Uses average of weekly. Has been well controlled with the cialis for over 10 years Denies difficulty or pain with urinating. Also has difficulty losing weight. Exercises 5 days a week with jogging and tries to eat healthy but not always. REVIEW OF SYSTEMS General: no fevers, no chills, no night sweats, no recurrent infections, no change in appetite, no change in energy, and no significant changes in weight Respiratory: no cough, no wheezing, no shortness of breath, no hemoptysis Cardiovascular: no chest pain, no chest pressure, no palpitations, and no swelling Endocrine: no fatigue, no polyuria, no polyphagia, and no polydipsia Neurologic: No headache, weakness, numbness, dizziness, memory loss, syncope. PAST MEDICAL HISTORY Diagnosis Date Elevated cholesterol History of colonic polyps PAST SURGICAL HISTORY Procedure Laterality Date ARTHRO KNEE MEDIAL REL Right COLONOSCOPY FLX DX W/COLLJ SPEC WHEN PFRMD 08/2012 Colonoscopy COLONOSCOPY FLX DX W/COLLJ SPEC WHEN PFRMD 07/29/2017 repeat in 5 years COLONOSCOPY GEN ANES 2010 ALLERGIES Seasonal Allergies MEDICATIONS potassium chloride (K-TAB) 10 mEq tablet Take 1 tablet by mouth daily with breakfast. aluminum chloride (DRYSOL) 20 % external solution Apply 1 application to affected area daily at bedtime. Decrease to 1-2 times weekly once sweating improves Tadalafil (CIALIS) 5 mg tablet Take 1 tablet by mouth as needed. Take prior to sexual activity. tretinoin (RETIN-A) 0.05 % cream Apply pea sized amount to full face nightly. May start every othernight and advance to nightly as tolerated. FAMILY HISTORY Problem Relation Age of Onset Hypertension Mother other (cholesterol) Mother Stroke Father Diabetes Brother Multiple Sclerosis Brother Social History Tobacco Use Smoking status: Never Smokeless tobacco: Never Substance Use Topics Alcohol use: No Drug use: No PHYSICAL EXAM BP 124/80 Pulse (!) 57 Temp 37.1 C (98.7 F) Resp 12 Ht 170.2 cm (5' 7) Wt 88.5 kg (195 lb) SpO2 98% BMI 30.54 kg/m General Appearance: well appearing, in no acute distress, alert Pysch: mood and affect broad and appropriate Eyes: conjunctiva pink and moist, no icterus, sclera white, non-injected Neck: Thyroid normal size and symmetric without palpable nodules, Neck supple, No adenopathy Lymph nodes: No cervical lymphadenopathy and No supraclavicular lymphadenopathy Lungs: Lungs clear to auscultation. No wheezing, rhonchi, rales. Heart: RRR without murmur, gallop, or rubs. No ectopy BUE Extremities: No deformities, edema, skin discoloration, clubbing or cyanosis. Good capillary refill. Health maintenance reviewed with patient: Hepatitis C Screening Never done HIV Screening Never done Hepatitis B Vaccine(1 of 3 - 19+ 3-dose series) Never done Shingrix Vaccine(1 of 2) Never done Covid-19 Vaccine( - 2022- season) due on 03/04/2023 Behavioral Health Screening Never done DTaP,Tdap,Td Vaccine(1 - Tdap) due on 11/18/2023 Influenza Vaccine(Season Ended) due on 03/04/2024 Diabetes Screening due on 01/17/2026 Lipid Screening due on 11/18/2027 Colorectal Cancer Screening due on 01/15/2028 DATA REVIEWED: Outside chart from [facility] reviewed. ASSESSMENT/PLAN: 1. Erectile dysfunction, unspecified erectile dysfunction type - ICD9: 607.84, ICD10: N52.9 (primary diagnosis) Follow up depending on lab results - TADALAFIL 5 MG TABLET - TESTOSTERONE, FREE AND TOTAL - THYROID STIMULATING HORMONE 2. Hypokalemia - ICD9: 276.8, ICD10: E87.6 Currently on supplement, if stable will need to continue supplement - COMPREHENSIVE METABOLIC PANEL 3. Hand cramp - ICD9: 729.82, ICD10: R25.2 Resolved - per ER possible result of low potassium. 4. Class 1 obesity with body mass index (BMI) of 30.0 to 30.9 in adult, unspecified obesity type, unspecified whether serious comorbidity present - ICD9: 278.00, V85.30, ICD10: E66.9, Z68.30 Weight increasing - Behavioral intervention - Counseled on healthy diet and regular exercise - THYROID STIMULATING HORMONE 5. Annual physical exam - ICD9: V70.0, ICD10: Z00.00 - full annual exam not completed but blood work ordered - COMPLETE BLOOD COUNT - COMPREHENSIVE METABOLIC PANEL - LIPID PANEL BASIC Brittnee Sheffield APRN.CNP Prescription instructions reviewed with patient as applicable. Potential red flag symptoms discussed with the patient. Reviewed appropriate action plan to take if red flag symptoms occur. Patient agreeable to treatment plan. Brittnee Sheffield APRN.CNP documented in this encounterUniversity Hospitals [facility]04-22-2024 Telephone encounter Note * Telephone Encounter - Aida Washburn OCCA - 10/24/2023 10:45 AM EDT TC to patient who verbalized understanding of below. WILLIS Lundberg [facility]04-22-2024 Miscellaneous Notes* Telephone Encounter - Aida Washbrun OCCA - 10/24/2023 10:45 AM EDT TC to patient who verbalized understanding of below. WILLIS Lundberg * Telephone Encounter - Angelique Odonnell APRN.CNP - 10/24/2023 10:38 AM EDT I sent in 30 days with x1 refill, please let patient know. * Telephone Encounter - Tierra Bradley LPN - 10/18/2023 9:09 AM EDT Patient's arm was numb was the reason he went to ER. Labs were low with his potassium. Patient has been identified by name and date of : No Spouse phones for refill(s): Requested Prescriptions Pending Prescriptions Disp Refills potassium chloride (K-TAB) 10 mEq tablet 30 tablet 2 Sig: Take 1 tablet by mouth daily with breakfast. Date of last office visit in primary care: 11/17/2022 Date of next office visit in primary care: 11/09/2023 for ER follow up Please advise. Thank you. Tierra Bradley LPN. * Telephone Encounter - Roxane Jaimes - 10/17/2023 3:43 PM EDT Pt began taking Potassium 10 meq 1 x daily after the ER visit. Spouse would like to know if this issomething Brittnee Sheffield would be able to prescribe now so he can continue it until his appointment on November 08. documented in this encounterUniversity Hospitals [facility] Center04-22-2024 Telephone encounter Note * Telephone Encounter - Angelique Odonnell APRN.CNP - 10/24/2023 10:38 AM EDT I sent in 30 days with x1 refill, please let patient know. [facility]04-17-[facility] History of Present illness Narrative* Mani Welch MD - 10/19/2023 2:00 PM EDT PROCEDURE: BOTOX VISIT HYPERHIDROSIS Rita is a 53 year old male that returns today for a botox injection to his bilateral palms. Previous injection was 8 months ago. Hyperhidrosis Disease Severity Scale: Score 3 (Severe): My sweating is barely tolerable and frequently interferes with my daily activities. There have been no reported changes in his health since last visit. PATIENT would like same dose as last time as that greatly improved his QOL SURGEON Dr. Mani Welch UNIVERSAL PROTOCOL / SAFETY CHECKLIST Procedure to be performed: Botox injection Sign in Communication: Completed Time Out: Team Confirms the Correct Patient, Correct Procedure, Correct Site, Correct Position (if applicable). Time: 1425 Sign Out Discussion: Completed TODAY'S PROCEDURE: 200 units of Botox were reconstituted with 4 cc of normal saline. The Botox used was from Lot Number [id number], with an expiration date of 11/26. The area was cleaned and prepped in a sterile fashion. SITE 1.) 100 units of Botox injected intradermally into the right palm SITE 2.) 100 units of Botox injected intradermally into the left palm PLAN: 1. Patient will return in 3-6 mos for future injections. 2. Post-operative instructions were reviewed with patient in written and verbal form. The documentation for this note was completed by Chayo Velazquez RN acting as scribe for Mani Welch MD. October 19, 2023 2:47 PM. I agree with the Chief Complaint, ROS, and Past Histories independently gathered by the clinical behaviour support teacher and the remaining scribed note accurately describes my personal service to the patient. Dr. Mani Welch 10/19/23 documented in this encounterUniversity Hospitals [facility] Center04-16-2024 Telephone encounter Note * Telephone Encounter - Tierra Bradley LPN - 10/18/2023 9:09 AM EDT Patient's arm was numb was the reason he went to ER. Labs were low with his potassium. Patient has been identified by name and date of : No Spouse phones for refill(s): Requested Prescriptions Pending Prescriptions Disp Refills potassium chloride (K-TAB) 10 mEq tablet 30 tablet 2 Sig: Take 1 tablet by mouth daily with breakfast. Date of last office visit in primary care: 11/17/2022 Date of next office visit in primary care: 11/09/2023 for ER follow up Please advise. Thank you. Tierra Bradley LPN. [facility] Work Phone: [phone]) 425-874604-15-2024 Telephone encounter Note* Telephone Encounter - Roxane Jaimes - 10/17/2023 3:43 PM EDT Pt began taking Potassium 10 meq 1 x daily after the ER visit. Spouse would like to know if this issomething Brittnee Sheffield would be able to prescribe now so he can continue it until his appointment on November 08. [facility] Work Phone: 1(893) 137-238604-03-2024 Miscellaneous Notes* Telephone Encounter - Mani Welch MD - 10/05/2023 11:52 AM EDT Called phone number and peer to peer review is initiated. I provided a call back number for the reviewer to reach me Mani Welch MD * Telephone Encounter - Leander Rubio - 10/04/2023 3:21 PM EDT Images from the original note were not included. ==PHARMACY TEAM== PEER TO PEER/APPEAL REQUESTED Dept. Notification for DERMATOLOGY Reason for Denial: Servicing Location Tax ID: [id number] Sent to: Telephone encounter to MANI WELCH P2P or Appeal: P2P Diagnosis & Dx Code Submitted: L74.510 (ICD-10-CM) - Hyperhidrosis of axilla Drug & CPT/HCPCS code submitted: Botox [id number] Dose & Frequency Submitted: 200 units every 90 days 1 year Contact Name (if applicable): NA How to complete (verbal or written): Verbal Phone # to call (if verbal): [phone] Timeframe to complete/Call to Schedule: NA Pending Case/Reference #: [id number] Letter scanned in chart (Y/N): Yes Comments: N/A documented in this encounterUniversity Hospitals Parma [facility] Center03-20-2024 Miscellaneous Notes* Telephone Encounter - Shelly Gardner - 09/21/2023 3:04 PM EDT Called and left voicemail message for patient to call back. Need to find out if botox is helping him documented in this encounterUniversity Hospitals Parma [facility] Center03-19-2024 Miscellaneous Notes* Telephone Encounter - Mani Welch MD - 09/20/2023 3:49 PM EDT 200 Units to the bilateral palms every 90 days Mani Welch MD * Telephone Encounter - Leander Rubio - 09/20/2023 2:07 PM EDT === PHARMACY TEAM ==== ADDITIONAL INFORMATION NEEDED/REQUESTED Case Submitted: No Request Type: Provider Date of Service: 10/19/2023 Additional Information Needed: Can you please confirm the dosing and frequency you are requesting for the Botox Request from [employer] by: N/A Email Sent to: Telephone encounter to MANI WELCH Gay, Jennifer Requested Clinicals/Information Sent: N/A documented in this encounterUniversity Hospitals Parma [facility] Center08-02-2023 Instructions* Patient Instructions* Supriya Mike RN - 02/02/2023 7:46 AM EDT NEUROTOXIN (Botox, Dysport) POST CARE INSTRUCTIONS Side effects can include: - Bruising at the sites of injection. This generally fades in 3 to 7 days. Care for Injection Sites: - The raised areas noticed immediately after injection will resolve after 1 hour (max) - Do not lie flat for 30 minutes after treatment - Avoid massaging or rubbing the treated area for 24 hours - You can resume normal activity after 24 hours; please note that if you opt to exercise the day oftreatment there is an increased risk of delayed bruising - Please note that it takes up to 14 days to see the full effect of treatment - The average duration of effect of the treatment is 3-4 months If you have questions or concerns please contact our office or via Bizimplyhart documented in this encounterUniversity Hospitals Parma Medical Center08-02-2023 History of Present illness Narrative* Mani Welch MD - 02/02/2023 7:45 AM EDT EST PATIENT BOTOX INITIAL VISIT: Rita is a 52 year old male who presents today for first botox injection. CC: Hyperhidrosis: Disease Severity Scale Score 4 (Severe: My sweating is intolerable and always interferes with my daily activities. PLAN: Botox injections to the bilateral palms Risks, benefits, alternatives and personnel required for Botox injections reviewed with patient. Ptverbalizes understanding and wishes to proceed. UNIVERSAL PROTOCOL / SAFETY CHECKLIST Procedure to be Performed: Botox injections Sign In: A Moment of CARE was completed. Personnel directly involved with the procedure wore the appropriate PPE (Personal Protective Equipment). Patient/Surrogate Stated/Verified: PATIENT VERIFIED(optional for EMERGENT procedures): Patient name, Date of , Relevant allergies, and The intended procedure Time Out Communication: Intended patient and procedure match the source documents. Consent documented and matches the intended procedure. Relevant labs, photos, and/or imaging studies have been reviewed. Correct side/site marked and visible. Fire risk assessed and interventions discussed. Sign Out: SIGN OUT (optional for EMERGENT procedures): No specimen collected. All instruments, equipment, possible retained foreign bodies accounted for. Post-procedure follow-up management communicated and Plan of Care Visit completed when applicable. TODAY'S PROCEDURE: SITE 1.) 100 units of Botox injected intradermally into the right palm SITE 2.) 100 units of Botox injected intradermally into the left palm Concentration: 4:1 Lot #: [id number] Exp Date: 11/2025 Post procedure care instructions reviewed with patient, understanding verbalized. Patient to returnin 5-6 months to receive another injection. Sign Out Discussion: Completed The documentation for this note was completed by Supriya Rashid, RN acting as scribe for Mani Welch MD. February 02, 2023 7:45 AM. I agree with the Chief Complaint, ROS, and Past Histories independently gathered by the clinical behaviour support teacher and the remaining scribed note accurately describes my personal service to the patient. Mani Welch MD February 02, 2023 documented in this encounterUniversity Hospitals Parma Medical Center07-19-2023 History of Present illness Narrative* Quiana Moses, JOSE MANUEL - 01/19/2023 11:27 AM EDT TRANSITIONAL CARE MANAGEMENT (TCM) COMMUNITY MONITORING PROGRAM Provider Action/FYI: Second Attempt: Second attempt to outreach patient for initial hospital discharge. No answer. Left message to return call at [phone] SUMMARY: Discharge Network Status: In-Network Discharge Pt discharged from [facility] on 01/17/2023. Admitted for: SBO Contact made with patient: No - 2nd unsuccessful attempt - end outreach and close encounter Outreach ended Patricia KEVIN, arc welder Spouter [phone] * Quiana Moses, JOSE MANUEL - 01/18/2023 12:00 PM EDT TCM Home Visit Referral Source of Stratification: [facility] Hospital Admission Status: Discharged Readmission Risk Score: 6 JEROD Score: 2 Patient meets program referral criteria: No Patient does not qualify for High Risk TCM Home Visit program due to: Discharged home, does not meet program criteria TRANSITIONAL CARE MANAGEMENT (TCM) COMMUNITY MONITORING PROGRAM Provider Action/FYI: Attempted outreach to patient for hospital discharge initial outreach. No answer, left a voicemail to return my call at [phone]. Will attempt to outreach to patient again later today or tomorrrow if no return call from patient. SUMMARY: Discharge Network Status: In-Network Discharge Pt discharged from [facility] on 01/17/2023. Admitted for: SBO Contact made with patient: No - next outreach attempt will be on next day Outreach ended Quiana Davila RN January 18, 2023 12:00 PM documented in this encounterUniversity Hospitals Parma Medical Center07-16-2023 NoteHNO ID: [id number] Author: Tammy Foreman MD Service: General Surgery Author Type: Physician Type: Progress Notes Filed: 01/16/2023 9:40 AM Note Text: INPATIENT PROGRESS NOTE SERVICE DATE: 01/16/2023 SERVICE TIME: 7:47 PRIMARY SERVICE: general surgery Subjective CHIEF COMPLAINT: abnormal CT scan from [facility] HPI: 52 y/o male who underwent colonoscopy by Dr. Barboza on January 14, presented to [facility] ED on evening of January 15 with acute onset of abdominal pain. He underwent CT scan (without oral contrast) and there is question of small bowel obstruction. Normal lab studies - normal WBC, no left shift of differential. Patient has been passing flatus this entire time. He did feel abdominal bloating at the time, but this has resolved, he states. This morning, he denies abdominal pain. He has been passing flatus. NG tube placed last night - plan will be to d/c this morning and start clears. If tolerates, will d/c to home Current Facility-Administered Medications Medication Dose Route Frequency NaCl 0.9% iv flush bag 20 mL INTRAVENOUS PRN NaCl 0.9% iv infusion 100 mL/hr INTRAVENOUS CONTINUOUS ondansetron orally disintegrating 4 mg tab(s) (ZOFRAN ODT) 4 mg ORAL q 6 H PRN Or ondansetron (PF) 4 mg injection (ZOFRAN) 4 mg INTRAVENOUS q 6 H PRN phenol 1 [place] (CHLORASEPTIC) 1 [place] MUCOUS MEMBRANE (TOPICAL MOUTH AND THROAT) q 2 H PRN Objective PHYSICAL EXAM: BP 129/68 Pulse 61 Temp (Src) 98.2 (Oral) Resp 18 Ht 5' 7 (1.70m) Wt 186 lb 8.2 oz (84.6kg) SpO2 99% BMI 29.20 kg/(m2). O2 Therapy: Room Air Head: Normal cephalic, atraumatic Eyes: pupils are equally round, sclera are clear/anicteric Neck is supple with no tracheal deviation Respiratory: Normal respiratory excursion and pattern. Abdominal exam: benign, protuberant but patient states that he has no abdominal bloating (this is his baseline) Extremities: no clubbing, cyanosis or edema. Neuro: non focal Psych: normal mood Assessment/Plan Principal Problem: SBO (small bowel obstruction) (HCC) (POA: Yes) Assessment AND Plan: resolved plan will be to d/c NG tube this morning and start clears. If tolerates, will d/c to home Active Problems: Nausea AND vomiting (POA: Yes) Assessment AND Plan: resolved Resolved Problems: * No resolved hospital problems. * Medication and Non-Pharmacologic VTE Prophylaxis/Anticoagulants VTE Prophylaxis: VTE prophylaxis appropriate SIGNATURE: Tammy Foreman MD PATIENT NAME: Rita Lewis DATE: January 16, 2023 TIME: 9:38 [facility] [id number] NoteHNO ID: [id number] Author: Adele Rodríguez RN Service: Nursing Author Type: Registered Nurse Type: Nursing Progress Note Filed: 01/15/2023 8:06 PM Note Text: 1999 paged VENTILATOR SPECIALIST regarding admission [facility]07-14-2023 Miscellaneous Notes* Telephone Encounter - Sunshine Abarca RN - 01/14/2023 5:34 PM EDT Patient calling regarding General Surgery. Conferenced to [employer] [facility] [( ) - ] to speak with provider youth accommodation support worker for Dr. Barboza at phone number ([facility], General Surgery- - ). Patient advised to GO TO THE EMERGENCY ROOM OR CALL 911 IF: * You develop any new symptoms * Your condition worsens * You are concerned or anxious about your condition for any other reason while you wait to speak with the provider youth accommodation support worker. documented in this encounterUniversity Hospitals Parma Medical Center07-14-2023 Miscellaneous Notes* Telephone Encounter - Calista Pabon RN - 01/14/2023 5:22 PM EDT Patient calling regarding having an upset stomach and vomiting x 1 after his colonoscopy today. Patient states since vomiting he is feeling better. Conferenced to [facility] [place] tongue and groove machine operator, Renetta, to speak with provider youth accommodation support worker for Dr. Barboza. GO TO THE EMERGENCY ROOM OR CALL 911 IF: * You develop any new symptoms * Your condition worsens * You are concerned or anxious about your condition for any other reason. If you have any questions, you can call Nurse shuttle preparation supervisor back. documented in this encounterUniversity Hospitals Parma Medical Center07-14-2023 Miscellaneous Notes* Telephone Encounter - Kalee Lebron RN - 01/14/2023 5:10 PM EDT called to report one emesis for the patient who had a colonoscopy today. No other symptoms that is aware. She is not with the patient. Tried to three way patient in on the line but no answer. in on her way home to the patient andwill be home soon. Advised her to have him call back this evening soon for assistance and she agreed. NOC closing was given to the for the patient GO TO THE EMERGENCY ROOM OR CALL 911 IF: * You develop any new symptoms * Your condition worsens * You are concerned or anxious about your condition for any other reason. If you have any questions, you can call Nurse shuttle preparation supervisor back. documented in this encounterUniversity Hospitals Parma Medical Center07-14-2023 History and physical note * Thiago Barboza MD - 01/14/2023 11:30 AM EDT HA Lewis is a 52 year old male who presents today for annual physical exam. Exercise: works out regularly 5 times per week with running about 5 miles Diet: Watches salt intake, does report eating a lot of red meat, drinks pop regularly but has cut back. Caffeine: drinks daily between coffee or pop, but cut back some. Water intake: not a lot , mostly with exercise otherwise not much. Bilateral toes fungal infection, chronic issue, has been seen previously by dermatology. 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 Would like oral treatment again. REVIEW OF SYSTEMS General: no fevers, no chills, no night sweats, no recurrent infections, no change in appetite, no change in energy, and no significant changes in weight HEENT: no frequent or significant headaches, no visual changes, no nose bleeds, no sinus or nasal problems; wears hearing aids but he has lost them and needs to get an appt for that. Does frequently get wax buildup Neck: no lumps, no pain , and no swelling Respiratory: no cough, no wheezing, no shortness of breath, no hemoptysis Cardiovascular: no chest pain, no chest pressure, no palpitations, and no swelling GI: No nausea, vomiting, or diarrhea : Negative - does want checked for prostate issues, uncle had prostate ca. He denies any voiding issues. Musculoskeletal: Negative for joint pain or swelling, back pain or muscle pain Skin: Negative for lesions, rash, and itching. Does have fungal infections of both great toes, has been seen by dermatology before Psych: Negative for sleep disturbance, mood disorder and recent psychosocial stressors Hematologic/Lymph: Negative for prolonged bleeding, bruising easily or swollen nodes Endocrine: no fatigue, no weight gain, no weight loss, no hair loss, no dry skin, no cold intolerance, no heat intolerance, no neck pain/pressure, no polyuria, no polyphagia, and no polydipsia Neurologic: No headache, weakness, numbness, tingling, neck stiffness, tremor, vertigo, dizziness, memory loss, syncope. See HPI PAST MEDICAL HISTORY PAST MEDICAL HISTORY Diagnosis Date Elevated cholesterol History of colonic polyps PAST SURGICAL HISTORY PAST SURGICAL HISTORY Procedure Laterality Date ARTHRO KNEE MEDIAL REL Right COLONOSCOPY FLX DX W/COLLJ SPEC WHEN PFRMD 08/2012 Colonoscopy COLONOSCOPY FLX DX W/COLLJ SPEC WHEN PFRMD 07/29/2017 repeat in 5 years COLONOSCOPY GEN ANES 2010 ALLERGIES Seasonal Allergies MEDICATIONS CURRENT MEDICATIONS Tadalafil (CIALIS) 5 mg tablet Take 1 tablet by mouth as needed. Take prior to sexual activity. benzonatate (TESSALON PERLES) 100 mg capsule Take 2 capsules by mouth three times daily as needed. aluminum chloride (DRYSOL) 20 % external solution Apply 1 application to affected area daily at bedtime. Decrease to 1-2 times weekly once sweating improves tretinoin (RETIN-A) 0.05 % cream Apply pea sized amount to full face nightly. May start every othernight and advance to nightly as tolerated. FAMILY HISTORY FAMILY HISTORY Problem Relation Age of Onset Hypertension Mother other (cholesterol) Mother Stroke Father Diabetes Brother Multiple Sclerosis Brother SOCIAL HISTORY Social History Tobacco Use Smoking status: Never Smokeless tobacco: Never Substance Use Topics Alcohol use: No Drug use: No PHYSICAL EXAM BP 118/76 Pulse 60 Temp 37 C (98.6 F) (Temporal) Resp 16 Wt 88.5 kg (195 lb) SpO2 100% BMI 30.54 kg/m General Appearance: well appearing, in no acute distress, alert Pysch: mood and affect broad and appropriate Skin: Skin color, texture, turgor normal for age; Ears: Bilateral cerumen impaction. Post irrigation - Bilateral canals clear, TMs without redness orbulging Eyes: conjunctiva pink and moist, no icterus, sclera white, non-injected Neck: Thyroid normal size and symmetric without palpable nodules, Neck supple, No adenopathy Lymph nodes: No cervical lymphadenopathy and No supraclavicular lymphadenopathy Lungs: Lungs clear to auscultation. No wheezing, rhonchi, rales. Heart: RRR without murmur, gallop, or rubs. No ectopy Abdomen: Abdomen soft, non-tender. Bowel sounds normal. No masses, organomegaly Extremities: No deformities, edema, skin discoloration, clubbing or cyanosis. Good capillary refill. Bilateral 1st and second toenails with dark thickened nails and right great toe with black line toside of nail. Line does not extend into skin. Neurological: Gait normal. Negative findings: speech normal, mental status intact HEPATITIS B(1 of 3 - 3-dose series) Never done COVID-19 VACCINE(3 - Booster for Moderna series) due on 11/05/2020 DEPRESSION ASSESSMENT Never done COLORECTAL CANCER SCREENING due on 07/29/2022 SHINGRIX VACCINE(1 of 2) Never done HEPATITIS C SCREENING due on 03/16/2023 HIV SCREENING due on 03/16/2023 DTAP,TDAP,TD(1 - Tdap) due on 11/18/2023 INFLUENZA(Season Ended) due on 03/04/2023 DIABETES SCREEN due on 03/16/2025 LIPID SCREEN due on 03/16/2027 ASSESSMENT/PLAN: 1. Annual physical exam - ICD9: V70.0, ICD10: Z00.00 (primary diagnosis) - Counseled on healthy diet and regular exercise - Discussed need for and benefit of weight loss. BMI 30.54 kg/(m^2) - Colorectal cancer screening recommended - agrees to Colonoscopy - Depression screening tool completed and reviewed with patient. Based on score and interview, patient is not at risk for depression and recommended no further intervention at this time. - Follow up for annual exam in one year - LIPID PANEL BASIC - CBC - COMP METABOLIC PANEL - PSA/PROSTSPECAG SCRN - HGB A1C 2. Toenail fungus - ICD9: 110.1, ICD10: B35.1 - awaiting liver enzymes then will order oral antifungal - discussed with the black stripe on toe nail to watch closely to make sure there is improvement and it does not start to grow or extend into the skin. - Have dermatology evaluate great toe at next appointment. 3. Cerumen in auditory canal on examination - ICD9: 380.4, ICD10: H61.20 - successful and tolerated well. - REMOVAL OF IMPACTED CERUMEN - INSTRUMENTATION 4. Prostate cancer screening - ICD9: V76.44, ICD10: Z12.5 - no urinary concerns at this time - PSA/PROSTSPECAG SCRN 5. Special screening for malignant neoplasms, colon - ICD9: V76.51, ICD10: Z12.11 -ok for open access - COLONOSCOPY SCREENING - PEG 3350 240 GRAM-ELECTROLYTES 22.72 GRAM-6.72 G-5.84 G POWDR FOR SOLN 6. Elevated glucose - ICD9: 790.29, ICD10: R73.09 - HGB A1C Prescription instructions reviewed with patient as applicable. Potential red flag symptoms discussed with the patient. Reviewed appropriate action plan to take if red flag symptoms occur. Patient agreeable to treatment plan. Brittnee Sheffield, RAQUEL.EMBROIDERER UPDATED HISTORY AND PHYSICAL EXAMINATION SERVICE DATE: 01/14/2023 SERVICE TIME: 10:27 AM PHYSICAL EXAM MUST BE COMPLETED ON ADMISSION The History and Physical (completed in the past 30 days) has been reviewed and the patient has beenexamined. The contents accurately reflect the patient's condition with the following additions or revisions since the H&P was completed. Examination indicates no changes. This H&P can be found in the attached. SIGNATURE: Thiago Barboza III, MD PATIENT NAME: Rita Lewis DATE: January 14, 2023 TIME: 10:27 AM documented in this encounterUniversity Hospitals Parma Medical Center07-14-2023 Nurse Note* Jerrica More, RN - 01/14/2023 11:00 AM EDT Pt. arrived in left lateral position. Resting, abdomen firm/ warm blanket applied to abdomen. SR upx 2, call light in reach. Jerrica More, RN documented in this encounterUniversity Hospitals Parma Medical Center06-27-2023 Miscellaneous Notes* Telephone Encounter - Noni Matta - 12/28/2022 5:[address] Camarillo - Patient should be scheduled with Dr. King Ibarra as Dr. Camarillo does not actively see for facial cosmetic surgery. * Telephone Encounter - Ros Ocampo - 12/28/2022 10:27 AM EDT Left VM for patient to call back to schedule consult with Dr. Camarillo. * Telephone Encounter - Ros Ocampo - 12/28/2022 10:27 AM EDT ----- Message from Marcelo Pandya sent at 12/24/2022 1:54 PM EDT ----- [facility], Can you please schedule this patient with for a Rhinoplasty consult. Thank you, Marcelo documented in this [facility]05-15-2023 Miscellaneous Notes* Telephone Encounter - Tierra Delgadillo LPN - 11/15/2022 8:45 AM EDT Patient has been identified by name and date of : No Patient phones for refill(s): Requested Prescriptions Pending Prescriptions Disp Refills Tadalafil (CIALIS) 5 mg tablet 30 tablet 1 Sig: Take 1 tablet by mouth as needed. Take prior to sexual activity. Date of last office visit in primary care: 03/16/22 Last 2 Encounter Wt Readings: Date: Wt: 07/21/2022 87.7 kg (193 lb 6.4 oz) 03/16/2022 87.1 kg (192 lb) Previous labs/tests for medication: Not applicable Please advise. Thank you. Tierra Delgadillo LPN documented in this encounterUniversity Hospitals Parma Medical Center04-12-2023 Instructions* Patient Instructions* Mandie Jackson RN - 10/13/2022 1:53 PM EDT NEUROTOXIN (Botox, Dysport) POST CARE INSTRUCTIONS -It is ok to apply makeup to treated areas after 1 hour, be gentle to the treated areas -The raised areas noticed immediately after injection will resolve after 1 hour (max) -Do not lie flat for 30 minutes after treatment -You can resume normal activity after 24 hours; please note that if you opt to exercise the day of treatment there is an increased risk of delayed bruising -Please note that it takes up to 14 days to see the full effect of treatment -The average duration of effect of the treatment is 3-4 months If you have questions or concerns please contact the office where you were treated or via Bizimplyhart documented in this encounterUniversity Hospitals Parma Medical Center04-12-2023 History of Present illness Narrative* Mani Welch MD - 10/13/2022 1:45 PM EDT October 13, 2022 Established patient LV 12/01/2021 CHIEF COMPLAINT: Hyperhidrosis HISTORY OF PRESENT ILLNESS: 1. Hyperhidrosis Location: hands Duration: 25+ years Current treatment: Drysol (works for bilateral underarms but not hands) Past treatments: glycopyrrolate- didn't tolerate well and didn't experience benefit DERM HISTORY: History of skin cancer: no History of actinic keratoses: no History of chronic skin disease : no FAMILY HISTORY: History of melanoma: no History of chronic skin disease: hidradenitis suppurativa - dad, daughter PAST MEDICAL HISTORY: PAST MEDICAL HISTORY Diagnosis Date Elevated cholesterol REVIEW OF SYSTEMS: Constitutional: Denies fever, chills, unintentional weight loss. Skin as per HPI Medications Current Outpatient Medications Medication Sig benzonatate (TESSALON PERLES) 100 mg capsule Take 2 capsules by mouth three times daily as needed. Tadalafil (CIALIS) 5 mg tablet Take 1 tablet by mouth as needed. Take prior to sexual activity. aluminum chloride (DRYSOL) 20 % external solution Apply 1 application to affected area daily at bedtime. Decrease to 1-2 times weekly once sweating improves tretinoin (RETIN-A) 0.05 % cream Apply pea sized amount to full face nightly. May start every othernight and advance to nightly as tolerated. No current facility-administered medications for this visit. PHYSICAL EXAM: General: awake, alert, no acute distress Skin: Skin exam was performed today including the following: bilateral hands. Pertinent findings include: - no abnormalities ASSESSMENT & PLAN: #Hyperhidrosis, severity scale 4- patient has failed topical drysol and glycopyrollate - Explained that hyperhidrosis is a disorder characterized by the excessive production of sweat in response to heat or emotional stimuli, and not related to underlying disease. It is a poorly understood disorder, and the clinical spectrum ranges from a mild increase over the normal level of physiologic sweating to an extreme, debilitating expression of the disease. Such extreme sweating may be socially embarrassing and occupationally disabling. Discussed chronic, waxing/waning nature. -Patient has failed topical drysol and glycopyrrolate - Discussed what to expect with Botox injections (i.e., pain, possible muscle weakness, etc). Discussed patient will need to return every 3-5 months for Botox injections. - Will submit to insurance for coverage. Request for insurance coverage: ICD 10 Primary Diagnosis: Hyperhidrosis L74.510 - 519 ICD 10 Secondary Diagnosis: Changes in skin texture (desquamation, induration, scaling) R23.4 and hyperhidrosis CPT code: Injections: Botox: palms / soles: 86509 Appointment time needed: 30 mins Return to clinic: pending insurance coverage The documentation for this note was completed by Mandie Jackson RN acting as scribe for Mani Welch MD. October 13, 2022 1:48 PM. I agree with the Chief Complaint, ROS, and Past Histories independently gathered by the clinical behaviour support teacher and the remaining scribed note accurately describes my personal service to the patient. Mani Welch MD documented in this encounterUniversity Hospitals Parma Medical Center09-13-2022 Instructions* Patient Instructions* Yanet Alexis APRN.CNS - 03/16/2022 2:33 PM EDT Check to see if your insurance covers Tdap and shingles vaccine and what location to get the vaccine - usually best covered at your local pharmacy where you get prescriptions filled documented in this encounterUniversity Hospitals Parma Medical Center09-13-2022 History of Present illness Narrative* Yanet Alexis APRN.CNS - 03/16/2022 2:00 PM EDT SUBJECTIVE: HEPATITIS B(1 of 3 - 3-dose series) Never done HEPATITIS C SCREENING Never done HIV SCREENING Never done DTAP,TDAP,TD(1 - Tdap) Never done COVID-19 VACCINE(3 - Booster for Moderna series) due on 02/10/2021 HPI Rita Lewis is a 51 year old male. PMH significant for ACTIVE PROBLEM LIST Mixed Hyperlipidemia PCP: Yazmin Campbell MD Last seen 10/2020. Followed by [facility] for hyperhidrosis. Taking tadalafil for ED Urologist: no current Hyperlipidemia. Mr. Lewis reports doing well. Not currently taking medication His most recent lipid panels are: Cholesterol, Total (mg/dL) Date Value 10/31/2020 268 07/03/2016 242 HDL Cholesterol (mg/dL) Date Value 10/31/2020 35 07/03/2016 37 LDL Cholesterol (mg/dL) Date Value 10/31/2020 204 07/03/2016 185 Triglyceride (mg/dL) Date Value 10/31/2020 143 07/03/2016 98 Notes cerumen bilateral ears at times, has debrox at home. Using hearing aids. Review of Systems Objective BP 130/80 Pulse (!) 56 Resp 16 Wt 87.1 kg (192 lb) BMI 30.07 kg/m Physical Exam Vitals and nursing note reviewed. Constitutional: Appearance: Normal appearance. HENT: Head: Normocephalic and atraumatic. Comments: small amount cerumen debris R, larger amount left Eyes: Conjunctiva/sclera: Conjunctivae normal. Cardiovascular: Rate and Rhythm: Normal rate and regular rhythm. Pulmonary: Effort: Pulmonary effort is normal. Breath sounds: Normal breath sounds. Skin: General: Skin is warm and dry. Neurological: General: No focal deficit present. Mental Status: He is alert and oriented to person, place, and time. ALLERGIES Allergen Reactions Seasonal Allergies Unknown aluminum chloride (DRYSOL) 20 % external solution Apply 1 application to affected area daily at bedtime. Decrease to 1-2 times weekly once sweating improves tretinoin (RETIN-A) 0.05 % cream Apply pea sized amount to full face nightly. May start every othernight and advance to nightly as tolerated. Tadalafil (CIALIS) 5 mg tablet Take 1 tablet by mouth as needed. Take prior to sexual activity. PAST MEDICAL HISTORY Diagnosis Date Elevated cholesterol Social History Tobacco Use Smoking status: Never Smokeless tobacco: Never Substance Use Topics Alcohol use: No Drug use: No ASSESSMENT/PLAN: 1. Erectile dysfunction, unspecified erectile dysfunction type - ICD9: 607.84, ICD10: N52.9 (primary diagnosis) Stable, currently controlled, continue to monitor. Consider urology appt, statin medication if indicated with recheck lipids - LIPID PANEL BASIC - COMP METABOLIC PANEL - CONSULT TO UROLOGY - TADALAFIL 5 MG TABLET - TESTOSTERONE, FREE AND TOTAL 2. Encounter for immunization - ICD9: V03.89, ICD10: Z23 - HEPATITIS B VACCINE, ADULT AGE 20+, IM - [employer] COVID-19 BIVALENT BOOSTER VACCINE, AGE 12+ YR 3. Special screening examination for viral disease - ICD9: V73.99, ICD10: Z11.59 declined 4. Screening for HIV (human immunodeficiency virus) - ICD9: V73.89, ICD10: Z11.4 declined 5. Blood in stool - ICD9: 578.1, ICD10: K92.1 6. Colon cancer screening - ICD9: V76.51, ICD10: Z12.11 Notes small amount blood in stool, in toilet and on TP. Due for 5 yr follow up colonoscopy 07/2022 - CONSULT TO GENERAL SURGERY 7. Excessive cerumen in both ear canals - ICD9: 380.4, ICD10: H61.23 Recommend debrox x 5 days, may follow up for irrigation if needed Keep PCP visit scheduled. Yanet Alexis APRN.CNS Medical Decision Making: Problems: Moderate: 2+ stable chronic illnesses Data: Unique test(s) ordered: 3+ Risk: Moderate: Drug management Medical Decision Making Level: 4 - Moderate documented in this encounterUniversity [facility]08-05-2022 Miscellaneous Notes* Telephone Encounter - Michael Mehta LPN - 02/05/2022 8:19 AM EDT Patient has been identified by name and date of : Yes Patient phones for refill(s): Pending Prescriptions Disp Refills TADALAFIL 5 MG TABLET 30 tablet 1 Sig: Take 1 tablet by mouth as needed. Take prior to sexual activity. DERRICK: No Date of last office visit in primary care: 10/31/20 next apt 04/06/22 Last 2 Encounter Wt Readings: Date: Wt: 10/31/2020 89.4 kg (197 lb) 10/05/2020 91.2 kg (201 lb) Previous labs/tests for medication: Not applicable Please advise. Thank you. Michael Mehta LPN documented in this encounterUniversity Hospitals [facility]08-05-2022 Miscellaneous Notes* Telephone Encounter - Brittnee Sheffield APRN.CNP - 02/05/2022 7:44 AM EDT Patient has not been seen in 16 months. If he needs this now, he will need to have an earlier appointment prior to his scheduled April visit. Thank you Brittnee Sheffield APRN.CNP * Telephone Encounter - Gloria Romero RN - 02/04/2022 3:50 PM EDT Patient has been identified by name and date of : Yes Patient phones for refill(s): Pending Prescriptions Disp Refills TADALAFIL 5 MG TABLET 30 tablet 1 Sig: Take 1 tablet by mouth as needed. Take prior to sexual activity. DERRICK: No Date of last office visit in primary care: 10/04/20, NOV: 04/06/22 Last 2 Encounter Wt Readings: Date: Wt: 10/31/2020 89.4 kg (197 lb) 10/05/2020 91.2 kg (201 lb) Previous labs/tests for medication: Blood Pressure: BUN (mg/dL) Date Value 10/31/2020 11 Sodium (mmol/L) Date Value 10/31/2020 139 Last 1 Encounter BP Readings: Date: BP: 10/31/2020 130/64 Please advise. Thank you. Gloria Romero RN documented in this encounterUniversity Hospitals [facility]08-05-2022 Miscellaneous Notes* Telephone Encounter - Lina Umanzor RN - 02/05/2022 7:14 AM EDT Patient's request for medication is as follows: Pending Prescriptions Disp Refills ALUMINUM CHLORIDE 20 % TOPICAL SOLUTION 35 mL 5 Sig: Apply 1 application to affected area daily at bedtime. Decrease to 1-2 times weekly once sweating improves DERRICK: No Prescription(s) as above. Please process accordingly. Lina Umanzor RN documented in this encounterUniversity Hospitals [facility]05-31-2022 History of Present illness Narrative* Eusebia Stroud MD - 12/01/2021 1:20 PM EDT Established Patient MICAELA: 01/20/2021 Chief Complaint: Hyperhidrosis History of Present Ilness: Rita Leiws is a 51 year old male Patient is here for: 1) Hyperhidrosis Location: bilateral armpits and bilateral hands Duration: present for 27 years Symptoms: excessive sweating Current treatment: drysol (only thing that helped) needs refill today and retin- a refill Past treatments: drysol, glycopyrrolate Pertinent Past Medical History: History of skin cancer or atypical nevi No Specialty Problems None Pertinent Family medical history: History of melanoma No Review of Systems: Constitutional: Denies fever, chills, night sweats, unintentional weight loss. Skin per HPI. No other new/concerning skin growth. Physical Exam: General: well appearing, of stated age, in no acute distress Neurology: alert and oriented times three Psychiatry: in a happy mood Skin: Devine skin type: V Skin exam performed of bilateral hands and bilateral armpits. Skin exam normal with the exception of: On face there is pitted scarring Assessment and Plan: Hyperhidrosis -previous (failed) treatments: oral glycopyrrolate topical aluminum chloride 20% external solution -continue drysol as needed. Patient stated treatment failed for hands and is moderately effective for underarms -Discussed future Botox injection treatment. Educated patient on benefits and risks. Will need multiple treatments every 3-4 months, depending on insurance coverage. Acne scarrring -recommend RF micro needling (infini) . Discussed 3 treatments every 6-8 weeks. Quoted $1100 per treatment. Recommend Infini for skin tightening, textural improvement (fine lines, wrinkles) Lengthy discussion about expectations, side effects (eg. scarring, pigmentary changes, infections, acne flare, persistent redness, incomplete improvement), particularly the downtime associated with the treatment. Need for multiple treatments (at least 2-3) Need for anesthetic: 23% lidocaine / 7% tetracaine ointment prior to treating. Quoted $1100 per treatment The documentation for this note was completed by Christina Galeas RN acting as scribe for Eusebia Stroud MD. December 01, 2021 1:18 PM. I agree with the Chief Complaint, ROS, and Past Histories independently gathered by the clinical behaviour support teacher and the remaining scribed note accurately describes my personal service to the patient. Eusebia Stroud MD documented in this encounterUniversity Hospitals [facility]05-31-2022 Instructions* Patient Instructions* Chayo Velazquez - 12/01/2021 1:20 PM EDT Images from the original note were not included. Department of Dermatology POST-OPERATIVE GUIDELINES FOR NEUROTOXIN INJECTIONS Post-operative Instructions Botox and Dysport are both Neurotoxins. The Neurotoxin that you received today is Please follow these guidelines after a Neurotoxin injection. Care for Injection Sites 1. Avoid massaging or rubbing the treated area for 24 hours. 2. No strenuous activity or bending over first 24 hours. 3. Move your facial muscles approximately 10 times an hour until bedtime. 4. Do not lie flat for at least 5 hours. 5. Neurotoxins should start to work within one week. Peak results should be seen in two weeks. 6. Avoid aspirin or other anti-inflammatory medications for at least 48 hours. 7. Some small red spots may be visible on the skin after treatment, as well as minor bruising. Bruising normally resolves within a couple days to a couple of weeks. Swelling may last 1-2 days. 8. You may apply cosmetics, moisturizers or lotion but do not do anything that causes pressure or discomfort. For questions or concerns, please call the Nurses' Station at . To make an appointment in Dermatology Surgery, please call Shandra or Cathy . [facility] POST CARE INSTRUCTIONS -Do not apply makeup to treated areas for 24 hours -Only use the cleanser and serum we provide for the first 24 hours -It is normal for your skin to take up to 7 days to look and feel normal -24 hours after your procedure it is safe to use gentle skin cleansers (Dove, Cetaphil) and gentle facial moisturizers -Most people need a series of treatments (at least 3-4) spaced every 4-6 weeks to notice significant improvement. It takes 3-6 months to see full effects of treatment. *DO NOT USE ANY GLYCOLIC ACIDS, RETINOIDS, OR ANTI-AGING/ ANTI-ACNE CARE PRODUCTS UNTIL AT LEAST 7 DAYS AFTER YOUR TREATMENT. documented in this encounterThe [facility] at [facility] note Author Nicolette Myles [facility] Note Date/Time January 29, 2025 1:27 pm [facility] Medical Records Department [address] [place] [address] Pre-Anesthesia Evaluation 01/29/25 1322 MR#: [id number] Acct: [id number] Name: RITA LEWIS Rep #:[id number] : 1970 54 From: Nicolette canales CRNA PCP: Dr. Yazmin Campbell MD Status:REG S DC Y Race: AA Location: [place] [address] ASA Classification* ASA Classification ASA Classification: 1 Assessment & Plan Anesthesia* Anesthesia Assessment Anesthesia Assessment: Discussed sedation and/or anesthesia options, risks, benefits, and alternatives with patient/parents/legal guardian/POA. Questions invited. The patient/parents/legal guardian/POA seems to understand and agrees to proceedwith anesthesia plan. Reviewed the physical assessment, medical history, allergy history and patient home medications list prior to surgery/procedure/anesthetic and documented any changes. Performed airway and anesthesia risk assessments. Anesthesia Type Anesthesia Type: MAC History Source History Obtained from:: Patient and Chart Anesthesia Focused Assessment* Temperature: 98.6 F Pulse Rate: 56 Blood Pressure: 130/85 Respiratory Rate: 14 Pulse Ox: 99 Oxygen Delivery Method: Room Air Airway Assessment Mouth opens: >3 cm Mallampati Score: II Teeth Condition: Intact Neck Range of motion (ROM): Full ROM Labs Anesthesia Preop lab: CBC WBC 9.4 K/mm3 (4.4-11.0) 10/14/23 01:13 10/14/23 RBC 4.94 M/mm3 (4.6-6.2) 10/14/23 01:13 10/14/23 Hgb 14.5 g/dL (13.0-16.5) 10/14/23 01:13 10/14/23 Hct 41.6 % (40-54) 10/14/23 01:13 10/14/23 Plt Count 263 K/mm3 (150-450) 10/14/23 01:13 10/14/23 CHEMISTRY Potassium 3.3 mmol/L (3.5-5.1) L 10/14/23 01:13 10/14/23 Sodium 137 mmol/L (136-145) 10/14/23 01:13 10/14/23 Magnesium 2.2 mg/dL (1.6-2.6) 10/14/23 01:13 10/14/23 BUN 18 mg/dL (7-18) 10/14/23 01:13 10/14/23 Creatinine 1.24 mg/dL (0.70-1.30) 10/14/23 01:13 10/14/23 Glucose 111 mg/dL (74-106) H 10/14/23 01:13 10/14/23 COAG Pre-Assessment Diagnosis/Proposed Procedure Planned Operative Procedure(s): EGD Anesthesia History Anesthesia History - lapidarist: Anesthesia History - lapidarist Hx Hospitalization No 01/24/25 13:31 Any Problems With Anesthesia No 01/24/25 13:31 Cholinesterase deficiency No 01/24/25 13:31 You/Your Family Experience No 01/24/25 13:31 fever (hyperthermia) with Relationship Recent Exposure to Contagious No 01/29/25 12:53 Disease Does patient have nerve No 01/24/25 13:31 stimulator Patient instructed to have device shut off --Does patient have Pacemaker No 01/29/25 12:53 or ICD? When Was Last Pacemaker Check QUESTION #4 FULL TEXT: You/Your Family Experience fever (hyperthermia) with Anesthesia Last Oral Intake Last Oral intake: Last Oral Intake NPO since 22:00 01/29/25 12:53 Meds taken in AM with sips of No 01/29/25 12:53 water? Meds patient instructed to take am of surgery PONV PONV - lapidarist: PONV - lapidarist Female No 01/24/25 13:31 HX of Motion Sickness No 01/24/25 13:31 HX of N/V After Surgery No 01/24/25 13:31 Non-Smoker Yes 01/24/25 13:31 Duration of Surgery greater No 01/24/25 13:31 than 60 minutes Number of Risk Factors 1 01/24/25 13:31 PONV Score Low Risk 01/24/25 13:31 Height & Weight Height & Weight: Anesthesia: Height & Weight Height 5 ft 7 in 01/29/25 12:53 Weight: 88 kg 01/29/25 12:53 Body Mass Index (BMI) 30.4 01/29/25 12:53 Respiratory Assessment Respiratory Assessment - lapidarist: Respiratory Tract Infection Hx - lapidarist Hx Respiratory Tract Infection No 01/24/25 13:31 STOP Sleep Apnea STOP Sleep Apnea - lapidarist: STOP Sleep Apnea - lapidarist Hx Hypertension No 01/24/25 13:31 Hx Sleep Apnea No 01/24/25 13:31 CPAP BIPAP Do you snore loudly (louder No 01/24/25 13:31 than talking or can be heard Do you often feel tired/ No 01/24/25 13:31 fatigued/ sleepy during daytime? Has anyone observed you stop No 01/24/25 13:31 breathing during sleep? STOP Results Negative 01/24/25 13:31 QUESTION #5 FULL TEXT : Do you snore loudly (louder than talking or can be heard through closed doors)? 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 Specify any problems Hx of Preganancy in last 3 N/A 01/24/25 13:31 Months Nurse Filling Out Transfusion [email or web address] 01/24/25 13:31 & Questions: Date: 01/24/25 01/24/25 13:31 Time: 13:33 01/24/25 13:31 Patient unable to answer at this time (ie. confused, unrespo /Reproduction History /Reproductive History - lapidarist: /Reproductive Hx- lapidarist Hx Now Gestational Age (in weeks): EDC: Hx Hx Para Hx Section SAB Active Medications Active Medications: Current Medications Generic Name Dose Route Start Last Admin Trade Name Freq PRN Reason Stop Dose Admin Lactated Ringer's 1,000 mls @ 15 mls/hr 01/29/25 12:45 01/29/25 13:02 IV 15 mls/hr .Q48H ELEONORA Administration PFSH Medical History (Updated 01/24/25 @ 13:36 by Dean Newsome) Wears contact lenses Wears hearing aid Loss of hearing Colonoscopy planned Former smoker Gastric reflux Home Medications ?Medication ?Instructions ?Recorded ?Last Taken ?Type omeprazole 40 mg capsule,delayed 40 mg PO QDAY PRN ASHWINI D 01/24/25 01/26/25 History release Allergy/AdvReac Type Severity Reaction Status Date / Time No Known Allergies Allergy Verified 01/29/25 12:52 Surgical History (Updated 01/24/25 @ 13:36 by Dean Newsome) H/O knee surgery Social History Smoking Status: Never smoker Review of Systems (Anesthesia) ROS Narrative System reviewed and no additional complaints, except as documented. 01/29/25 1327 <Electronically signed by Nicolette gomez CRNA> Date _ Nicolette Myles CRNA Cosigner Signature: Date CC: ~ Signed [facility] Work Phone: Consult note Author Sylvia Luna [facility] Note Date/Time January 29, 2025 2:36 pm [facility] Medical Records Department [address] [place] [address] Anesthesia Postop Eval I 01/29/25 1435 MR#: [id number] Acct: [id number] Name: RITA LEWIS Rep #:[id number] : 1970 54 From: Sylvia FRANCES PCP: Dr. Yazmin Campbell MD Status:REG S DC Y Race: AA Location: [place] [address] Anesthesia: Postop Eval I Current Vital Signs Temperature: 98.8 F Pulse Rate: 64 Blood Pressure: 117/79 Respiratory Rate: 16 Pulse Ox: 98 Oxygen Delivery Method: Room Air Assessment Airway patent: Yes Spontaneous unlabored respirations: Yes Mental status: Awake and Calm nausea: No Vomiting: No Anesthesia Complication: No Fluid Hydration Crystalloid volume administer (ml): 200 Total IV fluid infused: 200 Progress Note Anesthesia document: Postop Eval 1 completed: Yes 01/29/25 1436 <Electronically signed by Sylvia Luna CRNA> Date _ Sylvia Luna CRNA Cosigner Signature: Date CC: ~ Signed [facility] Work Phone: Evaluation note* Diagnosis Erectile dysfunction, unspecified erectile dysfunction type [facility] [place] [facility]* Diagnosis Axillary hyperhidrosis- Primary Primary focal hyperhidrosis Hyperhidrosis of hands Primary focal hyperhidrosis documented [facility] [place] [facility]* Diagnosis Erectile dysfunction, unspecified erectile dysfunction type documented [facility] [place] [facility]* Diagnosis Erectile dysfunction, unspecified erectile dysfunction type [facility] [place] [facility]* Diagnosis Axillary hyperhidrosis Primary focal hyperhidrosis [facility] [place] [facility]* Diagnosis Erectile dysfunction, unspecified erectile dysfunction type- Primary Encounter for immunization Need for other specified prophylactic vaccination against single bacterial disease Special screening examination for viral disease Special screening examination for unspecified viral disease Screening for HIV (human immunodeficiency virus) Special screening examination for other specified viral diseases Blood in stool Colon cancer screening Special screening for malignant neoplasms, colon Excessive cerumen in both ear canals [facility] [place] [facility]* Diagnosis Hyperhidrosis of palms- Primary Primary focal hyperhidrosis documented [facility] [place] [facility]* Diagnosis Erectile dysfunction, unspecified erectile dysfunction type documented [facility] encounter [facility] [place] noteNo assessment information [facility] Work Phone: Evaluation note* Diagnosis Hyperhidrosis of palms- Primary Primary focal hyperhidrosis [facility] Diagnosis Encounter for screening for malignant neoplasm of colon- Primary Special screening for malignant neoplasms, colon Special screening for malignant neoplasms, colon [facility] Diagnosis Hyperhidrosis of palms- Primary Primary focal hyperhidrosis Axillary hyperhidrosis Primary focal hyperhidrosis [facility]* Diagnosis Erectile dysfunction, unspecified erectile dysfunction type- Primary Hypokalemia Hypopotassemia Hand cramp Cramp of limb Class 1 obesity with body mass index (BMI) of 30.0 to 30.9 in adult, unspecified obesity type, unspecified whether serious comorbidity present Annual physical exam Routine general medical examination at a health care facility [facility] Diagnosis Bronchitis Bronchitis, not specified as acute or chronic [facility] Diagnosis Hyperhidrosis of palms- Primary Primary focal hyperhidrosis [facility]* Diagnosis Mixed hyperlipidemia- Primary Elevated glucose Other abnormal glucose Screening for prostate cancer Special screening for malignant neoplasm of prostate Acute cough [facility] Diagnosis Hyperhidrosis of palms- Primary Primary focal hyperhidrosis [facility]* Diagnosis Onset Date Resolution Status Admit Date Gastroesophageal reflux disease none active December 05, 2024 3:55pm [facility] Work Phone: Evaluation note* Diagnosis Annual physical exam- Primary Routine general medical examination at a health care facility Gastroesophageal reflux disease, unspecified whether esophagitis present Prediabetes Other abnormal glucose Elevated blood pressure reading Elevated blood pressure reading without diagnosis of hypertension Mixed hyperlipidemia Family history of early CAD Family history of ischemic heart disease Bilateral impacted cerumen Impacted cerumen Screening for depression Encounter for screening examination for other mental health and behavioral disorders Special screening examination for viral disease Special screening examination for unspecified viral disease Screening for HIV (human immunodeficiency virus) Special screening examination for other specified viral diseases [facility] Jhonathan House [facility] Note Date/Time January 29, 2025 2:01 pm [facility] Medical Records Department [address] [place] [address] History & Physical Exam 01/29/25 1359 MR#: [id number] Acct: [id number] Name: RITA LEWIS Rep #:[id number] : 1970 54 From: Jhonathan House DO PCP: Dr. Yazmin Campbell MD Status:REG S DC Location: [place] [address] HPI - General General Date of Admission: 01/29/25 Date of Service: 01/29/25 Chief Complaint: GERD HPI Narrative RITA LEWIS, is a 54 M who presents with the Chief Complaint: GERD Over the past two weeks patient has been having nocturnal heartburn symptoms. This is not something he has had in the past. The first night he woke up with burning pain and was unable to breath. He notes he did have a lot of pizza and soda the night prior. He has been nervous since then and taking measures to avoid this like sleeping upright. He notices some reflux during the day. He has never had an EGD or been on PPI. Last colonoscopy was in 2022 with recommendation for repeat in 10 years. HE has had polyps in the past. [facility] Medical History Wears contact lenses Wears hearing aid Loss of hearing Colonoscopy planned Former smoker Gastric reflux Home Medications ?Medication ?Instructions ?Recorded ?Last Taken ?Type omeprazole 40 mg capsule,delayed 40 mg PO QDAY PRN ASHWINI D 01/24/25 01/26/25 History release Allergy/AdvReac Type Severity Reaction Status Date / Time No Known Allergies Allergy Verified 01/29/25 12:52 Surgical History H/O knee surgery Social History Smoking Status: Never smoker ROS Constitutional Constitutional: Denies fatigue, fever(s), poor appetite, weight gain or weight loss Gastrointestinal Gastrointestinal: Denies belching, bloating, change in bowel habits, change in stool character, chewing difficulty, coffee ground emesis, constipation, cramping, diarrhea, dyspepsia, dysphagia, early satiety, excessive flatus, fecalincontinence, heartburn, hematemesis, hematochezia, hemorrhoids, loose stools, melena, nausea, odynophagia, rectal bleeding, tenesmus, vomiting or weight changes Vital Signs Vital Signs Vital Signs: 01/29/25 12:53 01/29/25 12:53 01/29/25 13:27 Temperature 98.6 F 98.6 F Temperature Source Temporal Pulse Rate 56 L 56 L Respiratory Rate 14 14 Respiratory Pattern Normal Blood Pressure 130/85 H 130/85 H Blood Pressure Mean 100 Blood Pressure Source Monitor Blood Pressure Position Semi-Fowlers Blood Pressure Location Right Arm Pulse Ox 99 99 Oxygen Delivery Method Room Air Room Air Weight Weight: 194 lb 0.108 oz Body Mass Index (BMI) 30.4 Physical Exam Const alert, oriented x3, no apparent distress and healthy appearing General Appearance: cooperative GI normal to inspection, nondistended, normoactive bowel sounds, soft to palpation,non-tender and non-distended Percussion: normal to percussion Rectal Exam: deferred Assessment & Plan Assessment/Plan (1) GERD (gastroesophageal reflux disease): PLAN: Assessment and Plan Assessment and Plan (1) Gastroesophageal reflux disease: Plan: Rita is a 54 yo male pt with reflux symptoms x2 weeks. Pt notes waking up during the night with inability to breath and burning pain in his esophagus. He now feels some GERD throughout the day. He has never had an EGD. Pt likely has GERD with possible laryngospasm. I have started him on omeprazole 40 mg daily. We may add famotidine if needed. He was scheduled for EGD however if his symptoms resolve he may cancel. He was advised to avoid fatty foods, caffeine, carbonation and chocolate. He will continue to sleep with the head of his bed elevated. -Start omeprazole 40 mg daily -EGD if symptoms do not resolve -Consider famotidine in the evening -f/u after pecodure or sooner if needed Medications: New omeprazole 40 mg PO QDAY 30 caps 1RF 01/29/25 1401 <Electronically signed by Jhonathan House DO> Cosigner Signature (if applicable): CC: Dr. Yazmin Campbell MD; Jhonathan House DO~ Signed [facility] Work Phone: Hospital Discharge instructions Additional Instructions Your potassium was slightly low today which could have been the cause of your muscular spasm/hand cramping. Take the prescribed medication for the next week to bring the value to a normal level and keep yourself well-hydrated. [facility] the ER should [facility] have any [facility] Work Phone: Reason for referral (narrative)* Outpatient Procedure (Routine) - Closed Specialty Diagnoses / Procedures Referred By Contac t Referred To Contact [facility] Diagnoses Special screening for malignant neoplasms, colon Procedures COLONOSCOPY SCREENING COLONOSCOPY FLX DX W/COLLJ SPEC WHEN PFRMD Brittnee Sheffield APRN.EMBROIDERER [address] [place] [address] Thiago Barboza MD [address] [place] [address] Referral ID Status Reason Start Date Expiration Date V isits Requested Visits Authorized [id number] Closed Auto-Generate d Referral 01/11/2023 07/03/2023 1 1 [facility])No reason for referral information [facility] Work Phone: Reason for visit Narrative* Outpatient Procedure (Routine) - Closed Specialty Diagnoses / Procedures Referred By Augie bui Referred To Contact [facility] Diagnoses Special screening for malignant neoplasms, colon Procedures COLONOSCOPY SCREENING COLONOSCOPY FLX DX W/COLLJ SPEC WHEN PFRMD Brittnee Sheffield APRN.EMBROIDERER [address] [place] [address] Thiago Barboza MD [address] [place] [address] Referral ID Status Reason Start Date Expiration Date V isits Requested Visits Authorized [id number] Closed Auto-Generate d Referral 01/11/2023 07/03/2023 1 1 [facility] Summary Purpose Family History No Family History Records FoundNo Family History Records FoundNo Family History Records FoundNo Family History Records Found Advance Directives Documents on File Type Date Recorded 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 No January 24, 2025 1:31pm Reason for Referral Specialty Diagnoses / Procedures Referred By Contac t Referred To Contact General Surgery Diagnoses Colon cancer screening Procedures CONSULT TO GENERAL SURGERY OFFICE/OUTPATIENT [facility] 60-74 MINUTES Yanet Alexis, VENTILATOR SPECIALIST.JAVA SECURITY ARCHITECT [address] [place] [address] Referral ID Status Reason Start Date Expiration Date Visits Requested Visits Authorized [id number] Pending Review PCP Requested Referral 03/16/2022 03/16/2023 1 1 Specialty Diagnoses / Procedures Referred By Contac t Referred To Contact Urology Diagnoses Erectile dysfunction, unspecified erectile dysfunction type Procedures CONSULT TO UROLOGY OFFICE/OUTPATIENT [facility] 60-74 MINUTES Yanet Alexis, VENTILATOR SPECIALIST.JAVA SECURITY ARCHITECT [address] [place] [address] Referral ID Status Reason Start Date Expiration Date Visits Requested Visits Authorized [id number] Pending Review PCP Requested Referral 03/16/2022 03/16/2023 1 1 Specialty Diagnoses / Procedures Referred By Contac t Referred To Contact Diagnoses Erectile dysfunction, unspecified erectile dysfunction type Brittnee Sheffield APRN.EMBROIDERER [address] [place] [address] Referral ID Status Reason Start Date Expiration Date V isits Requested Visits Authorized [id number] Pending Review 1 1 Specialty Diagnoses / Procedures Referred By Contac t Referred To Contact Mani Welch MD [address] [place] [id number] Referral ID Status Reason Start Date Expiration Date Visits Re quested Visits Authorized [id number] Closed 04/23/2024 06/22/2024 1 1 Chief Complaint and Reason for Visit Chief Complaint COLONOSCOPY vomiting Chief Complaint n/t right arm Chief Complaint Admit Date Acid reflux December 05, 2024 3:55p m Reason for Visit Admit Date Gastroesophageal reflux disease December 3:55pm Reason for Visit Admit Date Gastroesophageal reflux disease December 3:55pm GERD (gastroesophageal reflux disease) J claus 2024 12:29pm Medications Administered Section Inactive Administered Medications - up to 3 most recent administrations Medication Order MAR Action Action Date Dose Rate Site onabotulinum toxin type A 200 Units injection (BOTOX) 200 Units, INTRADERMAL, ONCE, 1 dose, On Tue02/02/23 at 0900, This record documents the total dose provided to patient. See progress note for specific locations and amounts administered. REFRIGERATE - Pharmaceutical Waste: Lab Pack - Given 02/02/2023 9:00 AM EDT 200 Units Hand, Left Inactive Administered Medications - up to 3 most recent administrations Medication Order MAR Action Action Date Dose Rate Site diphenhydrAMINE 12.5-50 mg injection (BENADRYL) 12.5-50 mg, INTRAVENOUS, DIRECTED, Starting on Tue01/14/23 at 1100, Until Tue01/14/23 at 1459, DOSING DIRECTED BY PHYSICIAN FOR PROCEDURAL SEDATION ONLY, Intraprocedure Given 01/14/2023 10:31 AM EDT 50 mg fentaNYL 50 mcg/mL 25-100 mcg injection (SUBLIMAZE) 25-100 mcg, INTRAVENOUS, DIRECTED, Starting on Tue01/14/23 at 1100, Until Tue01/14/23 at 1459, DOSING DIRECTED BY PHYSICIAN FOR PROCEDURAL SEDATION ONLY, Intraprocedure Given 01/14/2023 10:37 AM EDT 50 mcg Given 01/14/2023 10:29 AM EDT 50 mcg lactated ringers iv infusion 30 mL/hr, INTRAVENOUS, CONTINUOUS, Starting on Tue01/14/23 at 1000, Until Tue01/14/23 at 1148, Preprocedure New Bag/Syringe/Bottle 01/14/2023 10:19 AM EDT 30 mL/hr 30 mL/hr midazolam 1-5 mg injection (VERSED) 1-5 mg, INTRAVENOUS, DIRECTED, Starting on Tue01/14/23 at 1100, Until Tue01/14/23 at 1459, DOSING DIRECTED BY PHYSICIAN FOR PROCEDURAL SEDATION ONLY, Intraprocedure Given 01/14/2023 10:33 AM EDT 2 mg Given 01/14/2023 10:29 AM EDT 3 mg Additional Source Comments (unrecognized sect ion and content) No Status Records FoundNo Status Records FoundNo Status Records FoundNo Status Records Found INFORMATION SOURCE (unrecogn ized section and content) DATE CREATED AUTHOR 08/23/2018 [facility] ([place]) DATE CREATED AUTHOR AUTHOR'S ORGANIZ ATION 01/18/2023 [facility] DATE CREATED AUTHOR AUTHOR'S ORGANIZ ATION 12/29/2024 [facility] DATE CREATED AUTHOR AUTHOR'S ORGANIZ ATION 01/29/2025 [facility] Source Comments (unrecognize d section and content) In the event this informatio n is protected by the Federal Confidentiality of Alcohol and Drug Abuse Patient Records regulations: The Federal rules restrict any use of the information to criminally investigate or prosecute any alcohol or drug abuse patient.[facility] Center[facility] the event this information is protected by the Federal Confidentiality of Alcohol and Drug Abuse Patient Records regulations: The Federal rules restrict any use of the information to criminally investigate or prosecute any alcohol or drug abuse patient.[facility] CenterIn the event this information is protected by the Federal Confidentiality of Alcohol and Drug Abuse Patient Records regulations: The Federal rules restrict any use of the information to criminally investigate or prosecute any alcohol or drug abuse patient.[facility] CenterIn the event this information is protected by the Federal Confidentiality of Alcohol and Drug Abuse Patient Records regulations: The Federal rules restrict any use of the information to criminally investigate or prosecute any alcohol or drug abuse patient.[facility] CenterIn the event this information is protected by the Federal Confidentiality of Alcohol and Drug Abuse Patient Records regulations: The Federal rules restrict any use of the information to criminally investigate or prosecute any alcohol or drug abuse patient.[facility] CenterIn the event this information is protected by the Federal Confidentiality of Alcohol and Drug Abuse Patient Records regulations: The Federal rules restrict any use of the information to criminally investigate or prosecute any alcohol or drug abuse patient.[facility] CenterIn the event this information is protected by the Federal Confidentiality of Alcohol and Drug Abuse Patient Records regulations: The Federal rules restrict any use of the information to criminally investigate or prosecute any alcohol or drug abuse patient.[facility] CenterIn the event this information is protected by the Federal Confidentiality of Alcohol and Drug Abuse Patient Records regulations: The Federal rules restrict any use of the information to criminally investigate or prosecute any alcohol or drug abuse patient.[facility] CenterIn the event this information is protected by the Federal Confidentiality of Alcohol and Drug Abuse Patient Records regulations: The Federal rules restrict any use of the information to criminally investigate or prosecute any alcohol or drug abuse patient.[facility] CenterIn the event this information is protected by the Federal Confidentiality of Alcohol and Drug Abuse Patient Records regulations: The Federal rules restrict any use of the information to criminally investigate or prosecute any alcohol or drug abuse patient.[facility] CenterIn the event this information is protected by the Federal Confidentiality of Alcohol and Drug Abuse Patient Records regulations: The Federal rules restrict any use of the information to criminally investigate or prosecute any alcohol or drug abuse patient.[facility] CenterIn the event this information is protected by the Federal Confidentiality of Alcohol and Drug Abuse Patient Records regulations: The Federal rules restrict any use of the information to criminally investigate or prosecute any alcohol or drug abuse patient.[facility] CenterIn the event this information is protected by the Federal Confidentiality of Alcohol and Drug Abuse Patient Records regulations: The Federal rules restrict any use of the information to criminally investigate or prosecute any alcohol or drug abuse patient.[facility] CenterIn the event this information is protected by the Federal Confidentiality of Alcohol and Drug Abuse Patient Records regulations: The Federal rules restrict any use of the information to criminally investigate or prosecute any alcohol or drug abuse patient.[facility] CenterIn the event this information is protected by the Federal Confidentiality of Alcohol and Drug Abuse Patient Records regulations: The Federal rules restrict any use of the information to criminally investigate or prosecute any alcohol or drug abuse patient.[facility] CenterIn the event this information is protected by the Federal Confidentiality of Alcohol and Drug Abuse Patient Records regulations: The Federal rules restrict any use of the information to criminally investigate or prosecute any alcohol or drug abuse patient.[facility] CenterIn the event this information is protected by the Federal Confidentiality of Alcohol and Drug Abuse Patient Records regulations: The Federal rules restrict any use of the information to criminally investigate or prosecute any alcohol or drug abuse patient.[facility] CenterIn the event this information is protected by the Federal Confidentiality of Alcohol and Drug Abuse Patient Records regulations: The Federal rules restrict any use of the information to criminally investigate or prosecute any alcohol or drug abuse patient.[facility] CenterIn the event this information is protected by the Federal Confidentiality of Alcohol and Drug Abuse Patient Records regulations: The Federal rules restrict any use of the information to criminally investigate or prosecute any alcohol or drug abuse patient.[facility] CenterIn the event this information is protected by the Federal Confidentiality of Alcohol and Drug Abuse Patient Records regulations: The Federal rules restrict any use of the information to criminally investigate or prosecute any alcohol or drug abuse patient.[facility] CenterIn the event this information is protected by the Federal Confidentiality of Alcohol and Drug Abuse Patient Records regulations: The Federal rules restrict any use of the information to criminally investigate or prosecute any alcohol or drug abuse patient.[facility] CenterIn the event this information is protected by the Federal Confidentiality of Alcohol and Drug Abuse Patient Records regulations: The Federal rules restrict any use of the information to criminally investigate or prosecute any alcohol or drug abuse patient.[facility] CenterIn the event this information is protected by the Federal Confidentiality of Alcohol and Drug Abuse Patient Records regulations: The Federal rules restrict any use of the information to criminally investigate or prosecute any alcohol or drug abuse patient.[facility] CenterIn the event this information is protected by the Federal Confidentiality of Alcohol and Drug Abuse Patient Records regulations: The Federal rules restrict any use of the information to criminally investigate or prosecute any alcohol or drug abuse patient.[facility] CenterIn the event this information is protected by the Federal Confidentiality of Alcohol and Drug Abuse Patient Records regulations: The Federal rules restrict any use of the information to criminally investigate or prosecute any alcohol or drug abuse patient.[facility] CenterIn the event this information is protected by the Federal Confidentiality of Alcohol and Drug Abuse Patient Records regulations: The Federal rules restrict any use of the information to criminally investigate or prosecute any alcohol or drug abuse patient.[facility] CenterIn the event this information is protected by the Federal Confidentiality of Alcohol and Drug Abuse Patient Records regulations: The Federal rules restrict any use of the information to criminally investigate or prosecute any alcohol or drug abuse patient.[facility] CenterIn the event this information is protected by the Federal Confidentiality of Alcohol and Drug Abuse Patient Records regulations: The Federal rules restrict any use of the information to criminally investigate or prosecute any alcohol or drug abuse patient.[facility] CenterIn the event this information is protected by the Federal Confidentiality of Alcohol and Drug Abuse Patient Records regulations: The Federal rules restrict any use of the information to criminally investigate or prosecute any alcohol or drug abuse patient.[facility] CenterIn the event this information is protected by the Federal Confidentiality of Alcohol and Drug Abuse Patient Records regulations: The Federal rules restrict any use of the information to criminally investigate or prosecute any alcohol or drug abuse patient.[facility] CenterIn the event this information is protected by the Federal Confidentiality of Alcohol and Drug Abuse Patient Records regulations: The Federal rules restrict any use of the information to criminally investigate or prosecute any alcohol or drug abuse patient.[facility] CenterIn the event this information is protected by the Federal Confidentiality of Alcohol and Drug Abuse Patient Records regulations: The Federal rules restrict any use of the information to criminally investigate or prosecute any alcohol or drug abuse patient.[facility] CenterIn the event this information is protected by the Federal Confidentiality of Alcohol and Drug Abuse Patient Records regulations: The Federal rules restrict any use of the information to criminally investigate or prosecute any alcohol or drug abuse patient.[facility] CenterIn the event this information is protected by the Federal Confidentiality of Alcohol and Drug Abuse Patient Records regulations: The Federal rules restrict any use of the information to criminally investigate or prosecute any alcohol or drug abuse patient.[facility] CenterIn the event this information is protected by the Federal Confidentiality of Alcohol and Drug Abuse Patient Records regulations: The Federal rules restrict any use of the information to criminally investigate or prosecute any alcohol or drug abuse patient.[facility] Reason for Visit (unrecogniz ed section and content) Reason Comments Hyperhidrosis of palms Specialty Diagnoses / Procedures Referred By Augie bui Referred To Contact Dermatology / DERMATOLOGY Diagnoses Hyperhidrosis of axilla Pain, unspecified Local infection of the skin and subcutaneous tissue, unspecified Hypertrophic disorder of the skin, unspecified Unspecified disturbances of skin sensation Pruritus ani Changes in skin texture hyperhidrosis Procedures MISC NERVOUS SYS. PROCEDURE BOTULINUM TOXIN A PER 1 UNIT EST DPS[facility] GENERAL Mani Welch MD [address] [place] [address] Mani Welch MD [address] [place] [address] Referral ID Status Reason Start Date Expiration Date V isits Requested Visits Authorized [id number] Authorized 10/19/2023 10/17/2024 5 5 Reason Comments Refill Request Reason Comments Consult Reason Onset Date Comments Refill Request 02/04/2022 Reason Comments Follow Up Specialty Diagnoses / Procedures Referred By Contac t Referred To Contact Dermatology / DERMATOLOGY Diagnoses Hyperhidrosis Botox Consult Procedures OFFICE/OUTPATIENT ESTABLISHED MOD [facility] 30-39 MIN EST Yazmin Huntley MD [address] [place] [address] Mani Welch MD [address] [place] [address] Referral ID Status Reason Start Date Expiration Date V isits Requested Visits Authorized [id number] Authorized 09/16/2022 09/17/2023 20 20 Reason Onset Date Comments Refill Request 11/12/2022 Reason Comments Appointment Reason Comments Patient Update Reason Comments Clinical Update Reason Comments Information Reason Onset Date Comments Transition Of Care 01/18/2023 TCM Initial H ospital Discharge 01/17/2023 Reason Comments Procedure Specialty Diagnoses / Procedures Referred By Contac t Referred To Contact Dermatology / DERMATOLOGY Diagnoses Hyperhidrosis Botox Consult Procedures OFFICE/OUTPATIENT ESTABLISHED MOD [facility] 30-39 MIN EST Yazmin Huntley MD [address] [place] [address] Mani Welch MD [address] [place] [address] Reason Comments Insurance Authorization DONNA Delayed-Addit ional information needed Reason Comments Log Sorter - Other Reason Comments Insurance Authorization DONNA Denied-P2P re quested Reason Comments Patient Question Reason Comments Follow Up Reason Comments Results Reason Comments Insurance Authorization Specialty Diagnoses / Procedures Referred By Contac t Referred To Contact Radiology / RADIO GENERAL [facility] Diagnoses Bronchitis xr chest room 4 Procedures RADIOLOGIC EXAM CHEST 2 VIEWS XR CHEST Letitia Stovall PA-C [address] [place] [address] Radio General [facility] [address] [place] [address] Referral ID Status Reason Start Date Expiration Date Visits Re quested Visits Authorized [id number] Closed 07/21/2022 07/03/2023 1 1 Reason Comments Med Change Request Reason Comments Med Change Request Reason Comments Same Day Appointment cough x 2 weeks not iced some improvement, wants bld work patient is fasting Reason Comments Physical Annual Physical Care Teams (unrecognized sec tion and content) Manager Code Relationship Specialty Start Date End Date Yazmin Campbell MD [address] [facility] [place] [address] PCP - General Internal Medicine 07/30/16 Manager Code Relationship Specialty Start Date End Date Yazmin Campbell MD [address] [facility] [place] [address] PCP - General Internal Medicine 07/30/16 Manager Code Relationship Specialty Start Date End Date Yazmin Campbell MD [address] [facility] [place] [address] PCP - General Internal Medicine 07/30/16 Manager Code Relationship Specialty Start Date End Date Yazmin Campbell MD [address] [facility] [place] [address] PCP - General Internal Medicine 07/30/16 Manager Code Relationship Specialty Start Date End Date Yazmin Campbell MD [address] [facility] [place] [address] PCP - General Internal Medicine 07/30/16 Manager Code Relationship Specialty Start Date End Date Yazmin Campbell MD [address] [facility] [place] [address] PCP - General Internal Medicine 07/30/16 Manager Code Relationship Specialty Start Date End Date Yazmin Campbell MD [address] [facility] [place] [address] PCP - General Internal Medicine 07/30/16 Manager Code Relationship Specialty Start Date End Date Yazmin Campbell MD [address] [facility] [place] [address] PCP - General Internal Medicine 07/30/16 Manager Code Relationship Specialty Start Date End Date Yazmin Campbell MD [address] [place], [place] [address] PCP - General Internal Medicine 07/30/16 Manager Code Relationship Specialty Start Date End Date Yazmin Campbell MD [address] [place], [place] [address] PCP - General Internal Medicine 07/30/16 Manager Code Relationship Specialty Start Date End Date Yazmin Campbell MD [address] [place], [place] [id number] PCP - General Internal Medicine 07/30/16 Quiana Moses, RN [address] [place] [address] Primary Care Spouter 01/18/23 02/16/23 Team Status: Active Member Role Status Dates Dr. Yazmin Campbell MD Primary Care Provider Active Team Status: Inactive Member Role Status Dates Dr. Yazmin Campbell MD Primary Care Provider Active Earl Diaz MD Emergency Provider Active Team Status: Inactive Member Role Status Dates Dr. Thiago Barboza MD Attending Provider, Referring Provider Active Manager Code Relationship Specialty Start Date End Date Yazmin Campbell MD [address] [place] [address] PCP - General Internal Medicine 07/30/16 Quiana Moses, JOSE MANUEL [address] [place] [address] Primary Care Spouter 01/18/23 02/16/23 Manager Code Relationship Specialty Start Date End Date Yazmin Campbell MD [address] [place] [address] PCP - General Internal Medicine 07/30/16 Manager Code Relationship Specialty Start Date End Date Yazmin Campbell MD [address] [facility] [place] [address] PCP - General Internal Medicine 07/30/16 Manager Code Relationship Specialty Start Date End Date Yazmin Campbell MD [address] [facility] [place] [address] PCP - General Internal Medicine 07/30/16 Team Status: Inactive Member Role Status Dates Dr. Yazmin Campbell MD Primary Care Provider Active Dr. Mamadou Herring DO Emergency Provider Active Manager Code Relationship Specialty Start Date End Date Yazmin Campbell MD [address] [facility] [place] [address] PCP - General Internal Medicine 07/30/16 Manager Code Relationship Specialty Start Date End Date Yazmin Campbell MD [address] [facility] [place] [address] PCP - General Internal Medicine 07/30/16 Manager Code Relationship Specialty Start Date End Date Yazmin Campbell MD [address] [facility] [place] [address] PCP - General Internal Medicine 07/30/16 Manager Code Relationship Specialty Start Date End Date Yazmin Campbell MD [address] [facility] [place] [address] PCP - General Internal Medicine 07/30/16 Manager Code Relationship Specialty Start Date End Date Yazmin Campbell MD [address] [facility] [place] [address] PCP - General Internal Medicine 07/30/16 Manager Code Relationship Specialty Start Date End Date Yazmin Campbell MD [address] [facility] [place] [address] PCP - General Internal Medicine 07/30/16 Manager Code Relationship Specialty Start Date End Date Yazmin Campbell MD [address] [place] [address] PCP - General Internal Medicine 07/30/16 Manager Code Relationship Specialty Start Date End Date Yazmin Campbell MD [address] [place] [address] PCP - General Internal Medicine 07/30/16 Manager Code Relationship Specialty Start Date End Date Yazmin Campbell MD [address] [place] [address] PCP - General Internal Medicine 07/30/16 Manager Code Relationship Specialty Start Date End Date Yazmin Campbell MD [address] [place] [address] PCP - General Internal Medicine 07/30/16 Priya Oneil PA-C [address] [place] [id number] Data Warehouse Administrator Family Medicine 06/10/24 Brittnee Sheffield APRN.CNP [address] [place] [address] Data Warehouse Administrator Internal Medicine 06/10/24 Gunnar Lopez PA-C [address] [place] [address] Data Warehouse Administrator Family Medicine 06/10/24 Manager Code Relationship Specialty Start Date End Date Yazmin Campbell MD [address] [place] [address] PCP - General Internal Medicine 07/30/16 Older, Brittnee, VENTILATOR SPECIALIST.EMBROIDERER [address] [facility], [place] [id number] Data Warehouse Administrator Internal Medicine 06/10/24 Manager Code Relationship Specialty Start Date End Date Yazmin Campbell MD [address] [facility] [place], [place] [id number] PCP - General Internal Medicine 07/30/16 Older, Brittnee, VENTILATOR SPECIALIST.EMBROIDERER [address] [facility], [place] [address] [facility] Internal Medicine 06/10/24 Team Status: Inactive Member Role Status Dates Dr. Yazmin Campbell MD Primary Care Provider Active Start: December 05, 2024 End: December 05, 2024 Dr. Yazmin Campbell MD Referring Provider Active Start: December 05, 2024 End: December 05, 2024 DONNA Nunes Attending Provider Active Start: December 05, 2024 End: December 05, 2024 Manager Code Relationship Specialty Start Date End Date Yazmin Campbell MD [address] [place], [place] [id number] PCP - General Internal Medicine 07/30/16 Brittnee Sheffield, VENTILATOR SPECIALIST.EMBROIDERER [address] [place] [address] [facility] Internal Medicine 06/10/24 Team Status: Active Member Role/Relationship Status Dates Dr. Yazmin Campbell MD Primary Care Provider Active Team Status: Inactive Member Role/Relationship Status Dates Dr. Yazmin Campbell MD Primary Care Provider Active Start: December 05, 2024 End: December 05, 2024 Dr. Yazmin Campbell MD Referring Provider Active Start: December 05, 2024 End: December 05, 2024 DONNA Nunes Attending Provider Active Start: December 05, 2024 End: December 05, 2024 Team Status: Inactive Member Role/Relationship Status Dates Dr. Yazmin Campbell MD Primary Care Provider Active Start: January 29, 2025 End: January 29, 2025 Dr. Yazmin Campbell MD Referring Provider Active Start: January 29, 2025 End: January 29, 2025 Dr. Jhonathan House DO Attending Provider Active Start: January 29, 2025 End: January 29, 2025 Team Status: Active Member Role/Relationship Status Dates Dr. Yazmin Campebll MD Primary Care Provider Active Start: January 29, 2025 Dr. Yazmin Campbell MD Referring Provider Active Start: January 29, 2025 Dr. Jhonathan House DO Attending Provider Active Start: January 29, 2025 Dr. Jhonathan House DO Other Provider Active St art: January 29, 2025 Goals (unrecognized section and content) Goals may be documented in a n alternate sectionGoals may be documented in an alternate sectionGoals may be documented in an alternate section Inactive Administered Medications - up to 3 most recent administrations Administered Medications (un recognized section and content) Medication Order MAR Action Action Date Dose Rate Site onabotulinum toxin type A 200 Units injection (BOTOX) 200 Units, INTRADERMAL, ONCE, 1 dose, On Tue10/19/23 at 1500, This record documents the total dose provided to patient. See progress note for specific locations and amounts administered. REFRIGERATE - Pharmaceutical Waste: Lab Pack - Given 10/19/2023 3:00 PM EDT 200 Units Hand, Left FOR RECORDS PERTAINING TO PATIENTS WHO ARE OR HAVE BEEN ENROLLED IN A CHEMICAL DEPENDENCY/SUBSTANCEABUSE PROGRAM, SOME INFORMATION MAY BE OMITTED. This clinical summary was aggregated from multiple sources. Caution should be exercised in using it in the provision of clinical care. This summary normalizes information from multiple sources, and as a consequence, information in this document may materially change the coding, format and clinical context of patient data. In addition, data may be omitted in some cases. CLINICAL DECISIONS SHOULD BE BASED ON THE PRIMARY CLINICAL RECORDS. [employer] [facility] provides no warranty or guarantee of the accuracy or completeness of information in this document.
== END 2025-01-29 15:09 | disposition home or self-care (01) ==
LOC: EN 12:31 → AC 12:32
PROVIDERS: PCP Internal Medicine; Referring Provider Internal Medicine; Visit Provider Internal Medicine Gastroenterology
PROC: 0DJ08ZZ Inspection of Upper Intestinal Tract, Via Natural or Artificial Opening Endoscopic (ICD-10-PCS; CPT 43235; principal; 2025-01-29 13:25)
DX: K21.9 Gastro-esophageal reflux disease without esophagitis (principal); K22.89 Other specified disease of esophagus; K31.89 Other diseases of stomach and duodenum; Z86.0100 Personal history of colon polyps, unspecified
CPT/HCPCS: 43239; 88305; J2405